=== PATIENT | male | born 1935 | race Caucasian/White ===

== ENCOUNTER → 2018-08-22 10:26 | Outpatient (CLI) | payer OTHER, SELFPAY | PROVIDERS: Family Provider Internal Medicine; PCP Internal Medicine; Visit Provider Family Medicine | DX: C16.9 Malignant neoplasm of stomach, unspecified (principal) | CPT/HCPCS: 99212 ==

== ENCOUNTER → 2018-08-23 15:49 | Outpatient (CLI) | payer OTHER, SELFPAY ==
--- NOTE | 2018-08-23 17:05 | DI.US.S_ITS ---
PROCEDURE: US CAROTID DOPPLER BI INDICATIONS: Peripheral vascular disease TECHNIQUE: Color and pulse Doppler interrogation was performed of both carotid systems, with image documentation and velocity measurements. COMPARISON: [facility], [place], CAROTID ARTERY DOPPLER BILAT, 02/28/2012, 11:10. [facility], [place], CAROTID ARTERY DOPPLER BILAT, 03/05/2010, 9:18. [facility], [place], CAROTID ARTERY DOPPLER BILAT, 05/15/2009, 8:51. [facility], [place], CAROTID ARTERY DOPPLER BILAT, 07/04/2015, 12:22. [facility], CT, SOFT TISSUE NECK W CONTRAST, 12/29/2017, 15:20. FINDINGS: Stenosis calculations are based on SRU (Society of Radiologists in Ultrasound) criteria. Right side: Brachial blood pressure: 138/76 mm Hg. Common carotid artery peak systolic velocity: 72 cm/sec (prior 57 cm/s). Internal carotid artery peak systolic velocity: Occluded Internal carotid artery end diastolic velocity: Occluded External carotid artery peak systolic velocity: 129 cm/sec (prior 89 cm/s). ICA/CCA peak systolic ratio: Occluded Westbrook scale imaging description: There is an occluded right internal carotid artery. Percent internal carotid artery stenosis: 100% Vertebral artery: Flow direction is antegrade. Left side: Brachial blood pressure: 139/74 mm Hg. Common carotid artery peak systolic velocity: 93 cm/sec (prior 111 cm/s). Internal carotid artery peak systolic velocity: 218 cm/sec (prior 80 cm/s). Internal carotid artery end diastolic velocity: 55 cm/sec (prior 80 cm/s). External carotid artery peak systolic velocity: 94 cm/sec (prior 97 cm/s). ICA/CCA peak systolic ratio: 2.3 (prior 0.72). Westbrook scale imaging description: Moderate atherosclerotic changes are seen. Percent internal carotid artery stenosis: 50-69% by velocity criteria. Vertebral artery: Flow direction is antegrade. 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 By velocity criteria, there is a moderate stenosis (between 50 and 69% stenosis) within the left proximal internal carotid artery. The true degree of stenosis is felt most likely to be at the upper end of this range. Dictated by: Albert Landis M.D. on 08/23/2018 at 17:03 Approved by: Albert Landis M.D. on 08/23/2018 at 17:06
== END ==
PROVIDERS: PCP Internal Medicine; Visit Provider Internal Medicine
DX: I65.23 Occlusion and stenosis of bilateral carotid arteries (principal); I73.9 Peripheral vascular disease, unspecified
CPT/HCPCS: 93880

== ENCOUNTER → 2018-09-11 12:05 | Outpatient (CLI) | payer OTHER, SELFPAY ==
[2018-09-11 12:23] LABS: Add Manual Diff / Slide Review NO; Basophils Percent Auto 0.7 % (0-2); Eosinophils Percent Auto 17.7 % (2-4); Hematocrit 39.9 % (41-53); Hemoglobin 13.7 g/dL (13.5-17.5); Lymphocytes Percent Auto 19.5 % (25-40); Mean Corpuscular HGB Conc 34.4 % (30-36); Mean Corpuscular Hemoglobin 34.3 PG (26-34); Mean Corpuscular Volume 99.8 fL (80-100); Neutrophils Absolute Auto 5700 /uL (3000-5900); Neutrophils Percent Auto 56.1 % (50-75); Platelet Count 224 X10^3/uL (150-400); Red Cell Distribution Width 12.9 % (11.6-14.8); White Blood Cell Count 10.2 X10^3/uL (4.5-11.0)
[2018-09-11 12:42] LABS: Erythrocyte Sedimentation Rate 15 MM/HR (0-15)
[2018-09-11 13:27] LABS: Alanine Aminotransferase 23 IU/L (21-72); Albumin 4.5 g/dL (3.5-5.0); Albumin Globulin Ratio 1.7 (1.0-2.8); Alkaline Phosphatase 65 U/L (38-126); Aspartate Aminotransferase 28 IU/L (17-59); BUN Creatinine Ratio 13.8 (6-22); Bilirubin Total 0.4 mg/dL (0.2-1.3); Blood Urea Nitrogen 18 mg/dL (9-20); C-Reactive Protein Quant 1.1 mg/dL (<1.0); Calcium 9.7 mg/dL (8.4-10.2); Carbon Dioxide 28 mmol/L (22-32); Chloride 103 mmol/L (98-107); Estimated Glomerular Filt Rate 52.9 mL/min (>60); Globulin 2.7 g/dL (1.7-4.1); Glucose 98 mg/dL (80-110); HEMOLYSIS < 15 (0-50); Potassium 4.8 mmol/L (3.4-5.1); Sodium 141 mmol/L (137-145); Total Protein 7.2 g/dL (6.3-8.2)
[2018-09-11 13:39] LABS: Free T4, Direct Thyroxine 0.82 ng/dL (0.78-2.19)
[2018-09-11 15:01] LABS: Thyroid Stimulating Hormone 4.05 uIU/mL (0.47-4.68)
== END ==
PROVIDERS: PCP Internal Medicine; Visit Provider Internal Medicine
DX: C83.10 Mantle cell lymphoma, unspecified site (principal); I25.10 Atherosclerotic heart disease of native coronary artery without angina pectoris
CPT/HCPCS: 36415; 80053; 84439; 84443; 85025; 85651; 86140

== ENCOUNTER 2018-11-24 13:28 | Emergency (ER) | payer OTHER, SELFPAY ==
--- NOTE | 2018-11-24 13:32 | ED.GENADULT ---
HPI - General Adult General Chief complaint: Recheck/Abnormal Lab/Rx Stated complaint: elevated potassium Time Seen by Provider: 11/24/18 13:30 Source: patient Mode of arrival: ambulatory Limitations: no limitations History of Present Illness HPI narrative: 83-year-old male with history of lymphoma currently undergoing palliative radiation here for evaluation after he was sent to the emergency department by his oncologist. He was sent because he had a potassium 6.5 and also an elevation in his creatinine. This was blood work that was drawn before today it was just reviewed when he was at his oncologist appointment. Patient states that in general he does not feel well. 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 He has had a history of C diff in the past and he states he feels somewhat like he did when he had C diff Related Data Home Medications Medication Instructions Recorded Confirmed lisinopril 10 mg PO QDAY #0 12/01/17 11/24/18 clopidogrel 75 mg tablet 75 mg PO DAILY 08/10/18 11/24/18 Previous Rx's Medication Instructions Recorded metoprolol succinate 50 mg PO QDAY #30 ter 12/01/17 simvastatin 80 mg PO HS #60 tab 12/01/17 Allergies Allergy/AdvReac Type Severity Reaction Status Date / Time No Known Drug Allergies Allergy Verified 11/24/18 10:57 Review of Systems Constitutional Reports fatigue, Denies fever(s) and Reports malaise Cardiovascular Denies chest pain and Reports dyspnea (This is not new.) Respiratory Reports dyspnea (This is not new.) Gastrointestinal Gastrointestinal: Denies abdominal pain, Denies change in bowel habits, Reports nausea and Denies vomiting Genitourinary Denies dysuria Musculoskeletal Denies myalgias and Denies arthralgias Integumentary/Breasts Denies lesions and Denies rash Neurologic Denies behavioral changes Psychiatric Denies behavioral changes Endocrine Reports fatigue Hematologic/Lymphatic Comments: Not on anticoagulation PFSH Social History Smoking Status: Former smoker Exam Initial Vital Signs Initial Vital Signs: Vital Signs Temperature 97.4 F L 11/24/18 13:35 Pulse Rate 113 H 11/24/18 13:35 Respiratory Rate 15 11/24/18 13:35 Blood Pressure 149/70 H 11/24/18 13:35 Pulse Oximetry 100 11/24/18 13:35 Const General: cooperative, comfortable, well developed, well groomed and No acute distress Orientation: alert, awake and oriented x3 HENMT Head: normal to inspection Resp Effort & Inspection: normal respiratory effort Auscultation: clear to auscultation bilaterally Cardio Rate: regular rate Rhythm: regular rhythm Pulses: radial pulses present GI Inspection: non-distended Palpation: soft, No firm and No tender Skin Lesions: no lesions Rashes: no rashes Neuro General: alert, awake and oriented x3 Extrem General: normal to inspection and capillary refill normal Psych Appearance: grossly normal and well kempt Course Orders Ordered: ED Orders 11/24/18 13:33 EKG-12 Lead Stat 11/24/18 13:52 Complete Blood Count AUTO DIFF Stat Comprehensive Metabolic Panel Stat Lipase Stat Vital Signs - 8 hr 11/24/18 13:35 Temperature 97.4 F L Pulse Rate 113 H Respiratory Rate 15 Blood Pressure 149/70 H Pulse Oximetry 100 Medical Decision Making Lab Data Result diagrams: 11/24/18 13:52 11/24/18 13:52 Lab Results 11/24/18 11/24/18 Range/Units 13:52 13:52 WBC 14.3 H (4.5-11.0) X10^3/uL RBC 3.27 L (4.5-5.9) X10^6/uL Hgb 10.9 L (13.5-17.5) g/dL Hct 32.7 L (41-53) % MCV 100.1 H (80-100) fL MCH 33.4 (26-34) PG MCHC 33.4 (30-36) % RDW 12.8 (11.6-14.8) % Plt Count 234 (150-400) X10^3/uL Neut % (Auto) Not Reportable Lymph % (Auto) Not Reportable Mower % (Auto) Not Reportable Eos % (Auto) Not Reportable Baso % (Auto) Not Reportable Lymph # (Auto) Not Reportable Mower # (Auto) Not Reportable Baso # (Auto) Not Reportable Total Counted 100 Seg Neutrophils % 46.0 (38-70) % Lymphocytes % (Manual) 40.0 (25-45) % Atypical Lymphs % 9.0 H ( - 0) % Monocytes % (Manual) 3.0 (2-11) % Eosinophils % (Manual) 2.0 (2-4) % Neutrophils # (Manual) 6578 H (4457-0168) /uL RBC Morphology Not Reportable Anisocytosis 2+ H Sodium 136 L (137-145) mmol/L Potassium 5.4 H (3.4-5.1) mmol/L Chloride 110 H (98-107) mmol/L Carbon Dioxide 16 L (22-32) mmol/L BUN 75 H (9-20) mg/dL Creatinine 2.20 H (0.66-1.25) mg/dL Estimated GFR 28.8 L (>60) mL/min BUN/Creatinine Ratio 34.1 H (6-22) Glucose 111 H (80-110) mg/dL Calcium 8.8 (8.4-10.2) mg/dL Total Bilirubin 0.3 (0.2-1.3) mg/dL AST 19 (17-59) IU/L ALT 25 (21-72) IU/L Alkaline Phosphatase 77 (38-126) U/L Total Protein 6.6 (6.3-8.2) g/dL Albumin 3.9 (3.5-5.0) g/dL Globulin 2.7 (1.7-4.1) g/dL Albumin/Globulin Ratio 1.4 (1.0-2.8) Lipase 455 H (23-300) U/L ECG Data Attestation: I personally reviewed and interpreted this ECG as follows: Prior ECG tracings: not available for review Interpretation: Sinus rhythm Ventricular rate of 99 Normal axis Normal QRS Normal QTC No peaked T-waves MDM Narrative Medical decision making narrative: Patient has no EKG changes. He is asymptomatic. His potassium today is better from earlier today. His creatinine is still elevated. I do not feel that he needs admitted to the hospital. Does not need treated for his potassium of 5.4. He does have a follow-up with his oncologist at the beginning of next month. He was instructed that he needed to contact his primary care doctor for a follow-up in the next couple days. He was given return precautions. He expressed understanding and agreement with plan. Discharge Plan Departure Patient Disposition: Home Clinical Impression: Hyperkalemia Instructions: DI for Hyperkalemia Activity Restrictions/Additional Instructions: Continue all of your medications as directed. Keep all of your scheduled medical appointments. Recommend that you contact your primary care today to discuss follow-up within the next week. Increase your fluid intake. Return to the emergency department for any new or worsening symptoms Prescriptions: No Action metoprolol succinate 50 MG tablet extended release 24 hr 50 mg PO QDAY Qty: 30 RF: 0 simvastatin 40 MG tablet 80 mg PO HS Qty: 60 RF: 0 lisinopril 10 MG tablet 10 mg PO QDAY Qty: 0 RF: 0 clopidogrel [Plavix] 75 mg tablet 75 mg PO DAILY RF: 0
[2018-11-24 13:35] VITALS: BP 149/70; PULSE 113; RESP 15; TEMP 36.3; O2SAT 100
[2018-11-24 13:57] LABS: Hematocrit 32.7 % (41-53); Hemoglobin 10.9 g/dL (13.5-17.5); Mean Corpuscular HGB Conc 33.4 % (30-36); Mean Corpuscular Hemoglobin 33.4 PG (26-34); Mean Corpuscular Volume 100.1 fL (80-100); Platelet Count 234 X10^3/uL (150-400); Red Blood Cell Count 3.27 X10^6/uL (4.5-5.9); Red Cell Distribution Width 12.8 % (11.6-14.8); White Blood Cell Count 14.3 X10^3/uL (4.5-11.0)
[2018-11-24 13:58] LABS: Add Manual Diff / Slide Review YES
[2018-11-24 14:08] LABS: Alanine Aminotransferase 25 IU/L (21-72); Albumin 3.9 g/dL (3.5-5.0); Albumin Globulin Ratio 1.4 (1.0-2.8); Alkaline Phosphatase 77 U/L (38-126); Aspartate Aminotransferase 19 IU/L (17-59); BUN Creatinine Ratio 34.1 (6-22); Bilirubin Total 0.3 mg/dL (0.2-1.3); Blood Urea Nitrogen 75 mg/dL (9-20); Calcium 8.8 mg/dL (8.4-10.2); Carbon Dioxide 16 mmol/L (22-32); Chloride 110 mmol/L (98-107); Estimated Glomerular Filt Rate 28.8 mL/min (>60); Globulin 2.7 g/dL (1.7-4.1); Glucose 111 mg/dL (80-110); HEMOLYSIS < 15 (0-50); Lipase 455 U/L (23-300); Sodium 136 mmol/L (137-145); Total Protein 6.6 g/dL (6.3-8.2)
[2018-11-24 14:12] LABS: Potassium 5.4 mmol/L (3.4-5.1)
[2018-11-24 14:14] LABS: Anisocytosis 2+; Neutrophils Absolute Manual 6578 /uL (3000-5900); Total Cells Counted 100
[2018-11-24 14:37] VITALS: BP 117/61; PULSE 90; RESP 20; O2SAT 100
== END 2018-11-24 14:48 | disposition home or self-care (01) ==
PROVIDERS: Emergency Provider Emergency Medicine; PCP Internal Medicine
DX: E87.5 Hyperkalemia (principal)
CPT/HCPCS: 36415; 80053; 83690; 85025; 93005; 93010; 96360; 99215; 99282; 99284

== ENCOUNTER → 2018-11-30 11:44 | Outpatient (CLI) | payer OTHER, SELFPAY ==
--- NOTE | 2018-11-30 11:47 | DI.RAD.S_ITS ---
PROCEDURE: XR ACUTE ABDOMEN SERIES INDICATIONS: diarrhea TECHNIQUE: One view chest and two views of the abdomen were acquired. COMPARISON: [facility], CT, CT ABDOMEN PELVIS WITH CONTRAST, 11/02/2018, 12:40. FINDINGS: Surgical changes and devices: Multiple surgical clips in the pelvis. Chest: Lungs are clear. Heart size is normal. No pleural effusions. No pneumoperitoneum. Abdomen: Bowel gas pattern is nonspecific with paucity of bowel gas. No suspicious calcifications. Visualized solid organ contours appear normal. Bones: No suspicious bony lesions. IMPRESSION: Nonspecific bowel gas pattern. If clinical symptoms persist or clinical suspicion for pathology is high, CT with contrast is suggested for further evaluation. Dictated by: Anne Chen M.D. on 11/30/2018 at 17:19 Approved by: Anne Chen M.D. on 11/30/2018 at 17:21
[2018-11-30 12:27] LABS: Add Manual Diff / Slide Review NO; Basophils Absolute Auto 100 /uL (0-100); Basophils Percent Auto 0.5 % (0-2); Eosinophils Absolute Auto 600 /uL (0-450); Eosinophils Percent Auto 2.6 % (2-4); Hematocrit 35.9 % (41-53); Hemoglobin 11.6 g/dL (13.5-17.5); Lymphocytes Absolute Auto 12700 /uL (1100-4500); Lymphocytes Percent Auto 51.3 % (25-40); Mean Corpuscular HGB Conc 32.4 % (30-36); Mean Corpuscular Hemoglobin 32.8 PG (26-34); Mean Corpuscular Volume 101.2 fL (80-100); Monocytes Absolute Auto 900 /uL (0-900); Monocytes Percent Auto 3.7 % (3-14); Neutrophils Absolute Auto 10300 /uL (1500-7000); Neutrophils Percent Auto 41.9 % (50-75); Platelet Count 264 X10^3/uL (150-400); Red Blood Cell Count 3.55 X10^6/uL (4.5-5.9); Red Cell Distribution Width 13.3 % (11.6-14.8); White Blood Cell Count 24.7 X10^3/uL (4.5-11.0)
[2018-11-30 13:42] LABS: Alanine Aminotransferase 39 IU/L (21-72); Albumin 4.3 g/dL (3.5-5.0); Albumin Globulin Ratio 1.9 (1.0-2.8); Alkaline Phosphatase 89 U/L (38-126); Aspartate Aminotransferase 22 IU/L (17-59); BUN Creatinine Ratio 25.6 (6-22); Bilirubin Total 0.3 mg/dL (0.2-1.3); Blood Urea Nitrogen 82 mg/dL (9-20); Calcium 10.1 mg/dL (8.4-10.2); Carbon Dioxide 15 mmol/L (22-32); Chloride 108 mmol/L (98-107); Estimated Glomerular Filt Rate 18.7 mL/min (>60); Globulin 2.3 g/dL (1.7-4.1); Glucose 127 mg/dL (80-110); HEMOLYSIS < 15 (0-50); Lipase 596 U/L (23-300); Sodium 137 mmol/L (137-145); Total Protein 6.6 g/dL (6.3-8.2)
[2018-11-30 14:00] LABS: Potassium 6.6 mmol/L (3.4-5.1)
== END ==
PROVIDERS: PCP Internal Medicine; Visit Provider Internal Medicine
DX: C83.10 Mantle cell lymphoma, unspecified site (principal); R19.7 Diarrhea, unspecified; E78.2 Mixed hyperlipidemia
CPT/HCPCS: 36415; 74022; 80053; 83690; 85025

== ENCOUNTER 2018-11-30 16:38 | Inpatient (IN) | payer OTHER, SELFPAY ==
[2018-11-30 16:40] VITALS: BP 119/61; PULSE 111; RESP 18; TEMP 36.1; O2SAT 100
[2018-11-30] MEDS: SODIUM POLYSTYRENE SULFON/SORB 15 GM/60 ML CUP PO (17:27)
[2018-11-30] MEDS: FUROSEMIDE 40 MG/4 ML VIAL IV (17:27)
[2018-11-30] MEDS: SODIUM CHLORIDE 0.9% 1,000 ML 1000 ML IV ×2 (17:27→18:35)
[2018-11-30 18:00] LABS: BUN Creatinine Ratio 28.3 (6-22); Blood Urea Nitrogen 85 mg/dL (9-20); Carbon Dioxide 15 mmol/L (22-32); Chloride 107 mmol/L (98-107); Estimated Glomerular Filt Rate 20.1 mL/min (>60); Glucose 100 mg/dL (80-110); HEMOLYSIS < 15 (0-50); Sodium 135 mmol/L (137-145)
[2018-11-30 18:01] LABS: Magnesium 2.2 mg/dL (1.6-2.3); Phosphorous 5.5 mg/dL (2.3-3.7)
[2018-11-30 18:03] LABS: Potassium 6.1 mmol/L (3.4-5.1)
--- NOTE | 2018-11-30 18:26 | ED_ITS ---
HPI - Recheck/Abnormal Lab/Rx General Chief Complaint: Recheck/Abnormal Lab/Rx Stated Complaint: POTASSIUM IS HIGH Time Seen by Provider: 11/30/18 16:48 Source: patient Mode of arrival: ambulatory Limitations: no limitations History of Present Illness HPI narrative: Patient is a jake 83-year-old male presenting with generalized weakness. He has had some outpatient blood work which revealed a potassium of 6.6 and a creatinine of 3.2. He has been receiving radiation treatments of for lymphoma. He has had significant decrease in oral intake not eating or drinking very much. He has had some mild diarrhea from his colostomy as well. No fever or chills. But overall not feeling great. MD complaint: abnormal lab Related Data Home Medications Medication Instructions Recorded Confirmed clopidogrel 75 mg tablet 75 mg PO DAILY 08/10/18 11/30/18 aspirin 81 mg PO DAILY 11/30/18 11/30/18 metoprolol succinate 50 mg PO DAILY 11/30/18 11/30/18 simvastatin 80 mg PO BEDTIME 11/30/18 11/30/18 Allergies Allergy/AdvReac Type Severity Reaction Status Date / Time No Known Drug Allergies Allergy Verified 11/30/18 16:47 Review of Systems Review of Systems ROS Unobtainable: All systems reviewed & are unremarkable except as noted in HPI and below Constitutional Reports anorexia, Denies chills and Reports weakness Cardiovascular Denies chest pain, Denies irregular heart rhythm, Denies lightheadedness, Denies palpitations, Denies dyspnea, Denies dyspnea on exertion and Denies orthopnea Respiratory Denies cough, Denies dyspnea, Denies dyspnea on exertion and Denies wheezing Gastrointestinal Gastrointestinal: Denies abdominal pain, Denies change in bowel habits, Reports diarrhea, Denies nausea and Denies vomiting Genitourinary Denies hematuria, Denies flank pain, Denies urinary incontinence and Denies urinary urgency Musculoskeletal Denies back pain, Denies muscle weakness, Denies numbness and Denies tingling Neurologic Denies numbness, Denies tingling and Reports weakness Endocrine Denies palpitations Allergic/Immunologic Denies wheezing [facility] Social History Smoking Status: Former smoker Exam Initial Vital Signs Initial Vital Signs: Vital Signs Temperature 97.0 F L 11/30/18 16:40 Pulse Rate 111 H 11/30/18 16:40 Respiratory Rate 18 01/31/19 16:40 Blood Pressure 119/61 11/30/18 16:40 Pulse Oximetry 100 11/30/18 16:40 GENERAL: Generally weak appearing male no acute distress HEENT: Head atraumatic,EOMI, pupils reactive, dry mucous membranes, neck is supple CARDIOVASCULAR: Regular rate and rhythm without murmurs, rubs or gallops. RESPIRATORY: Breath sounds equal bilaterally, no wheezes rales or rhonchi. ABDOMEN: Soft, nontender. Normoactive bowel sounds all 4 quadrants. No guarding or rebound. Ostomy noted stoma is pink very tender around the area of this is where the lymphoma mass is : No CVA tenderness EXTREMITIES: Normal range of motion, no clubbing or edema. Neurovascularly intact NEUROLOGICAL: Alert and oriented x4.Normal gait and speech. SKIN: Warm, dry, no laceration, no petechiae, no rashes or lesions. Course Orders Ordered: ED Orders 11/30/18 17:00 EKG-12 Lead Stat 11/30/18 17:35 Basic Metabolic Panel Stat Magnesium Stat Phosphorous Stat Discontinued Medications Furosemide (Lasix) 40 mg IV NOW ONE Stop: 11/30/18 17:01 Last Admin: 11/30/18 17:27 Dose: 40 mg Sodium Chloride (Normal Saline 0.9%) 1,000 mls @ 1,000 mls/hr IV BOLUS ONE Stop: 11/30/18 17:59 Last Admin: 11/30/18 17:27 Dose: 1,000 mls/hr Sodium Chloride (Normal Saline 0.9%) 1,000 mls @ 1,000 mls/hr IV BOLUS ONE Stop: 11/30/18 18:00 Sodium Polystyrene Sulfonate (Kayexalate) 15 gm PO NOW ONE Stop: 11/30/18 17:01 Last Admin: 11/30/18 17:27 Dose: 15 gm Vital Signs - 8 hr 11/30/18 16:40 Temperature 97.0 F L Pulse Rate 111 H Respiratory Rate 18 Blood Pressure 119/61 Pulse Oximetry 100 MDM - Recheck/Abnormal Lab/Rx Lab Data Attestation: I reviewed the patient's lab results. Result diagrams: 11/30/18 17:35 Lab Results 11/30/18 11/30/18 Range/Units 17:35 17:35 Sodium 135 L (137-145) mmol/L Potassium 6.1 H (3.4-5.1) mmol/L Chloride 107 (98-107) mmol/L Carbon Dioxide 15 L (22-32) mmol/L BUN 85 H (9-20) mg/dL Creatinine 3.00 H (0.66-1.25) mg/dL Estimated GFR 20.1 L (>60) mL/min BUN/Creatinine Ratio 28.3 H (6-22) Glucose 100 (80-110) mg/dL Calcium 10.0 (8.4-10.2) mg/dL Phosphorus 5.5 H (2.3-3.7) mg/dL Magnesium 2.2 (1.6-2.3) mg/dL ECG Data Attestation: I personally reviewed and interpreted this ECG as follows: Prior ECG tracings: available for review Interpretation: Normal sinus rhythm rate [address] changes or T-wave inversions she does have some mild peaked T-waves in precordial leads. MDM Narrative Medical decision making narrative: Patient overall is not tolerating oral fluids. This is likely why he is potassium and creatinine have increased from previously. He is also noted to have some leukocytosis but is really afebrile. He has not had any infectious symptoms. Patient should likely stay in the hospital though it was hopeful he could have IV fluids and return home. However at this time based on his decreased oral intake and elevated labs he would benefit from IV hydration and correction of the potassium. Dr. Abdul has been updated on patient's symptoms test results and happy to accept patient. Discharge Plan Departure Patient Disposition: Admitted As Inpatient Clinical Impression: Acute hyperkalemia, Acute kidney injury
[2018-11-30 19:22] VITALS: BMI 23.1
[2018-11-30] MEDS: DEXTROSE 50 % IN WATER 25 GM/50 ML SYRINGE IV (19:29)
[2018-11-30] MEDS: INSULIN REGULAR 100 UNIT/ML 3 ML VIAL 10 UNIT IV (19:29)
[2018-11-30 19:50] VITALS: BP 139/59; PULSE 112; RESP 19; TEMP 36.7; O2SAT 98
[2018-11-30] MEDS: SODIUM CHLORIDE 0.9% 1,000 ML 125 ML IV (21:48)
[2018-11-30] MEDS: diphenhydrAMINE 50 MG/ML VIAL 25 MG IV (22:15)
[2018-11-30] MEDS: ONDANSETRON 4 MG/2 ML INJ IV (23:49)
[2018-11-30 23:55] VITALS: O2SAT 98
[2018-12-01] VITALS (8 sets, daily range): BP systolic 80–122; BP diastolic 49–71; PULSE 77–110; RESP 16–20; TEMP 36.4–36.7; O2SAT 94–100; BMI 23.4
[2018-12-01 02:45] LABS: Appearance Urine UA CLEAR; Bacteria Urine None Seen; Bilirubin Urine UA NEGATIVE (NEGATIVE); Color Urine UA YELLOW; Glucose Urine UA NEGATIVE (Negative); Ketones Urine UA NEGATIVE (NEGATIVE); Leukocyte Esterase Urine UA NEGATIVE (NEGATIVE); Nitrite Urine UA NEGATIVE (Negative); Occult Blood Urine UA NEGATIVE (Negative); Protein Urine UA NEGATIVE (Negative); RBC Urine None Seen (0-5/HPF); Specific Gravity Urine UA 1.015 (1.000-1.035); Urobilinogen Urine UA 0.2 E.U./dL (0.2); WBC Urine None Seen (0-5/HPF)
[2018-12-01 04:29] LABS: Culture Indicated Urine Cult Not Indicated; Urine Comments Microscopic Normal
[2018-12-01] MEDS: SODIUM CHLORIDE 0.9% 1,000 ML 125 ML IV ×2 (05:43→13:01)
--- NOTE | 2018-12-01 06:15 | PC.NURSE ---
NOC NOTE Pt reporting burning pain in ABD 4-03/09, he has declined all offered medications for pain. He states that he was told that the radiation he is receiving for lymphoma would not cause any discomfort. He reports having little to no appetite for nearly 2 weeks. He was nauseated at 0000 and was medicated at that time. He has agreed to eat come crackers and try some jello this morning. Pt states that he has a history of C-diff and thinks he may have it again.
[2018-12-01 07:14] LABS: BUN Creatinine Ratio 29.6 (6-22); Blood Urea Nitrogen 68 mg/dL (9-20); Calcium 8.7 mg/dL (8.4-10.2); Carbon Dioxide 15 mmol/L (22-32); Chloride 114 mmol/L (98-107); Estimated Glomerular Filt Rate 27.4 mL/min (>60); Glucose 94 mg/dL (80-110); HEMOLYSIS < 15 (0-50); Potassium 5.1 mmol/L (3.4-5.1); Sodium 139 mmol/L (137-145)
--- NOTE | 2018-12-01 07:45 | P.HP_ITS ---
History of Present Illness Date Patient Seen: 12/01/18 Time Patient Seen: 07:40 Chief complaint: POTASSIUM IS HIGH Narrative: Pleasant 83-year-old male who is been struggling recently likely due to radiation therapy for recurrent mantle cell lymphoma Patient diagnosed years ago with a lymphoma and received treatment. Over the last several months he has noticed increasingly obstructive mass in the stoma of his ileostomy. (He is status post colectomy for ulcerative colitis years and years ago). This was biopsied and found to be recurrent lymphoma. After consultation with Oncology he initiated therapy to with localized radiation to treat this specific recurrence and is considering options for more systemic treatment He has self discontinued radiation treatments because of ongoing weakness fatigue and specially increased ileostomy output with decreased appetite and inability to really take much in the way of oral fluids. He was seen in the oncology clinic last week found to have an elevated creatinine and potassium. He went to the ER where numbers and come down on their own after some IV fluids in the infusion center. He presented to my clinic on the 30 of November with hypotension and persistent symptoms. Repeat labs showed worsening of his creatinine and potassium and he was redirected to the emergency department. His labs were course repeated and they were somewhat better but was elected to admit him for more ongoing fluid resuscitation etc Patient History Medical History Coronary artery disease (Chronic ~04/2016) Peripheral vascular disease (Chronic) 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) GERD (gastroesophageal reflux disease) (Chronic) Mixed hyperlipidemia (Chronic 06/23/11) Elevated prostate specific antigen (PSA) (Chronic 06/23/11) Ileostomy present (Inactive 01/21/14) Status post insertion of drug-eluting stent into right coronary artery for coronary artery disease (Inactive 05/06/16) Hematuria (Resolved) Ulcerative colitis (Resolved) Surgical History Status post colectomy (~1969) Status post transurethral resection of prostate Social History household members: friend(s) Smoking Status: Former smoker alcohol intake: current Family & Social History Social History: household members friend(s) Prior Living Arrangements House Safety & Behavioral: Feels Safe in Current Yes Environment Been Physically Hurt or No Threatened By a Person Suicidal Ideation Description None Suicide Plan Description No Plan Tobacco & Substance use: Smoking Status Former smoker alcohol intake current alcohol intake frequency 0-2 drinks per day Substance Use Type does not use Meds Home Medications Medication Instructions Recorded Confirmed Type clopidogrel 75 mg tablet 75 mg PO DAILY 08/10/18 11/30/18 History aspirin 81 mg PO DAILY 11/30/18 11/30/18 History metoprolol succinate 50 mg PO DAILY 11/30/18 11/30/18 History simvastatin 80 mg PO BEDTIME 11/30/18 11/30/18 History Allergies Allergy/AdvReac Type Severity Reaction Status Date / Time No Known Drug Allergies Allergy Verified 11/30/18 16:47 Review of Systems Constitutional Constitutional: Denies excessive sweating, Denies fever(s), Denies headache(s), Reports lack of energy, Reports malaise, Reports poor appetite, Reports weakness , Denies weight gain and Reports weight loss ENT Ears, Nose, Mouth, and Throat: No difficulty swallowing, No headache(s) and No neck pain Cardiovascular Cardiovascular: Denies chest pain, Denies fainting, Denies fast heart rate, Denies irregular heart rhythm, Denies rapid, pounding, or irregular heartbeat, Denies shortness of breath, Denies shortness of breath with activity and Denies slow heart rate Respiratory Respiratory: Denies dyspnea and Denies dyspnea on exertion Gastrointestinal Gastrointestinal: Denies abdominal pain, Denies bloating, Denies dysphagia, Reports nausea, Denies vomiting and Denies hematemesis Genitourinary Genitourinary: Denies hematuria, Denies difficulty urinating and Denies urinary frequency Musculoskeletal Musculoskeletal: Denies abnormal gait, Denies myalgias, Denies arthralgias, Denies limited range of motion and Denies neck pain Integumentary/Breasts Skin/Breast: Denies bleeding lesions, Denies change in pigmentation, Denies changing lesions, Denies new lesions, Denies rash, Denies skin swelling, Denies sores and Denies jaundice Neurologic Neurologic: Denies abnormal gait, Denies behavioral changes, Denies confusion, Denies syncope, Denies headache(s), Denies memory loss and Reports weakness Psychiatric Psychiatric: Denies behavioral changes, Denies change in appetite, Denies confusion, Denies difficulty concentrating, Denies auditory hallucinations, Denies memory loss, Denies mood swings and Denies suicidal ideation Endocrine Endocrine: Denies excessive sweating and Denies palpitations Hematologic/Lymphatic Hematologic/Lymphatic: Denies easy bleeding, Denies easy bruising and Denies lymphadenopathy Exam Vital Signs (past 8 hours): - 11/30/18 23:55 12/01/18 00:00 12/01/18 03:52 Temperature 97.5 F L Pulse Rate 101 H 110 H Respiratory Rate 20 20 Blood Pressure 90/49 L 80/60 L Pulse Oximetry 98 97 98 Oxygen Delivery Method Room Air Oxygen Flow Rate 0 Narrative Exam Narrative: HEENT-unremarkable Neck-no lymphadenopathy Lungs-clear Heart-regular rate and rhythm Abdomen-positive to somewhat hyperactive bowel tones, no rebound guarding or tenderness, soft Extremities-no cyanosis clubbing or edema Neuro-alert orient x3, cranial nerves appear to be intact, no focal findings, gait not tested Objective Labs Result Diagrams: 12/01/18 06:25 Labs: Laboratory Results - last 24 hr 11/30/18 11/30/18 12/01/18 17:35 17:35 02:31 Sodium 135 L Potassium 6.1 H Chloride 107 Carbon Dioxide 15 L BUN 85 H Creatinine 3.00 H Estimated GFR 20.1 L BUN/Creatinine Ratio 28.3 H Glucose 100 Calcium 10.0 Phosphorus 5.5 H Magnesium 2.2 Urine Color Yellow Urine Appearance Clear Urine pH 5.0 Ur Specific [place] 1.015 Urine Protein Negative Urine Glucose (UA) Negative Urine Ketones Negative Urine Occult Blood Negative Urine Nitrate Negative Urine Bilirubin Negative Urine Urobilinogen 0.2 Ur Leukocyte Esterase Negative Urine RBC None seen Urine WBC None seen Urine Bacteria None seen Ur Culture Indicated? Cult not indicated Micro UA Comment Microscopic normal 12/01/18 06:25 Sodium 139 Potassium 5.1 Chloride 114 H Carbon Dioxide 15 L BUN 68 H Creatinine 2.30 H Estimated GFR 27.4 L BUN/Creatinine Ratio 29.6 H Glucose 94 Calcium 8.7 Phosphorus Magnesium Urine Color Urine Appearance Urine pH Ur Specific [place] Urine Protein Urine Glucose (UA) Urine Ketones Urine Occult Blood Urine Nitrate Urine Bilirubin Urine Urobilinogen Ur Leukocyte Esterase Urine RBC Urine WBC Urine Bacteria Ur Culture Indicated? Micro UA Comment Assessment & Plan Plan: Assessment/Plan Narrative: 1. Acute kidney injury with hyperkalemia-likely secondary to decreased oral intake. Numbers of already improved with some IV hydration. Continue with vigorous IV hydration 2. GI/nutrition- patient with decreased oral intake, encourage increased oral intake. Hopefully again as he gets further away from his radiation treatments this will improve. Will check stool for infectious etiology. Patient does have a history of C diff in the past. Will also have the ostomy evaluated. Patient will have supplies brought from home 3. Lymphoma-patient will continue off of treatment for now 4. History coronary disease-continue metoprolol despite mild hypotension. Hopefully this will improve once his volume status is normalized 5. Code status-patient's expressed wishes previously to be no code do not resuscitate no heroic interventions. In fact he is considering stopping altogether any treatment for his lymphoma etc. Will make him a no code for the purposes this hospitalization which seems entirely in line with patient's wishes and desires. Quality VTE Deep Vein Thrombosis/Pulmonary Embolism Present on Admission: No
[2018-12-01] MEDS: HYDROCODONE/ACET 5/325 TABLET 1 TAB PO ×2 (08:36→19:28)
[2018-12-01] MEDS: CLOPIDOGREL 75 MG TABLET PO (08:37)
[2018-12-01] MEDS: ASPIRIN EC 81 MG TABLET PO (08:37)
[2018-12-01] MEDS: METOPROLOL ER 50 MG TABLET PO (08:47)
--- NOTE | 2018-12-01 08:48 | CM.DANOTE ---
Addendum entered by Frida Romero R.N. 12/01/18 15:11: Left message for daughter, Sherine Higginbotham, to call. Original Note: DCP: Case received, EMR reviewed and met with patient. Introduced self and role. DCP template completed with information currently available. Patient is an 83 year old male who admitted yesterday afternoon to the care of the hospitalist team. PCP: Dr. Diaz. Payer: [facility]. Patient came to hospital via family vehicle due to increased weakness. Patient carries diagnosis of Hyperkalemia. Patient has Lymphoma, and has been getting radiation treatments. He also has an ostomy. Met with patient briefly, was quiet, limited engagement. Lives in [place], has daughter that also lives in [place]. Lives alone, is a . Stated that he is independent at home. Looking at Dr. Diaz's note from today, patient is considering not having any further treatment. He is a no code at this time. P: DCP will follow closely, as plan unfolds. May reach out to daughter, Sherine, for further information on patient. Frida Romero RN/[employer]
--- NOTE | 2018-12-01 10:57 | PT.IIE ---
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) GERD (gastroesophageal reflux disease) (Chronic) Mixed hyperlipidemia (Chronic 06/23/11) Elevated prostate specific antigen (PSA) (Chronic 06/23/11) Ileostomy present (Inactive 01/21/14) Status post insertion of drug-eluting stent into right coronary artery for coronary artery disease (Inactive 05/06/16) Hematuria (Resolved) Ulcerative colitis (Resolved) Physical Therapy Inpatient Evaluation/Re-Eval M1 PT/OT-IP Prior Functional Status Start: 12/01/18 10:37 Freq: NEEDED Status: Active Protocol: Document 12/01/18 10:00 (Rec: 12/01/18 10:57 [email or web address]) Medical Review Prior Functional Status Medical History Reviewed Yes Diet/Fluid Consistency Regular Communication No communication deficits noted Mobility and Gait Pt was an independent ambulator at home and community. Pt used his walking stick for community mobility. Pt states he was very mobile who was able to walk a mile without rest. However, pt states his mobility has significantly declined over the past 3 weeks since he started radiation therapy and he had to sit down for rest for short distance amb. Activities of Daily Living and IADL's Pt was independent for all ADLs and IADLs. Used walking stick outside of the house Social History Household Members friend(s) Living Arrangements House Number of Floors (Floors) One Floor Number of Stairs To Enter/Railing? No JACINTA Home Environment Walk in Shower Home Equipment Straight Cane Raised Toilet Seat Without Armrests Grab Bars In Shower Employment Status Retired Additional Social History Comment Pt lives with his friend who is a female at 80s as well. She is also independent but she will be a CG if needed. Pt lives in [facility] who was independent for all ADLs and IADLs. Pt's daughter lives in [facility] as well. Pt started radiation therapy for his Lymphone since 3 weeks ago and he noticed theres significant increased weakness and stomach pain. Pt stopped his treatment since last week and he was found with increased creatinine and potassium. M2 PT-IP Current Condition Start: 12/01/18 10:37 Freq: NEEDED Status: Active Protocol: Document 12/01/18 10:00 HH (Rec: 12/01/18 10:57 [email or web address]) Physical Therapy Current Condition Current Condition Evaluation Date 12/01/18 Treatment Diagnosis Hyperkalemia, difficulty in walking and generalized muscle weakness Onset Date 11/30/18 Weight Bearing Status Weight Bearing Status Weight Bear as Tolerated M3 PT-IP Subjective Start: 12/01/18 10:37 Freq: NEEDED Status: Active Protocol: Document 12/01/18 10:00 HH (Rec: 12/01/18 10:57 [email or web address]) Subjective Physical Therapy Visit Type Type Initial Evaluation Visit Start Time 10:00 Visit Stop Time 10:30 Total Visit Minutes 30 Notes Per RN, pt has been using BSC for toileting. Pt received pain med an hour before PT assessment. Number of REGIONAL CONSTRUCTION MANAGER Visits 0 Physical Therapy Visit Comments Patient Comments I feel a bit better today. Patient Goals To return home with baseline strength and mobility To return home without stomach pain Therapy Pain Assessment Pain When Pain Assessed At Rest Pain Present Pain Present Pain Reported Location Head Intensity 3 Description Dull Pain Management Techniques Timing of Activity with Medications M4 PT-IP Mobility and Gait Start: 12/01/18 10:37 Freq: NEEDED Status: Active Protocol: Document 12/01/18 10:00 HH (Rec: 12/01/18 10:57 [email or web address]) PT-Bed Mobility Assessment Supine to Sit Supine to Sit Minimal Assistance Head of Bed Elevated Bedrails Scooting Scooting to Edge of Bed Standby Assistance PT-Transfer Assessment Sit to and From Stand Sit to and from Stand Minimal Assistance 1 Person Assistance Use of Upper Extremities Equipment Transfer Assistive Device Gait Belt Front Wheeled Walker Transfers Transfer Destination Bed Chair Transfer Technique Stand Step Pivot Transfer Ability Level of Assist Standby Assistance Comments Mobility Comments Pt performed supine to sit with min A on his L arm for pulling. He then stood up from EOB with min A and FWW. Pt rocked back and forth to facilitate momentum in order to stand up. He then amb out of the hallway and back to sink counter to brush teeth and comb hair. Pt was able to maintain balance with L UE support on counter. Pt did not show signs of LOB and acute distress. Gait Assessment Gait Gait Assistance Required: Contact Guard Assist Distance (Feet) 30 Able to Maintain Weight Bearing Status Yes During Gait Assistive Devices Assistive Device Gait Belt Front Wheeled Walker Gait Deviations General Gait Pattern Decreased Stride Length Decreased Feet Clearance Factors Limiting Gait Function Factors Limiting Gait Function Decreased Activity Tolerance Decreased Strength Pain Poor Balance Comments Gait Comments Pt amb from EOB to hallway and stopped at sink counter for cleaning and returned back to bedside chair. Pt used FWW for the first 25 feet with CGA x 1pa. Pt demonstrated decreased feet clearance and stride length and occasionally excessive R lateral shift during amb. Pt states My speed is no where close compared to 3 weeks ago. But i do feel a bit better today. Pt then amb from sink to beside chair without FWW and CGA x 5 feet. Pt did not amb further today due to c/o fatigue Stair Climbing Assessment Comments Stair Climbing Comments did not attempt PT-Balance Assessment Sitting Balance and Reactions Static Sitting Balance Ability Normal Dynamic Sitting Balance Ability Normal Standing Balance and Reactions Static Standing Balance Ability Good Dynamic Standing Balance Ability Good M5 PT-IP Objective Assessments Start: 12/01/18 10:37 Freq: NEEDED Status: Active Protocol: Document 12/01/18 10:00 (Rec: 12/01/18 10:57 [email or web address]) Orientation Orientation/Cognition Level of Alertness Alert Orientation Name Age Birthday Month Date Year Day of Week Place Situation Language Function Ability No Deficits Noted Safety Awareness Understands Safety Issues Memory Description No Deficits Noted Gross Range of Motion Upper Extremity ROM Assessment Within Functional Limits Lower Extremity ROM Assessment Within Functional Limits Strength Upper Extremity Strength Assessment Within Functional Limits Lower Extremity Strength Assessment Within Functional Limits Comments Strength Comments BLE grossly 4/5 Coordination Assessment Gross Coordination Gross Coordination WNL Sensation Assessment Sensation Gross Sensation WNL Muscle Tone Muscle Tone WNL Yes M6 PT-IP Treatment Start: 12/01/18 10:37 Freq: NEEDED Status: Active Protocol: Document 12/01/18 10:00 (Rec: 12/01/18 10:57 [email or web address]) Physical Therapy Treatment Education Education Provided Safety M7 PT-IP Assessment and Plan Start: 12/01/18 10:37 Freq: NEEDED Status: Active Protocol: Document 12/01/18 10:00 (Rec: 12/01/18 10:57 [email or web address]) PT Summary Assessment and Plan Potential Rehabilitation Potential Good Status of Condition at Evaluation Evolving Summary Impairments Pain Strength Balance Bed Mobility Transfers Gait Activity Tolerance Assessment Summary Pt is a pleasant 83yo male admitted to due to hyperkalemia possibly due to his radiation therapy. Pt states he feels better today and was able to amb 30 feet with and without AD. He did demonstrate decreased feet clearance, stride length and slight excessive lateral shift during amb. But overall, he did show safe transfer techniques and good safety awareness. Pt's current limitations are pain and weakness. In my professional opinion, d/c home when pt is medically stable. Goals Bed Mobility Goal Independent Transfer Goal Independent Gait Goal Independent Cane Gait Distance 200 Other Goals with or without AD Days to Meet Goals 5 Frequency of Treatment Frequency Of Treatment Once a Day Treatment Plan Physical Therapy Treatment Plan Bed Mobility Training Transfer Training Gait Training Therapeutic Exercise Balance Retraining Discharge Planning Other Recommendations and Next Treatment supine to sit Focus transfer and gait training with or without AD as maranda Recommendations To Nursing Amount of Assist Needed Standby Assistance 1 Person Assist Discharge Recommendations PT Discharge Recommendations Home Equipment Needed for Home Before FWW possibly. Discharge
--- NOTE | 2018-12-01 11:01 | PC.NURSE ---
Addendum entered by Breann Woodruff R.N. 12/01/18 12:37: GI/PAIN - resting comfortably in bed, continues with poor appetite, does have boost at bedside to sip and did take in soup at lunch, states earlier norco tab did help his abd discomfort, ileostomy emptied liq stool. Original Note: AM NOTE - pt is up to dangle position, states he does not feel well, describes my stomach is killing me, it feels like it is on fire, did not want eat, concern having loose stools ileostomy, reassurred we would assist with any ostomy care prn, discussed pain medications and did accept 5/325mg norco x1 tab and instead of breakfast, enc to sip on boost, ra 98%, hr tachy 102 this am, states he only takes 1/2 50mg metoprolol, admin that dose this am, later up with phys therapy, ambul short distance into hallway slowly, some wobbliness, ret to chair, states the earlier pain medication helped reduce abd discomfort.
--- NOTE | 2018-12-01 15:52 | CM.DPC ---
DCP Cont: Was able to speak to daughter, Sherine. She stated that he lives with a friend. She stated that she does not live far away from him. She stated that the only problem that he has at times is with his ostomy, but he has had it approximately 30 years. She stated that he has been driving, and she has been concerned about him driving when he goes through radiation. She stated that she may move in with him for a while when he is discharged. She stated that he has no POA as of now. P: DCP to continue to follow closely. Frida Romero RN/Rock Crusher
[2018-12-01] MEDS: SODIUM CHLORIDE 0.9% 1,000 ML 150 ML IV (21:01)
[2018-12-02] VITALS (11 sets, daily range): BP systolic 113–140; BP diastolic 58–65; PULSE 73–85; RESP 13–18; TEMP 36.3–36.8; O2SAT 96–100
[2018-12-02] MEDS: ONDANSETRON 4 MG/2 ML INJ IV (01:59)
[2018-12-02] MEDS: SODIUM CHLORIDE 0.9% 1,000 ML 150 ML IV (03:43)
[2018-12-02 06:17] LABS: Add Manual Diff / Slide Review NO; Basophils Absolute Auto 100 /uL (0-100); Basophils Percent Auto 0.4 % (0-2); Eosinophils Absolute Auto 700 /uL (0-450); Eosinophils Percent Auto 4.7 % (2-4); Hematocrit 25.2 % (41-53); Hemoglobin 8.4 g/dL (13.5-17.5); Lymphocytes Absolute Auto 7000 /uL (1100-4500); Lymphocytes Percent Auto 48.1 % (25-40); Mean Corpuscular HGB Conc 33.4 % (30-36); Mean Corpuscular Hemoglobin 33.5 PG (26-34); Mean Corpuscular Volume 100.1 fL (80-100); Monocytes Absolute Auto 700 /uL (0-900); Monocytes Percent Auto 5.1 % (3-14); Neutrophils Absolute Auto 6000 /uL (1500-7000); Neutrophils Percent Auto 41.7 % (50-75); Platelet Count 180 X10^3/uL (150-400); Red Blood Cell Count 2.52 X10^6/uL (4.5-5.9); Red Cell Distribution Width 13.2 % (11.6-14.8); White Blood Cell Count 14.5 X10^3/uL (4.5-11.0)
[2018-12-02 06:31] LABS: BUN Creatinine Ratio 31.4 (6-22); Blood Urea Nitrogen 44 mg/dL (9-20); Calcium 8.5 mg/dL (8.4-10.2); Carbon Dioxide 16 mmol/L (22-32); Chloride 119 mmol/L (98-107); Estimated Glomerular Filt Rate 48.5 mL/min (>60); Glucose 86 mg/dL (80-110); HEMOLYSIS < 15 (0-50); Sodium 140 mmol/L (137-145)
[2018-12-02 06:50] LABS: Potassium 5.2 mmol/L (3.4-5.1)
[2018-12-02] MEDS: METOPROLOL ER 50 MG TABLET PO (08:27)
[2018-12-02] MEDS: CLOPIDOGREL 75 MG TABLET PO (08:27)
[2018-12-02] MEDS: ASPIRIN EC 81 MG TABLET PO (08:27)
--- NOTE | 2018-12-02 08:46 | P.PN_ITS ---
Subjective Date Patient Seen: 12/02/18 Time Patient Seen: 08:42 Interval history: Patient seen and evaluated sitting at the bedside eating breakfast. He says he feels a little bit better today. He has no complaints. Needing mild assistance when getting up. Had a long discussion about his kidneys. In kidney failure that was present on admission to the hospital. As well as his hyperkalemia which she has been struggling with lately. Reviewed through his medications. Discussed his radiation treatment for his lymphoma. Exam Vital Signs (past 8 hours): - 12/02/18 00:45 12/02/18 04:46 Temperature 98.2 F Pulse Rate 79 Respiratory Rate 18 Blood Pressure 125/65 Pulse Oximetry 100 99 Oxygen Delivery Method Room Air Oxygen Flow Rate 0 Narrative Exam Narrative: Gen.: Alert no apparent distress HEENT: Pupils equal round and reactive or mucosa is moist Cardio: S1-S2 regular rate and rhythm Respiratory: Lungs are clear to auscultation no wheezes or crackles normal respiratory effort. Abdomen: The ileostomy functioning fine Extremities: No significant edema Objective Labs Result Diagrams: 12/02/18 05:56 12/02/18 05:56 Labs: Laboratory Results - last 24 hr 12/02/18 12/02/18 05:56 05:56 WBC 14.5 H RBC 2.52 L Hgb 8.4 L Hct 25.2 L MCV 100.1 H MCH 33.5 MCHC 33.4 RDW 13.2 Plt Count 180 Neut % (Auto) 41.7 L Lymph % (Auto) 48.1 H [place] % (Auto) 5.1 Eos % (Auto) 4.7 H Baso % (Auto) 0.4 Neut # (Auto) 6000 Lymph # (Auto) 7000 H [place] # (Auto) 700 Eos # (Auto) 700 H Baso # (Auto) 100 Sodium 140 Potassium 5.2 H Chloride 119 H Carbon Dioxide 16 L BUN 44 H Creatinine 1.40 H Estimated GFR 48.5 L BUN/Creatinine Ratio 31.4 H Glucose 86 Calcium 8.5 Assessment & Plan Plan: Assessment/Plan Narrative: 1. Acute kidney injury patient's creatinine is now back to baseline. Will go ahead and decrease down his IV fluids and Hep-Lock them today as he is tolerating oral well. 2. Hyperkalemia. Potassium is improved. Although it is going back up. Discussed concerns with ongoing hyperkalemia despite his renal failure improving and getting lots of IV fluids were in a stop that. Discussed risk benefits of Kayexalate with him today. We agreed to give him a dose orally a small dose as a trial to see how he does. 3. Lymphoma patient getting radiation treatment. May be cause of hyperkalemia. 4. History coronary disease-continue metoprolol despite mild hypotension. Decreased down his metoprolol today. Also contributing to hyperkalemia. 5. GI nutrition. Eating well this morning. 6. Disposition plan. DC IV fluid. One dose of Kayexalate today. Ambulate. Recheck and re-evaluate kidney function labs off IV fluid tomorrow. Quality VTE Deep Vein Thrombosis/Pulmonary Embolism Present on Admission: No
[2018-12-02] MEDS: ENOXAPARIN 30 MG/0.3 ML SYRINGE SUBCUT (09:08)
[2018-12-02] MEDS: SODIUM POLYSTYRENE SULFON/SORB 15 GM/60 ML CUP PO (09:08)
--- NOTE | 2018-12-02 09:50 | PT.IPTN ---
Physical Therapy Treatment Note M2 PT-IP Current Condition Start: 12/01/18 10:37 Freq: NEEDED Status: Active Protocol: Document 12/01/18 10:00 HH (Rec: 12/01/18 10:57 [email or web address]) Physical Therapy Current Condition Current Condition Evaluation Date 12/01/18 Treatment Diagnosis Hyperkalemia, difficulty in walking and generalized muscle weakness Onset Date 11/30/18 Weight Bearing Status Weight Bearing Status Weight Bear as Tolerated M3 PT-IP Subjective Start: 12/01/18 10:37 Freq: NEEDED Status: Active Protocol: Document 12/02/18 09:50 AB (Rec: 12/02/18 12:31 AB [id number]) Subjective Physical Therapy Visit Type Visit Start Time 09:50 Visit Stop Time 10:00 Total Visit Minutes 10 Number of RETAIL TIRE SALES MANAGER Visits 0 Physical Therapy Visit Comments Patient Comments pt stated that her daughter will be coming in and will wak him around the hallway. stated that he thinks he does not need any PT. M4 PT-IP Mobility and Gait Start: 12/01/18 10:37 Freq: NEEDED Status: Active Protocol: Document 12/02/18 09:50 AB (Rec: 12/02/18 12:31 AB [id number]) PT-Bed Mobility Assessment Supine to Sit Supine to Sit Independent Sit to Supine Sit to Supine Independent Scooting Scooting to Edge of Bed Independent PT-Transfer Assessment Sit to and From Stand Sit to and from Stand Independent Equipment Transfer Assistive Device None Gait Belt Gait Assessment Gait Gait Assistance Required: Standby Assistance Distance (Feet) 30 Able to Maintain Weight Bearing Status Yes During Gait Assistive Devices Assistive Device None Gait Belt Orthotic/Prosthetic Devices or Brace: No Gait Deviations General Gait Pattern Antalgic Decreased Stride Length Decreased Feet Clearance Factors Limiting Gait Function Factors Limiting Gait Function Decreased Activity Tolerance Decreased Strength Comments Gait Comments assessed ambulation without AD and pt completed ~ 30 ft SBA. pt without LOB. Functional Assessments Functional Tests Tinetti Balance and Gait Assessment / which relates to low fall risk M5 PT-IP Objective Assessments Start: 12/01/18 10:37 Freq: NEEDED Status: Active Protocol: Document 12/01/18 10:00 HH (Rec: 12/01/18 10:57 [email or web address]) Orientation Orientation/Cognition Level of Alertness Alert Orientation Name Age Birthday Month Date Year Day of Week Place Situation Language Function Ability No Deficits Noted Safety Awareness Understands Safety Issues Memory Description No Deficits Noted Gross Range of Motion Upper Extremity ROM Assessment Within Functional Limits Lower Extremity ROM Assessment Within Functional Limits Strength Upper Extremity Strength Assessment Within Functional Limits Lower Extremity Strength Assessment Within Functional Limits Comments Strength Comments BLE grossly 4/5 Coordination Assessment Gross Coordination Gross Coordination WNL Sensation Assessment Sensation Gross Sensation WNL Muscle Tone Muscle Tone WNL Yes M6 PT-IP Treatment Start: 12/01/18 10:37 Freq: NEEDED Status: Active Protocol: Document 12/02/18 09:50 AB (Rec: 12/02/18 12:31 AB [id number]) Physical Therapy Treatment Education Education Provided Safety M7 PT-IP Assessment and Plan Start: 12/01/18 10:37 Freq: NEEDED Status: Active Protocol: Document 12/02/18 09:50 AB (Rec: 12/02/18 12:31 AB [id number]) PT Summary Assessment and Plan Potential Rehabilitation Potential Good Summary Impairments Pain Strength Balance Bed Mobility Transfers Gait Activity Tolerance Progress Towards Goals Progressing Toward Goals Assessment Summary pt doing well with mobility and stated that he does not need PT. pt with score of 27/ 28 on tinetti assessment which relates to low fall risk. pt able to ambulate without AD SBA for safety. educated pt regarding using his hiking poles when he feels weak and agreed. instructed pt to ask nursing to ambulate more with him and agreed. No further PT intervention indicated at this time. d/c PT. Goals Bed Mobility Goal Independent Transfer Goal Independent Gait Goal Independent Cane Gait Distance 200 Other Goals with or without AD Days to Meet Goals 5 Frequency of Treatment Frequency Of Treatment Discharge Treatment Plan Physical Therapy Treatment Plan Bed Mobility Training Transfer Training Gait Training Therapeutic Exercise Balance Retraining Discharge Planning Other Recommendations and Next Treatment supine to sit Focus transfer and gait training with or without AD as maranda Recommendations To Nursing Amount of Assist Needed Standby Assistance Discharge Recommendations PT Discharge Recommendations Home with Assistance
--- NOTE | 2018-12-02 10:38 | PC.NURSE ---
Addendum entered by Breann Woodruff R.N. 12/02/18 12:26: GI - pt not very hungry lunch, eating fruit and cottage cheese, declines any tylenol or norco at this time, would prefer to wait until hs to help sleep, given boost at bedside, pt has emptied liq, thin light brown/yellow stool from ileostomy. Original Note: AM NOTE - pt awakens easily, up to dangle position for breakfast, states slept better last night and able to maranda some gen diet this am, denies nausea now and declines any pain medication at this time, including tylenol, ra 96%, hr 84, bs clear, dim, Dr. Abdul in this am and given dose kayexalate this am, discussed needs for ileostomy and pt has bag and supplies from home.
[2018-12-02] MEDS: HYDROCODONE/ACET 5/325 TABLET 1 TAB PO (20:11)
[2018-12-03 05:30] VITALS: BP 131/79; PULSE 93; RESP 16; TEMP 36.9; O2SAT 98
[2018-12-03 06:14] LABS: Add Manual Diff / Slide Review NO; Basophils Absolute Auto 100 /uL (0-100); Basophils Percent Auto 0.4 % (0-2); Eosinophils Absolute Auto 800 /uL (0-450); Eosinophils Percent Auto 5.1 % (2-4); Hematocrit 28.4 % (41-53); Hemoglobin 9.4 g/dL (13.5-17.5); Lymphocytes Absolute Auto 9200 /uL (1100-4500); Lymphocytes Percent Auto 57.4 % (25-40); Mean Corpuscular HGB Conc 33.1 % (30-36); Mean Corpuscular Hemoglobin 33.2 PG (26-34); Mean Corpuscular Volume 100.3 fL (80-100); Monocytes Absolute Auto 700 /uL (0-900); Monocytes Percent Auto 4.6 % (3-14); Neutrophils Absolute Auto 5200 /uL (1500-7000); Neutrophils Percent Auto 32.5 % (50-75); Platelet Count 200 X10^3/uL (150-400); Red Blood Cell Count 2.83 X10^6/uL (4.5-5.9); Red Cell Distribution Width 13.5 % (11.6-14.8); White Blood Cell Count 16.1 X10^3/uL (4.5-11.0)
[2018-12-03 06:31] LABS: BUN Creatinine Ratio 21.5 (6-22); Blood Urea Nitrogen 28 mg/dL (9-20); Calcium 9.2 mg/dL (8.4-10.2); Carbon Dioxide 18 mmol/L (22-32); Chloride 115 mmol/L (98-107); Estimated Glomerular Filt Rate 52.9 mL/min (>60); Glucose 92 mg/dL (80-110); HEMOLYSIS < 15 (0-50); Potassium 4.6 mmol/L (3.4-5.1); Sodium 142 mmol/L (137-145)
[2018-12-03 08:13] VITALS: BP 135/64; PULSE 92; RESP 17; TEMP 37.1; O2SAT 98
[2018-12-03] MEDS: ASPIRIN EC 81 MG TABLET PO (08:30)
[2018-12-03] MEDS: CLOPIDOGREL 75 MG TABLET PO (08:30)
[2018-12-03] MEDS: ENOXAPARIN 30 MG/0.3 ML SYRINGE SUBCUT (08:30)
[2018-12-03] MEDS: METOPROLOL ER 25 MG TABLET PO (08:30)
--- NOTE | 2018-12-03 09:15 | PM.PN.1 ---
Subjective Date Patient Seen: 12/03/18 Exam Vital Signs (past 8 hours): - 12/03/18 05:30 12/03/18 08:13 Temperature 98.4 F 98.7 F Pulse Rate 93 H 92 H Respiratory Rate 16 17 Blood Pressure 131/79 135/64 Pulse Oximetry 98 98 Oxygen Delivery Method Room Air Oxygen Flow Rate 0 Objective Labs Result Diagrams: 12/03/18 05:50 12/03/18 05:50 Labs: Laboratory Results - last 24 hr 12/03/18 12/03/18 05:50 05:50 WBC 16.1 H RBC 2.83 L Hgb 9.4 L Hct 28.4 L MCV 100.3 H MCH 33.2 MCHC 33.1 RDW 13.5 Plt Count 200 Neut % (Auto) 32.5 L Lymph % (Auto) 57.4 H [place] % (Auto) 4.6 Eos % (Auto) 5.1 H Baso % (Auto) 0.4 Neut # (Auto) 5200 Lymph # (Auto) 9200 H [place] # (Auto) 700 Eos # (Auto) 800 H Baso # (Auto) 100 Sodium 142 Potassium 4.6 Chloride 115 H Carbon Dioxide 18 L BUN 28 H Creatinine 1.30 H Estimated GFR 52.9 L BUN/Creatinine Ratio 21.5 Glucose 92 Calcium 9.2 Quality VTE Deep Vein Thrombosis/Pulmonary Embolism Present on Admission: No
--- NOTE | 2018-12-03 09:29 | P.DS_ITS ---
History of Present Illness Chief complaint: POTASSIUM IS HIGH Discharge Providers Date of admission: 11/30/18 18:35 Primary care physician: Nicko Diaz MD Consults: 11/30/18 20:17 Consult to Dietitian, Adult Routine Comment: Reason For Exam: failure to thrive r/t radiation 11/30/18 20:23 Consult to Physical Therapy Evaluate & Treat Comment: Physician Instructions: Evaluate and Treat 12/01/18 08:17 Consult to Ostomy Specialist Routine Comment: Consulting Provider: Discharge provider: Wilbur Abdul MD Discharge Date: 12/03/18 Summary Discharge Diagnosis: Acute kidney injury due to dehydration Hyperkalemia due to acute kidney injury dehydration and lymphoma Lymphoma currently undergoing radiation GERD Hyperlipidemia Coronary artery disease Hospital Course: Patient was admitted to the hospital for acute renal failure and hyperkalemia. Her in the emergency department patient received IV fluids had treatment for his hyperkalemia he was admitted to the hospital for further evaluation and management. Over the ensuing 24 hr with IV fluid high duration. Improvement of his kidneys and use of SPS. Patient has a potassium returned back to normal as well as his kidney function. The time of discharge was eating tolerating his diet. He doing well. He was discharged home with recheck of his potassium in 3 days and a prescription for SP S2 take at home if needed for elevated potassium. She is encouraged to stay away from potassium containing products. His stay working with hydration. And monitor closely his electrolytes a past an outpatient with blood testing. Exam Vital Signs (past 8 hours): - 12/03/18 05:30 12/03/18 08:13 Temperature 98.4 F 98.7 F Pulse Rate 93 H 92 H Respiratory Rate 16 17 Blood Pressure 131/79 135/64 Pulse Oximetry 98 98 Oxygen Delivery Method Room Air Oxygen Flow Rate 0 Narrative Exam Narrative: Gen.: Alert and oriented x3 no apparent distress. HEENT: NCAT PERRLA tympanic membranes are clear nares are patent oral mucosa is moist no tonsillar hypertrophy neck is supple without lymphadenopathy no thyroid enlargement. Cardio: S1-S2 regular rate and rhythm no murmurs appreciated. Respiratory: Lungs are clear to auscultation no wheezes or crackles normal respiratory effort. Abdomen: Soft nontender no rebound or guarding no liver spleen enlargement no appreciable hernias Extremities: Full range of motion no appreciable weakness no cyanosis or edema. Neurologic: Grossly intact. Objective Labs Result Diagrams: 12/03/18 05:50 12/03/18 05:50 Labs: Laboratory Results - last 24 hr 12/03/18 12/03/18 05:50 05:50 WBC 16.1 H RBC 2.83 L Hgb 9.4 L Hct 28.4 L MCV 100.3 H MCH 33.2 MCHC 33.1 RDW 13.5 Plt Count 200 Neut % (Auto) 32.5 L Lymph % (Auto) 57.4 H [place] % (Auto) 4.6 Eos % (Auto) 5.1 H Baso % (Auto) 0.4 Neut # (Auto) 5200 Lymph # (Auto) 9200 H [place] # (Auto) 700 Eos # (Auto) 800 H Baso # (Auto) 100 Sodium 142 Potassium 4.6 Chloride 115 H Carbon Dioxide 18 L BUN 28 H Creatinine 1.30 H Estimated GFR 52.9 L BUN/Creatinine Ratio 21.5 Glucose 92 Calcium 9.2 Discharge Plan Discharge Plan Discharge Problem: Acute hyperkalemia, Acute kidney injury Patient Disposition: Home Discharge comment: Follow up with Emily 7-10 days. Recheck potassium and kidney function on Tuesday. Prescription for SPS was sent over to [facility] in [place] Discharge Med Rec/Prescriptions Prescriptions: New sodium polystyrene sulfon-sorb [SPS (with sorbitol)] 15-20 gram/60 mL suspension 60 ml PO DAILY PRN (Reason: hyperkalemia) Qty: 473 RF: 0 Continue clopidogrel [Plavix] 75 mg tablet 75 mg PO DAILY RF: 0 metoprolol succinate 50 MG tablet extended release 24 hr 50 mg PO DAILY RF: 0 simvastatin 40 MG tablet 80 mg PO BEDTIME RF: 0 aspirin 81 mg Tablet,Delayed Release (Dr/Ec) 81 mg PO DAILY RF: 0 Discharge Data Primary Care Provider: Nicko Diaz Attending Provider: Nicko Diaz Admit Date/Time: 11/30/18 18:35 Quality VTE Deep Vein Thrombosis/Pulmonary Embolism Present on Admission: No
--- NOTE | 2018-12-03 09:54 | PC.NURSE ---
Addendum entered by Sam Reeves R.N. 12/03/18 13:16: Pt awaiting daughter. Pt instructions given to Pt and Daughter, IV d/c'd intact, tele removed and Pt wheeled to Private car by Pham HORNER. Original Note: Pt alert and oriented easily make needs known. Expects to d/c today and is wondering when Dr. Abdul will be in. Pt maranda activity and takes care of ileostomy himself. Dr Abdul in orders for d/c written Pt caling to see if he can get a ride home.
[2018-12-03 10:56] VITALS: O2SAT 98
--- NOTE | 2018-12-03 12:27 | CM.DPC ---
DCP Cont: Met with patient briefly, at bedside. Patient is to be discharged home today. Had patient sign IMM form. He stated, he was glad that he would be going home. Patient will be following up with his primary doctor. Will also continue with care at [facility]. P: Patient is to be discharged home today. Frida Romero RN/Web Site Designer
== END 2018-12-03 11:15 | disposition home or self-care (01) | DRG 682 ==
LOC: ED 18:20 → AC 18:36
PROVIDERS: Admitting Provider Family Medicine; Emergency Provider Emergency Medicine; PCP Internal Medicine; Visit Provider Internal Medicine
DX: N17.9 Acute kidney failure, unspecified (principal); E43 Unspecified severe protein-calorie malnutrition; C83.13 Mantle cell lymphoma, intra-abdominal lymph nodes; E87.5 Hyperkalemia; I25.10 Atherosclerotic heart disease of native coronary artery without angina pectoris; I73.9 Peripheral vascular disease, unspecified; E78.2 Mixed hyperlipidemia; Z43.2 Encounter for attention to ileostomy; I95.9 Hypotension, unspecified; E86.0 Dehydration; K21.9 Gastro-esophageal reflux disease without esophagitis; Z68.23 Body mass index [BMI] 23.0-23.9, adult
CPT/HCPCS: 36415; 36591; 74022; 80048; 80053; 81001; 83690; 83735; 84100; 85025; 93005; 96361; 96374; 96375; 97162; 97530; 99222; 99232; 99238; 99283; 99285; J1200; J1650; J1940; J2405

== ENCOUNTER → 2018-12-06 14:01 | Outpatient (CLI) | payer OTHER, SELFPAY ==
[2018-11-30 19:22] VITALS: BMI 23.1
[2018-12-06 14:56] LABS: Hematocrit 29.6 % (41-53); Hemoglobin 9.8 g/dL (13.5-17.5); Platelet Count 222 X10^3/uL (150-400); Red Blood Cell Count 2.95 X10^6/uL (4.5-5.9); Red Cell Distribution Width 13.2 % (11.6-14.8); White Blood Cell Count 21.3 X10^3/uL (4.5-11.0)
[2018-12-06 14:57] LABS: Add Manual Diff / Slide Review YES
[2018-12-06 15:01] LABS: BUN Creatinine Ratio 20.6 (6-22); Blood Urea Nitrogen 37 mg/dL (9-20); Calcium 9.6 mg/dL (8.4-10.2); Carbon Dioxide 19 mmol/L (22-32); Chloride 112 mmol/L (98-107); Estimated Glomerular Filt Rate 36.3 mL/min (>60); Glucose 108 mg/dL (80-110); HEMOLYSIS < 15 (0-50); Sodium 140 mmol/L (137-145)
[2018-12-06 15:06] LABS: Potassium 5.6 mmol/L (3.4-5.1)
[2018-12-06 15:18] LABS: Neutrophils Absolute Manual 6603 /uL (3000-5900); Nucleated Red Blood Cells 1 #/Diff; Total Cells Counted 100
[2018-12-06 15:19] LABS: Macrocytosis 1+
== END ==
PROVIDERS: PCP Internal Medicine; Visit Provider Internal Medicine
DX: C83.10 Mantle cell lymphoma, unspecified site (principal); N17.9 Acute kidney failure, unspecified
CPT/HCPCS: 36415; 80048; 85025

== ENCOUNTER → 2018-12-13 14:01 | Outpatient (CLI) | payer OTHER, SELFPAY ==
[2018-11-30 19:22] VITALS: BMI 23.1
[2018-12-13 14:41] LABS: BUN Creatinine Ratio 20.4 (6-22); Blood Urea Nitrogen 49 mg/dL (9-20); Calcium 9.9 mg/dL (8.4-10.2); Carbon Dioxide 17 mmol/L (22-32); Chloride 108 mmol/L (98-107); Glucose 108 mg/dL (80-110); HEMOLYSIS < 15 (0-50); Potassium 5.7 mmol/L (3.4-5.1); Sodium 139 mmol/L (137-145)
== END ==
PROVIDERS: PCP Internal Medicine; Visit Provider Internal Medicine
DX: E87.5 Hyperkalemia (principal); N17.9 Acute kidney failure, unspecified
CPT/HCPCS: 36415; 80048

== ENCOUNTER → 2018-12-20 15:27 | Outpatient (CLI) | payer OTHER, SELFPAY ==
[2018-11-30 19:22] VITALS: BMI 23.1
[2018-12-20 18:04] LABS: BUN Creatinine Ratio 28.8 (6-22); Blood Urea Nitrogen 49 mg/dL (9-20); Calcium 9.8 mg/dL (8.4-10.2); Carbon Dioxide 19 mmol/L (22-32); Chloride 108 mmol/L (98-107); Estimated Glomerular Filt Rate 38.8 mL/min (>60); Glucose 98 mg/dL (80-110); HEMOLYSIS < 15 (0-50); Sodium 138 mmol/L (137-145)
[2018-12-20 18:05] LABS: Potassium 6.1 mmol/L (3.4-5.1)
== END ==
PROVIDERS: PCP Internal Medicine; Visit Provider Internal Medicine
DX: N17.9 Acute kidney failure, unspecified (principal)
CPT/HCPCS: 36415; 80048

== ENCOUNTER 2018-12-24 12:26 | Inpatient (IN) | payer OTHER, SELFPAY ==
[2018-12-24 12:43] VITALS: BP 130/64; PULSE 105; RESP 18; TEMP 36.5; O2SAT 99; BMI 23.1
--- NOTE | 2018-12-24 13:10 | ED.NAVMDI ---
HPI - Nausea/Vomiting/Diarrhea General Chief complaint: Nausea/Vomiting/Diarrhea Stated complaint: VOMITING Time Seen by Provider: 12/24/18 12:55 Source: patient, family and old records reviewed Limitations: no limitations History of Present Illness HPI Narrative: patient is an 83-year-old male who finished radiation and chemotherapy for lymphoma. He also has recurrent history of dehydration and hyperkalemia. He has been vomiting for the last 2 days at least 3 times this morning and twice yesterday. His overall extremely weak and fatigued. family states that he is definitely more confused today than he has been. No fever. The he complains of burning in his abdomen. His but no abdominal pain. He has an ostomy from ulcerative colitis years ago he has had the same amount of ostomy output. He denies any abdominal pain. MD complaint: nausea and vomiting Location of pain: diffuse Related Data Home Medications Medication Instructions Recorded Confirmed clopidogrel 75 mg tablet 75 mg PO DAILY 08/10/18 12/24/18 aspirin 81 mg PO DAILY 11/30/18 12/24/18 metoprolol succinate 50 mg PO DAILY 11/30/18 12/24/18 simvastatin 80 mg PO BEDTIME 11/30/18 12/24/18 Previous Rx's Medication Instructions Recorded diphenoxylate-atropine 2.5 1 tab PO Q6H PRN #60 tab 12/07/18 mg-0.025 mg tablet Allergies Allergy/AdvReac Type Severity Reaction Status Date / Time No Known Drug Allergies Allergy Verified 12/21/18 11:38 Review of Systems Review of Systems ROS Unobtainable: All systems reviewed & are unremarkable except as noted in HPI and below Constitutional Denies chills, Denies fever(s), Reports lethargy, Reports malaise, Reports poor appetite and Denies weakness Eyes Denies change in vision, Denies eye discharge, Denies irritation and Denies loss of vision ENT Ears, Nose, Mouth, and Throat: Denies change in voice, Denies neck pain and Denies sore throat Cardiovascular Denies chest pain, Denies irregular heart rhythm, Denies lightheadedness, Denies palpitations, Denies dyspnea, Denies dyspnea on exertion and Denies orthopnea Respiratory Denies cough, Denies dyspnea, Denies dyspnea on exertion and Denies wheezing Gastrointestinal Gastrointestinal: Denies abdominal pain, Denies change in bowel habits, Denies diarrhea, Reports nausea and Denies vomiting Musculoskeletal Denies neck pain Integumentary/Breasts Denies pruritus, Denies erythema, Denies rash and Denies wounds Neurologic Denies loss of vision and Denies weakness Endocrine Denies palpitations Allergic/Immunologic Denies wheezing [facility] Medical History Coronary artery disease (Chronic ~04/2016) Peripheral vascular disease (Chronic) 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) GERD (gastroesophageal reflux disease) (Chronic) Mixed hyperlipidemia (Chronic 06/23/11) Elevated prostate specific antigen (PSA) (Chronic 06/23/11) Ileostomy present (Inactive 01/21/14) Status post insertion of drug-eluting stent into right coronary artery for coronary artery disease (Inactive 05/06/16) Hematuria (Resolved) Ulcerative colitis (Resolved) Surgical History Status post colectomy (~1969) Status post transurethral resection of prostate Social History household members: friend(s) Smoking Status: Former smoker alcohol intake: current Social History household members: friend(s) Smoking Status: Former smoker alcohol intake: current Exam Initial Vital Signs Initial Vital Signs: Vital Signs Temperature 97.7 F 12/24/18 12:43 Pulse Rate 105 H 12/24/18 12:43 Respiratory Rate 18 12/24/18 12:43 Blood Pressure 130/64 12/24/18 12:43 Pulse Oximetry 99 12/24/18 12:43 GENERAL: weak frail elderly male no acute distress alert oriented HEENT: Head atraumatic,EOMI, pupils reactive, dry mucous membranes CARDIOVASCULAR: Regular rate and rhythm without murmurs, rubs or gallops. RESPIRATORY: Breath sounds equal bilaterally, no wheezes rales or rhonchi. ABDOMEN: Soft, nontender. ostomy noted right side with good output : No CVA tenderness EXTREMITIES: Normal range of motion, no clubbing or edema. Neurovascularly intact NEUROLOGICAL: Alert and oriented x4.Normal gait and speech. moving all extremities no deficits SKIN: Warm, dry, no laceration, no petechiae, no rashes or lesions. Course Orders Ordered: ED Orders 12/24/18 13:20 Complete Blood Count AUTO DIFF Stat Comprehensive Metabolic Panel Stat Lactate (Lactic Acid) Stat Lipase Stat 12/24/18 15:07 EKG-12 Lead Stat 12/24/18 16:04 Consult to Discharge Planning Routine Consult to Physician Routine Education, smoking cessation ONGOING 12/25/18 05:00 Basic Metabolic Panel Routine Acetaminophen (Tylenol) 650 mg PO Q6HR PRN PRN Reason: As Needed for Fever/Mild Pain Aspirin (Aspirin Ec) 81 mg PO DAILY [facility] Clopidogrel Bisulfate (Plavix) 75 mg PO DAILY [facility] Sodium Chloride (Normal Saline 0.9%) 1,000 mls @ 250 mls/hr IV CONT KEYANA Last Admin: 12/24/18 17:43 Dose: 250 mls/hr Lorazepam (Ativan) 1 mg IV Q4HR PRN PRN Reason: Anxiety Metoprolol Succinate (Toprol Xl) 50 mg PO DAILY [facility] Ondansetron HCl (Zofran) 4 mg IV Q8HR PRN PRN Reason: Nausea And Vomiting Oxycodone HCl (Percolone) 5 mg PO Q6HR PRN PRN Reason: Pain, Moderate (4-6) Pantoprazole Sodium (Protonix) 40 mg IV DAILY [facility] Discontinued Medications Dextrose (D50w) 25 gm IV NOW ONE Stop: 12/24/18 14:14 Last Admin: 12/24/18 14:37 Dose: 25 gm Furosemide (Lasix) 20 mg IV NOW ONE Stop: 12/24/18 14:14 Last Admin: 12/24/18 14:36 Dose: 20 mg Sodium Chloride (Normal Saline 0.9%) 1,000 mls @ 1,000 mls/hr IV CONT KEYANA Last Infusion: 12/24/18 14:46 Dose: 0 mls/hr Admin: 12/24/18 13:45 Dose: 1,000 mls/hr Sodium Chloride (Normal Saline 0.9%) 1,000 mls @ 1,000 mls/hr IV BOLUS ONE Stop: 12/24/18 15:12 Last Infusion: 12/24/18 16:09 Dose: 0 mls/hr Admin: 12/24/18 14:37 Dose: 1,000 mls/hr Insulin Human Regular (Humulin R) 10 unit IV NOW ONE Stop: 12/24/18 14:14 Last Admin: 12/24/18 14:36 Dose: 10 unit Pantoprazole Sodium (Protonix) 40 mg IV NOW ONE Stop: 12/24/18 13:09 Last Admin: 12/24/18 13:45 Dose: 40 mg Sodium Polystyrene Sulfonate (Kayexalate) 30 gm PO NOW ONE Stop: 12/24/18 14:14 Last Admin: 12/24/18 14:37 Dose: Not Given Vital Signs - 8 hr 12/24/18 12:43 12/24/18 14:00 12/24/18 16:07 Temperature 97.7 F Pulse Rate 105 H 95 H 102 H Respiratory Rate 18 25 H 19 Blood Pressure 130/64 119/75 Blood Pressure [Left Arm] 128/51 L Pulse Oximetry 99 100 97 12/24/18 16:55 Temperature 98.1 F Pulse Rate 104 H Respiratory Rate 18 Blood Pressure 127/56 L Blood Pressure [Left Arm] Pulse Oximetry 100 MDM - Nausea/Vomiting/Diarrhea Medical Records Attestation: I reviewed the patient's medical records. Lab Data Attestation: I reviewed the patient's lab results. Result diagrams: 12/24/18 13:20 12/24/18 13:20 Lab Results 12/24/18 12/24/18 12/24/18 Range/Units 13:20 13:20 13:20 WBC 28.7 H (4.5-11.0) X10^3/uL RBC 3.21 L (4.5-5.9) X10^6/uL Hgb 10.3 L (13.5-17.5) g/dL Hct 32.5 L (41-53) % MCV 101.2 H (80-100) fL MCH 32.1 (26-34) PG MCHC 31.7 (30-36) % RDW 13.6 (11.6-14.8) % Plt Count 256 (150-400) X10^3/uL Neut % (Auto) Not Reportable Lymph % (Auto) Not Reportable [place] % (Auto) Not Reportable Eos % (Auto) Not Reportable Baso % (Auto) Not Reportable Lymph # (Auto) Not Reportable [place] # (Auto) Not Reportable Baso # (Auto) Not Reportable Total Counted 100 Seg Neutrophils % 36.0 L (38-70) % Lymphocytes % (Manual) 42.0 (25-45) % Atypical Lymphs % 19.0 H ( - 0) % Eosinophils % (Manual) 3.0 (2-4) % Neutrophils # (Manual) 28538 H (5584-2519) /uL RBC Morphology Normal morphology Sodium 137 (137-145) mmol/L Potassium 6.6 H* (3.4-5.1) mmol/L Chloride 109 H (98-107) mmol/L Carbon Dioxide 16 L (22-32) mmol/L BUN 63 H (9-20) mg/dL Creatinine 2.30 H (0.66-1.25) mg/dL Estimated GFR 27.4 L (>60) mL/min BUN/Creatinine Ratio 27.4 H (6-22) Glucose 110 (80-110) mg/dL Lactate 1.0 (0.7-2.1) mmol/L Calcium 10.2 (8.4-10.2) mg/dL Total Bilirubin 0.3 (0.2-1.3) mg/dL AST 16 L (17-59) IU/L ALT 26 (21-72) IU/L Alkaline Phosphatase 105 (38-126) U/L Total Protein 7.4 (6.3-8.2) g/dL Albumin 4.3 (3.5-5.0) g/dL Globulin 3.1 (1.7-4.1) g/dL Albumin/Globulin Ratio 1.4 (1.0-2.8) Lipase 223 (23-300) U/L ECG Data Attestation: I personally reviewed and interpreted this ECG as follows: Prior ECG tracings: available for review Interpretation: sinus rhythm rate 103 no peaked T-waves MI interval [address] changes or T-wave inversions MDM Narrative Medical decision making narrative: patient overall seems to be discouraged about his recurrent episodes of hyperkalemia. He chose to no longer be treated for the lymphoma. He has certainly gotten weaker over the past few weeks. Discussion with patient and daughter about goals of care. Mentioned in discussed hospice. Daughter does not sound quite ready for that. Patient is unsure. He talked about imaging with both patient and daughter. Daughter worried about a blockage. However at this time he has good ostomy output his abdomen is soft nondistended he is not actually vomiting in the ED. At this time I do not think it is indicated. they are agreeable for no further imaging. Patient tired of imaging he has had PET scans and CT scan she does not want any more. I discussed case with Dr. Diaz who accepts patient for inpatient. I have updated him on my discussions with family as well. Patient also refused Kayexalate. He has had it many times he does not want this time. He says his intestine is already inflamed due to the and he feels like that makes it worse. Discharge Plan Departure Patient Disposition: Admitted As Inpatient Clinical Impression: Acute dehydration, Acute hyperkalemia Discharge Date/Time: 12/24/18 15:30 Interventions: ED Discharge Assessment Last Done: 12/24/18 16:07 Admit Date/Time: 12/24/18 14:49 Admit Provider: Nicko Diaz
--- NOTE | 2018-12-24 13:15 | ED_ITS ---
HPI - Nausea/Vomiting/Diarrhea General Chief complaint: Nausea/Vomiting/Diarrhea Stated complaint: VOMITING Time Seen by Provider: 12/24/18 12:55 Source: patient, family and old records reviewed Limitations: no limitations History of Present Illness HPI Narrative: patient is an 83-year-old male who finished radiation and chemotherapy for lymphoma. He also has recurrent history of dehydration and hyperkalemia. He has been vomiting for the last 2 days at least 3 times this morning and twice yesterday. His overall extremely weak and fatigued. family states that he is definitely more confused today than he has been. No fever. The he complains of burning in his abdomen. His but no abdominal pain. He has an ostomy from ulcerative colitis years ago he has had the same amount of ostomy output. He denies any abdominal pain. MD complaint: nausea and vomiting Location of pain: diffuse Related Data Home Medications Medication Instructions Recorded Confirmed clopidogrel 75 mg tablet 75 mg PO DAILY 08/10/18 12/24/18 aspirin 81 mg PO DAILY 11/30/18 12/24/18 metoprolol succinate 50 mg PO DAILY 11/30/18 12/24/18 simvastatin 80 mg PO BEDTIME 11/30/18 12/24/18 Previous Rx's Medication Instructions Recorded diphenoxylate-atropine 2.5 1 tab PO Q6H PRN #60 tab 12/07/18 mg-0.025 mg tablet Allergies Allergy/AdvReac Type Severity Reaction Status Date / Time No Known Drug Allergies Allergy Verified 12/21/18 11:38 Review of Systems Review of Systems ROS Unobtainable: All systems reviewed & are unremarkable except as noted in HPI and below Constitutional Denies chills, Denies fever(s), Reports lethargy, Reports malaise, Reports poor appetite and Denies weakness Eyes Denies change in vision, Denies eye discharge, Denies irritation and Denies loss of vision ENT Ears, Nose, Mouth, and Throat: Denies change in voice, Denies neck pain and Denies sore throat Cardiovascular Denies chest pain, Denies irregular heart rhythm, Denies lightheadedness, Denies palpitations, Denies dyspnea, Denies dyspnea on exertion and Denies orthopnea Respiratory Denies cough, Denies dyspnea, Denies dyspnea on exertion and Denies wheezing Gastrointestinal Gastrointestinal: Denies abdominal pain, Denies change in bowel habits, Denies diarrhea, Reports nausea and Denies vomiting Musculoskeletal Denies neck pain Integumentary/Breasts Denies pruritus, Denies erythema, Denies rash and Denies wounds Neurologic Denies loss of vision and Denies weakness Endocrine Denies palpitations Allergic/Immunologic Denies wheezing [facility] Medical History Coronary artery disease (Chronic ~04/2016) Peripheral vascular disease (Chronic) 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) GERD (gastroesophageal reflux disease) (Chronic) Mixed hyperlipidemia (Chronic 06/23/11) Elevated prostate specific antigen (PSA) (Chronic 06/23/11) Ileostomy present (Inactive 01/21/14) Status post insertion of drug-eluting stent into right coronary artery for coronary artery disease (Inactive 05/06/16) Hematuria (Resolved) Ulcerative colitis (Resolved) Surgical History Status post colectomy (~1969) Status post transurethral resection of prostate Social History household members: friend(s) Smoking Status: Former smoker alcohol intake: current Social History household members: friend(s) Smoking Status: Former smoker alcohol intake: current Exam Initial Vital Signs Initial Vital Signs: Vital Signs Temperature 97.7 F 12/24/18 12:43 Pulse Rate 105 H 12/24/18 12:43 Respiratory Rate 18 12/24/18 12:43 Blood Pressure 130/64 12/24/18 12:43 Pulse Oximetry 99 12/24/18 12:43 GENERAL: weak frail elderly male no acute distress alert oriented HEENT: Head atraumatic,EOMI, pupils reactive, dry mucous membranes CARDIOVASCULAR: Regular rate and rhythm without murmurs, rubs or gallops. RESPIRATORY: Breath sounds equal bilaterally, no wheezes rales or rhonchi. ABDOMEN: Soft, nontender. ostomy noted right side with good output : No CVA tenderness EXTREMITIES: Normal range of motion, no clubbing or edema. Neurovascularly intact NEUROLOGICAL: Alert and oriented x4.Normal gait and speech. moving all extremities no deficits SKIN: Warm, dry, no laceration, no petechiae, no rashes or lesions. Course Orders Ordered: ED Orders 12/24/18 13:20 Complete Blood Count AUTO DIFF Stat Comprehensive Metabolic Panel Stat Lactate (Lactic Acid) Stat Lipase Stat 12/24/18 15:07 EKG-12 Lead Stat 12/24/18 16:04 Consult to Discharge Planning Routine Consult to Physician Routine Education, smoking cessation ONGOING 12/25/18 05:00 Basic Metabolic Panel Routine Acetaminophen (Tylenol) 650 mg PO Q6HR PRN PRN Reason: As Needed for Fever/Mild Pain Aspirin (Aspirin Ec) 81 mg PO DAILY [facility] Clopidogrel Bisulfate (Plavix) 75 mg PO DAILY [facility] Sodium Chloride (Normal Saline 0.9%) 1,000 mls @ 250 mls/hr IV CONT KEYANA Last Admin: 12/24/18 17:43 Dose: 250 mls/hr Lorazepam (Ativan) 1 mg IV Q4HR PRN PRN Reason: Anxiety Metoprolol Succinate (Toprol Xl) 50 mg PO DAILY [facility] Ondansetron HCl (Zofran) 4 mg IV Q8HR PRN PRN Reason: Nausea And Vomiting Oxycodone HCl (Percolone) 5 mg PO Q6HR PRN PRN Reason: Pain, Moderate (4-6) Pantoprazole Sodium (Protonix) 40 mg IV DAILY [facility] Discontinued Medications Dextrose (D50w) 25 gm IV NOW ONE Stop: 12/24/18 14:14 Last Admin: 12/24/18 14:37 Dose: 25 gm Furosemide (Lasix) 20 mg IV NOW ONE Stop: 12/24/18 14:14 Last Admin: 12/24/18 14:36 Dose: 20 mg Sodium Chloride (Normal Saline 0.9%) 1,000 mls @ 1,000 mls/hr IV CONT KEYANA Last Infusion: 12/24/18 14:46 Dose: 0 mls/hr Admin: 12/24/18 13:45 Dose: 1,000 mls/hr Sodium Chloride (Normal Saline 0.9%) 1,000 mls @ 1,000 mls/hr IV BOLUS ONE Stop: 12/24/18 15:12 Last Infusion: 12/24/18 16:09 Dose: 0 mls/hr Admin: 12/24/18 14:37 Dose: 1,000 mls/hr Insulin Human Regular (Humulin R) 10 unit IV NOW ONE Stop: 12/24/18 14:14 Last Admin: 12/24/18 14:36 Dose: 10 unit Pantoprazole Sodium (Protonix) 40 mg IV NOW ONE Stop: 12/24/18 13:09 Last Admin: 12/24/18 13:45 Dose: 40 mg Sodium Polystyrene Sulfonate (Kayexalate) 30 gm PO NOW ONE Stop: 12/24/18 14:14 Last Admin: 12/24/18 14:37 Dose: Not Given Vital Signs - 8 hr 12/24/18 12:43 12/24/18 14:00 12/24/18 16:07 Temperature 97.7 F Pulse Rate 105 H 95 H 102 H Respiratory Rate 18 25 H 19 Blood Pressure 130/64 119/75 Blood Pressure [Left Arm] 128/51 L Pulse Oximetry 99 100 97 12/24/18 16:55 Temperature 98.1 F Pulse Rate 104 H Respiratory Rate 18 Blood Pressure 127/56 L Blood Pressure [Left Arm] Pulse Oximetry 100 MDM - Nausea/Vomiting/Diarrhea Medical Records Attestation: I reviewed the patient's medical records. Lab Data Attestation: I reviewed the patient's lab results. Result diagrams: 12/24/18 13:20 12/24/18 13:20 Lab Results 12/24/18 12/24/18 12/24/18 Range/Units 13:20 13:20 13:20 WBC 28.7 H (4.5-11.0) X10^3/uL RBC 3.21 L (4.5-5.9) X10^6/uL Hgb 10.3 L (13.5-17.5) g/dL Hct 32.5 L (41-53) % MCV 101.2 H (80-100) fL MCH 32.1 (26-34) PG MCHC 31.7 (30-36) % RDW 13.6 (11.6-14.8) % Plt Count 256 (150-400) X10^3/uL Neut % (Auto) Not Reportable Lymph % (Auto) Not Reportable [place] % (Auto) Not Reportable Eos % (Auto) Not Reportable Baso % (Auto) Not Reportable Lymph # (Auto) Not Reportable [place] # (Auto) Not Reportable Baso # (Auto) Not Reportable Total Counted 100 Seg Neutrophils % 36.0 L (38-70) % Lymphocytes % (Manual) 42.0 (25-45) % Atypical Lymphs % 19.0 H ( - 0) % Eosinophils % (Manual) 3.0 (2-4) % Neutrophils # (Manual) 78885 H (2271-2491) /uL RBC Morphology Normal morphology Sodium 137 (137-145) mmol/L Potassium 6.6 H* (3.4-5.1) mmol/L Chloride 109 H (98-107) mmol/L Carbon Dioxide 16 L (22-32) mmol/L BUN 63 H (9-20) mg/dL Creatinine 2.30 H (0.66-1.25) mg/dL Estimated GFR 27.4 L (>60) mL/min BUN/Creatinine Ratio 27.4 H (6-22) Glucose 110 (80-110) mg/dL Lactate 1.0 (0.7-2.1) mmol/L Calcium 10.2 (8.4-10.2) mg/dL Total Bilirubin 0.3 (0.2-1.3) mg/dL AST 16 L (17-59) IU/L ALT 26 (21-72) IU/L Alkaline Phosphatase 105 (38-126) U/L Total Protein 7.4 (6.3-8.2) g/dL Albumin 4.3 (3.5-5.0) g/dL Globulin 3.1 (1.7-4.1) g/dL Albumin/Globulin Ratio 1.4 (1.0-2.8) Lipase 223 (23-300) U/L ECG Data Attestation: I personally reviewed and interpreted this ECG as follows: Prior ECG tracings: available for review Interpretation: sinus rhythm rate 103 no peaked T-waves CO interval [address] changes or T-wave inversions MDM Narrative Medical decision making narrative: patient overall seems to be discouraged about his recurrent episodes of hyperkalemia. He chose to no longer be treated for the lymphoma. He has certainly gotten weaker over the past few weeks. Discussion with patient and daughter about goals of care. Mentioned in discussed hospice. Daughter does not sound quite ready for that. Patient is unsure. He talked about imaging with both patient and daughter. Daughter worried about a blockage. However at this time he has good ostomy output his abdomen is soft nondistended he is not actually vomiting in the ED. At this time I do not think it is indicated. they are agreeable for no further imaging. Patient tired of imaging he has had PET scans and CT scan she does not want any more. I discussed case with Dr. Diaz who accepts patient for inpatient. I have updated him on my discussions with family as well. Patient also refused Kayexalate. He has had it many times he does not want this time. He says his intestine is already inflamed due to the and he feels like that makes it worse. Discharge Plan Departure Patient Disposition: Admitted As Inpatient Clinical Impression: Acute dehydration, Acute hyperkalemia Discharge Date/Time: 12/24/18 15:30 Interventions: ED Discharge Assessment Last Done: 12/24/18 16:07 Admit Date/Time: 12/24/18 14:49 Admit Provider: Nicko Diaz
[2018-12-24 13:38] LABS: Hematocrit 32.5 % (41-53); Hemoglobin 10.3 g/dL (13.5-17.5); Mean Corpuscular HGB Conc 31.7 % (30-36); Mean Corpuscular Hemoglobin 32.1 PG (26-34); Mean Corpuscular Volume 101.2 fL (80-100); Platelet Count 256 X10^3/uL (150-400); Red Blood Cell Count 3.21 X10^6/uL (4.5-5.9); Red Cell Distribution Width 13.6 % (11.6-14.8); White Blood Cell Count 28.7 X10^3/uL (4.5-11.0)
[2018-12-24 13:39] LABS: Add Manual Diff / Slide Review YES
[2018-12-24 13:45] LABS: Alanine Aminotransferase 26 IU/L (21-72); Albumin 4.3 g/dL (3.5-5.0); Albumin Globulin Ratio 1.4 (1.0-2.8); Alkaline Phosphatase 105 U/L (38-126); Aspartate Aminotransferase 16 IU/L (17-59); BUN Creatinine Ratio 27.4 (6-22); Bilirubin Total 0.3 mg/dL (0.2-1.3); Blood Urea Nitrogen 63 mg/dL (9-20); Calcium 10.2 mg/dL (8.4-10.2); Carbon Dioxide 16 mmol/L (22-32); Chloride 109 mmol/L (98-107); Estimated Glomerular Filt Rate 27.4 mL/min (>60); Globulin 3.1 g/dL (1.7-4.1); Glucose 110 mg/dL (80-110); HEMOLYSIS < 15 (0-50); Lipase 223 U/L (23-300); Sodium 137 mmol/L (137-145); Total Protein 7.4 g/dL (6.3-8.2)
[2018-12-24] MEDS: SODIUM CHLORIDE 0.9% 1,000 ML 1000 ML IV ×2 (13:45→14:37)
[2018-12-24] MEDS: PANTOPRAZOLE 40 MG VIAL IV (13:45)
[2018-12-24 14:00] VITALS: BP 128/51; PULSE 95; RESP 25; O2SAT 100
[2018-12-24 14:02] LABS: Potassium 6.6 mmol/L (3.4-5.1)
[2018-12-24 14:31] LABS: Neutrophils Absolute Manual 10332 /uL (3000-5900); RBC Morphology Normal Morphology; Total Cells Counted 100
[2018-12-24] MEDS: INSULIN REGULAR 100 UNIT/ML 3 ML VIAL 10 UNIT IV (14:36)
[2018-12-24] MEDS: FUROSEMIDE 20 MG/2 ML VIAL IV (14:36)
[2018-12-24] MEDS: DEXTROSE 50 % IN WATER 25 GM/50 ML SYRINGE IV (14:37)
--- NOTE | 2018-12-24 15:20 | RT ---
Respiratory Therapy noted, found order for this ekg @ 1500 order was sent @ 14:16 but no idea or calls that it was needed, i was upstairs giving neb tx's unaware of this order, but was done right away when found.
[2018-12-24 16:07] VITALS: BP 119/75; PULSE 102; RESP 19; O2SAT 97
[2018-12-24 16:08] VITALS: BMI 23.1
[2018-12-24 16:55] VITALS: BP 127/56; PULSE 104; RESP 18; TEMP 36.7; O2SAT 100
--- NOTE | 2018-12-24 17:05 | PC.ADMIT ---
[id number] Admission Note: The patient,Jake Hall,83 y/o, was given written information regarding hospital policies, unit procedures and contact persons. Patient's smoking status: Former smoker. Vital Signs - 8 hr 12/24/18 12:43 12/24/18 14:00 12/24/18 16:07 Temperature 97.7 F Pulse Rate 105 H 95 H 102 H Respiratory Rate 18 25 H 19 Blood Pressure 130/64 119/75 Blood Pressure [Left Arm] 128/51 L Pulse Oximetry 99 100 97 12/24/18 16:55 Temperature 98.1 F Pulse Rate 104 H Respiratory Rate 18 Blood Pressure 127/56 L Blood Pressure [Left Arm] Pulse Oximetry 100 Patient brought to floor via stretcher from ED, weakness and vomiting. The patient was admitted here 2 weeks ago for the same problem. He has just finished 14 treatments of radiation for his diagnosis of lymphoma and completed chemotherapy two years ago. There seems to be some disconnect between the patient and his daughter about continuation of treatment for his disease. Patient states he also has a kidney malfunction. Patient was very stable when transferring from stretcher to bathroom and back to bed but he was asked to let us assist him when he needs to go to the bathroom. He was given clear iquids as ordered.
[2018-12-24] MEDS: SODIUM CHLORIDE 0.9% 1,000 ML 250 ML IV (17:43)
[2018-12-24 20:04] VITALS: BP 93/51; PULSE 107; RESP 17; TEMP 36.8
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
[2018-12-24] MEDS: OXYCODONE IR 5 MG TABLET PO (21:54)
[2018-12-25] VITALS (12 sets, daily range): BP systolic 104–129; BP diastolic 48–65; PULSE 72–89; RESP 16–19; TEMP 36.4–37; O2SAT 93–99
[2018-12-25] MEDS: SODIUM CHLORIDE 0.9% 1,000 ML 250 ML IV ×2 (02:06→06:43)
[2018-12-25 05:45] LABS: BUN Creatinine Ratio 26.7 (6-22); Blood Urea Nitrogen 48 mg/dL (9-20); Calcium 8.6 mg/dL (8.4-10.2); Carbon Dioxide 17 mmol/L (22-32); Chloride 117 mmol/L (98-107); Estimated Glomerular Filt Rate 36.3 mL/min (>60); Glucose 87 mg/dL (80-110); HEMOLYSIS < 15 (0-50); Sodium 141 mmol/L (137-145)
[2018-12-25 05:48] LABS: Potassium 5.8 mmol/L (3.4-5.1)
--- NOTE | 2018-12-25 07:00 | DI.RAD.S_ITS ---
PROCEDURE: XR ABDOMEN MIN 2V INDICATIONS: abd pain TECHNIQUE: 2 views of the abdomen were acquired. COMPARISON: [facility], , ABDOMEN 2 VIEW, 12/01/2017, 16:46. FINDINGS: Surgical changes and devices: Surgical clips are projected over the right mid abdomen, pelvis, and the left iliac. Bowel: No pneumoperitoneum. The bowel gas pattern is normal. Soft tissues: No masses; visualized solid organ contours appear normal in size. No suspicious abdominal calcifications. Bones: No suspicious bony abnormalities. IMPRESSION: No acute intra-abdominal findings. Dictated by: Adelita Dennis M.D. on 12/25/2018 at 9:39 Approved by: Adelita Dennis M.D. on 12/25/2018 at 9:40
--- NOTE | 2018-12-25 07:15 | PM.PN.1 ---
Subjective Date Patient Seen: 12/25/18 Time Patient Seen: 07:15 Interval history: Patient about the same No more emesis Had very little away liquids last night. Will see how he does with breakfast Exam Vital Signs (past 8 hours): - 12/25/18 00:20 12/25/18 01:39 12/25/18 05:00 Temperature 97.7 F 97.9 F Pulse Rate 85 88 Respiratory Rate 16 16 Blood Pressure 115/58 L 129/62 Pulse Oximetry 95 95 99 Oxygen Delivery Method Room Air Oxygen Flow Rate 0 Narrative Exam Narrative: Unchanged from previous Objective Imaging Abdominal x-ray: My impression: Two views of the abdomen did not show evidence of infection with scattered and somewhat less than expected air within the small bowel, basically unremarkable Labs Result Diagrams: 12/24/18 13:20 12/25/18 04:53 Labs: Laboratory Results - last 24 hr 12/24/18 12/24/18 12/24/18 13:20 13:20 13:20 WBC 28.7 H RBC 3.21 L Hgb 10.3 L Hct 32.5 L MCV 101.2 H MCH 32.1 MCHC 31.7 RDW 13.6 Plt Count 256 Neut % (Auto) Not Reportable Lymph % (Auto) Not Reportable [place] % (Auto) Not Reportable Eos % (Auto) Not Reportable Baso % (Auto) Not Reportable Lymph # (Auto) Not Reportable [place] # (Auto) Not Reportable Baso # (Auto) Not Reportable Total Counted 100 Seg Neutrophils % 36.0 L Lymphocytes % (Manual) 42.0 Atypical Lymphs % 19.0 H Eosinophils % (Manual) 3.0 Neutrophils # (Manual) 54449 H RBC Morphology Normal morphology Sodium 137 Potassium 6.6 H* Chloride 109 H Carbon Dioxide 16 L BUN 63 H Creatinine 2.30 H Estimated GFR 27.4 L BUN/Creatinine Ratio 27.4 H Glucose 110 Lactate 1.0 Calcium 10.2 Total Bilirubin 0.3 AST 16 L ALT 26 Alkaline Phosphatase 105 Total Protein 7.4 Albumin 4.3 Globulin 3.1 Albumin/Globulin Ratio 1.4 Lipase 223 12/25/18 04:53 WBC RBC Hgb Hct MCV MCH MCHC RDW Plt Count Neut % (Auto) Lymph % (Auto) [place] % (Auto) Eos % (Auto) Baso % (Auto) Lymph # (Auto) [place] # (Auto) Baso # (Auto) Total Counted Seg Neutrophils % Lymphocytes % (Manual) Atypical Lymphs % Eosinophils % (Manual) Neutrophils # (Manual) RBC Morphology Sodium 141 Potassium 5.8 H Chloride 117 H Carbon Dioxide 17 L BUN 48 H Creatinine 1.80 H Estimated GFR 36.3 L BUN/Creatinine Ratio 26.7 H Glucose 87 Lactate Calcium 8.6 Total Bilirubin AST ALT Alkaline Phosphatase Total Protein Albumin Globulin Albumin/Globulin Ratio Lipase Assessment & Plan Assessment & Plan narrative: 1. Prerenal azotemia/acute kidney injury-improving. Looked lytes improved. Continue with IV fluids at reduced rate with 2. GI-still waiting stool studies. Continue to be supportive, consider initiating Lomotil after stool studies have returned negative 3. Lymphoma-will have patient's oncologist, Dr. Hicks, see patient when next here in [place], either today or tomorrow, will call Oncology and determine when that will be Note: Greater than 30 minutes was spent evaluating the patient on the floor, including examining the patient, discussing clinical course with clinical and nursing staff, reviewing clinical course in the computer, preparing documentation and writing orders for continued management of care, discussing status with family as appropriate, reviewing plans for the next 24 hours with both patient/family and nursing staff as appropriate. Quality VTE Deep Vein Thrombosis/Pulmonary Embolism Present on Admission: No
--- NOTE | 2018-12-25 08:46 | CM.DANOTE ---
DCP: Case received, EMR reviewed and met with patient. Introduced self and role. DCP template completed with information currently available. Patient is an 83 year old male who admitted yesterday afternoon to the care of the hospitalist team. PCP: Dr. Diaz. Payer: confirmed: [facility]. Patient came to hospital due to symptoms of vomiting. Patient has history of mantle cell lymphoma, and has an ileostomy. Patient has declined to have further treatments at oncology, but has not indicated wanting any hospice services as of yet. He lives in [facility] with his friend. Patient holds diagnosis of Pre-renal Azotemia, as well as Acute Kidney Injury with Hyperkalemia. Patient stated that he is independent at home. Patient also has a daughter, Sherine, that also resides in [facility]. P: DCP to continue to follow closely as plan unfolds. Will see how patient progresses here in hospital, and will be available for any resources that patient may need before discharge. Frida Romero RN
[2018-12-25] MEDS: ASPIRIN EC 81 MG TABLET PO (09:56)
[2018-12-25] MEDS: CLOPIDOGREL 75 MG TABLET PO (09:56)
[2018-12-25] MEDS: METOPROLOL ER 50 MG TABLET PO (09:59)
[2018-12-25] MEDS: PANTOPRAZOLE 40 MG VIAL IV (09:59)
[2018-12-25] MEDS: SODIUM CHLORIDE 0.9% 1,000 ML 150 ML IV ×2 (12:39→19:22)
[2018-12-25] MEDS: ONDANSETRON 4 MG/2 ML INJ IV (12:44)
[2018-12-25] MEDS: LORazepam 2 MG/ML SYRINGE 1 MG IV (12:49)
--- NOTE | 2018-12-25 13:29 | PC.NURSE ---
AM Shift Pt is A/o x4, general c/o malaise. Overall disgruntled. Doesn't want to be in hospital. Feels he is getting a bandaid, then goes home and starts to feel poorly again. Allowed time to discuss frustrations, Pt doesn't wish to have PRN meds, but has numerous c/o of discomfort, loose stools, nausea. IVF reduced per order. Stool obtained for testing. Loose/watery. 1300-Pt agreeable to ativan, poor PO intake with both meals. Zofran also given.
[2018-12-25 14:50] LABS: Adenovirus F 40/41 Not Detected (Not Detect); Astrovirus Not Detected (Not Detect); Campylobacter Not Detected (Not Detect); Clostridium difficile toxin AB Detected (Not Detect); Cryptosporidium Not Detected (Not Detect); Cyclospora cayetanensis Not Detected (Not Detect); Entamoeba histolytica Not Detected (Not Detect); Enteroaggregative E.coli Not Detected (Not Detect); Enteropathogenic E.coli Not Detected (Not Detect); Enterotoxigenic E.coli It/st Not Detected (Not Detect); Giardia lamblia Not Detected (Not Detect); Norovirus GI/GII Not Detected (Not Detect); Plesiomonsa shigelloides Not Detected (Not Detect); Rotavirus A Not Detected (Not Detect); Salmonella Not Detected (Not Detect); Sapovirus Not Detected (Not Detect); Shiga-like toxin-prod E.coli Not Detected (Not Detect); Shigella/Enteroinvasive E.coli Not Detected (Not Detect); Vibrio Not Detected (Not Detect); Vibrio cholerae Not Detected (Not Detect); Yersinia enterocolitica Not Detected (Not Detect)
--- NOTE | 2018-12-25 14:51 | PC.NURSE ---
Lab notified this RN of CDiff +. Isolation cart out, will call to Dr Diaz.
--- NOTE | 2018-12-25 15:29 | CM.DPC ---
DCP Cont: Called daughter, Sherine Higginbotham to reach out to her. She stated that she is on her way here, for she knows that the oncologist is supposed to come and see patient today. Asked her how he was doing at home, she said: horrible, and mentioned that he continues to be in and out of the hospital with dehydration. Asked her if patient is staying with friends, and she mentioned that he is staying with aunt. Let her know, that this nurse case management's extension and name is on white board in his room, if she needs to discuss discharge planning. She stated she is frustrated, because of all the different doctors he is seeing, and he continues to be sick. Is noted that patient now has C-Diff. P: DCP to continue to follow closely. Will see what oncology has to say. Anticipate that patient will be here for a couple of days. Daughter has already expressed that they are not yet ready for Hospice. Will assess case as plan unfolds. Frida Romero RN/[employer]
[2018-12-25] MEDS: VANCOMYCIN 125 MG CAPSULE PO ×2 (16:47→21:04)
--- NOTE | 2018-12-25 21:27 | PC.NURSE ---
evening shift note. Pt has been lying in bed most of the shift. up a couple of times to use the bathroom. Pt with ileostomy and empties it himself. At the beginning of the shift patient was A&O, but a little agitated d/t him not being is regular independent self. Towards the end of the shift pt seemed a little confused asking the same questions that he did earlier. Pt is now on c-diff precautions. Pt also stating he just wants to pack up his stuff and go home. I explained to him that its best to stay here through the night and then talk with his doctor in the morning.
--- NOTE | 2018-12-25 23:20 | P.PNONC_ITS ---
PN -Subjective Interval history: 83 year old male with low grade mantle cell lymphoma diagnosed with biopsy of mass at posterior hard palate in 04/2010, status post bendamustine and Rituxan followed by 4 cycles of maintenance Rituxan discontinued in 09/2012 due to instability of gait which has since resolved. Recurrence of mantle cell lymphoma confirmed by an ileostomy sidewall biopsy of an irritative growth on 03/02/2016, status post bendamustine/Rituxan completed December 2016. In early 2017, he noted continued slow growing of the ileostomy mass, biopsy of which in 01/20/2018 confirmed recurrence of mantle cell lymphoma. PET/CT on 10/04/2018 showed increased metabolic activity in the biopsy confirmed mass at the anterior abdominal wall/ileostomy stoma site. I have talked with him multiple times about medical palliative therapy (venetoclax, ibrutinib), however, patient has been very reluctant. Eventually, he agreed and underwent palliative radiation therapy from 11/07/2018 to with delays and interruption. He said that the mass at the ileostomy site has shrunked dramatically Per patient, he developed diarrhea since starting radiation therapy and loss of appetite. He was hospitalized early this month due to acute pre-renal failure and hyperkalemia. He was admitted yesterday (12/24/2018) because of vomiting. He was found to have C-diff infection and currently is receiving oral vancomycin therapy. Home Medications and Allergies Home Medications Medication Instructions Recorded Confirmed Type clopidogrel 75 mg tablet 75 mg PO DAILY 08/10/18 12/24/18 History aspirin 81 mg PO DAILY 11/30/18 12/24/18 History metoprolol succinate 50 mg PO DAILY 11/30/18 12/24/18 History simvastatin 80 mg PO BEDTIME 11/30/18 12/24/18 History diphenoxylate-atropine 2.5 1 tab PO Q6H PRN #60 tab 12/07/18 12/24/18 Rx mg-0.025 mg tablet Allergies Allergy/AdvReac Type Severity Reaction Status Date / Time No Known Drug Allergies Allergy Verified 12/21/18 11:38 Exam Vital signs: Vital Signs Temp Pulse Resp BP Pulse Ox 12/25/18 21:54 98.6 F 12/25/18 21:00 74 19 104/48 L 93 12/25/18 17:30 95 12/25/18 16:23 98.4 F 72 17 105/52 L 98 12/25/18 12:28 98.0 F 73 16 118/60 98 12/25/18 08:50 97 12/25/18 08:00 97.5 F L 89 16 127/65 98 12/25/18 05:00 97.9 F 88 16 129/62 99 12/25/18 01:39 95 12/25/18 00:20 97.7 F 85 16 115/58 L 95 Intake and Output 12/25/18 12/25/18 12/25/18 07:59 15:59 23:59 Intake Total 1120 / 4240 1000 / 2000 1000 / 2000 Output Total 1075 / 2025 750 / 750 Balance 45 / 2215 1000 / 1250 250 / 1250 Intake: IV 1000 / 4000 1000 / 2000 1000 / 2000 Sodium Chloride 0.9% 1,000 ml @ 1000 / 1999 1000 / 2000 1000 / 2000 150 mls/hr IV CONT KEYANA Rx#: [id number] Oral 120 / 240 Output: Urine 850 / 1700 750 / 750 Wound Drainage 225 / 225 Right Medial Abdomen 225 / 225 Other: Percent Meal Consumed 0% Stool Size Moderate # Bowel Movements 1 Weight 69.9 kg Narrative: Gen: weak, NAD, cooperative, Heent: EOMI, PERLLA, anicteric Neck: no lymph nodes enlargement Lungs: CTA Heart: RRR, S1 and S2 normal, no MRG Abd: soft, mild tender, ilestomy noted, and previous mass not palpable Ext: no pitting edema Neuro: AOx3, nonfocal Results - Labs Laboratory Last Values WBC 28.7 X10^3/uL (4.5-11.0) H 12/24/18 13:20 RBC 3.21 X10^6/uL (4.5-5.9) L 12/24/18 13:20 Hgb 10.3 g/dL (13.5-17.5) L 12/24/18 13:20 Hct 32.5 % (41-53) L 12/24/18 13:20 MCV 101.2 fL (80-100) H 12/24/18 13:20 MCH 32.1 PG (26-34) 12/24/18 13:20 MCHC 31.7 % (30-36) 12/24/18 13:20 RDW 13.6 % (11.6-14.8) 12/24/18 13:20 Plt Count 256 X10^3/uL (150-400) 12/24/18 13:20 Neut % (Auto) Not Reportable 12/24/18 13:20 Lymph % (Auto) Not Reportable 12/24/18 13:20 Steele % (Auto) Not Reportable 12/24/18 13:20 Eos % (Auto) Not Reportable 12/24/18 13:20 Baso % (Auto) Not Reportable 12/24/18 13:20 Lymph # (Auto) Not Reportable 12/24/18 13:20 Steele # (Auto) Not Reportable 12/24/18 13:20 Baso # (Auto) Not Reportable 12/24/18 13:20 Total Counted 100 12/24/18 13:20 Seg Neutrophils % 36.0 % (38-70) L 12/24/18 13:20 Lymphocytes % (Manual) 42.0 % (25-45) 12/24/18 13:20 Atypical Lymphs % 19.0 % (-0) H 12/24/18 13:20 Eosinophils % (Manual) 3.0 % (2-4) 12/24/18 13:20 Neutrophils # (Manual) 99863 /uL (9606-6937) H 12/24/18 13:20 RBC Morphology Normal morphology 12/24/18 13:20 Sodium 141 mmol/L (137-145) 12/25/18 04:53 Potassium 5.8 mmol/L (3.4-5.1) H 12/25/18 04:53 Chloride 117 mmol/L (98-107) H 12/25/18 04:53 Carbon Dioxide 17 mmol/L (22-32) L 12/25/18 04:53 BUN 48 mg/dL (9-20) H 12/25/18 04:53 Creatinine 1.80 mg/dL (0.66-1.25) H 12/25/18 04:53 Estimated GFR 36.3 mL/min (>60) L 12/25/18 04:53 BUN/Creatinine Ratio 26.7 (6-22) H 12/25/18 04:53 Glucose 87 mg/dL (80-110) 12/25/18 04:53 Lactate 1.0 mmol/L (0.7-2.1) 12/24/18 13:20 Calcium 8.6 mg/dL (8.4-10.2) 12/25/18 04:53 Total Bilirubin 0.3 mg/dL (0.2-1.3) 12/24/18 13:20 AST 16 IU/L (17-59) L 12/24/18 13:20 ALT 26 IU/L (21-72) 12/24/18 13:20 Alkaline Phosphatase 105 U/L (38-126) 12/24/18 13:20 Total Protein 7.4 g/dL (6.3-8.2) 12/24/18 13:20 Albumin 4.3 g/dL (3.5-5.0) 12/24/18 13:20 Globulin 3.1 g/dL (1.7-4.1) 12/24/18 13:20 Albumin/Globulin Ratio 1.4 (1.0-2.8) 12/24/18 13:20 Lipase 223 U/L (23-300) 12/24/18 13:20 Stl C. cayetanensis PCR Not detected (Not Detect) 12/25/18 12:00 Stool Rotavirus (PCR) Not detected (Not Detect) 12/25/18 12:00 Stool Adenovirus (PCR) Not detected (Not Detect) 12/25/18 12:00 Stool Astrovirus (PCR) Not detected (Not Detect) 12/25/18 12:00 Stool Cryptosporidium PCR Not detected (Not Detect) 12/25/18 12:00 Stl E.coli Shiga Tox PCR Not detected (Not Detect) 12/25/18 12:00 St Sh/Enteroin Ecoli PCR Not detected (Not Detect) 12/25/18 12:00 Stool E coli O157 PCR Not Reportable 12/25/18 12:00 Stl Enterotoxigenic E PCR Not detected (Not Detect) 12/25/18 12:00 Stool EPEC (PCR) Not detected (Not Detect) 12/25/18 12:00 Stl E. histolytica PCR Not detected (Not Detect) 12/25/18 12:00 Stool Giardia Lamblia PCR Not detected (Not Detect) 12/25/18 12:00 Stool Sapovirus (PCR) Not detected (Not Detect) 12/25/18 12:00 Stl P. shigelloides PCR Not detected (Not Detect) 12/25/18 12:00 St Y.enterocolitica PCR Not detected (Not Detect) 12/25/18 12:00 Stool Vibrio (PCR) Not detected (Not Detect) 12/25/18 12:00 Stl Vibrio cholerae PCR Not detected (Not Detect) 12/25/18 12:00 Stl Enteroaggr Ecoli PCR Not detected (Not Detect) 12/25/18 12:00 Stl Norovirus GI/GII PCR Not detected (Not Detect) 12/25/18 12:00 Campylobacter (PCR) Not detected (Not Detect) 12/25/18 12:00 C. difficile Tox (PCR) Detected (Not Detect) H 12/25/18 12:00 Salmonella (PCR) Not detected (Not Detect) 12/25/18 12:00 - Imaging Additional studies: Procedures Injection or infusion of other therapeutic or prophylactic substance (02/08/14) Assessment and Plan (1) Mantle cell lymphoma Onset Date: 06/25/11 Problem details: Low grade mantle cell lymphoma dianosed after biopsy of mass at posterior hard palate in 04/2010, status post bendamustine and Rituxan followed by 4 cycles of maintenance Rituxan discontinued in 09/2012 due to instability of gait which has since resolved. Recurrence of mantle cell lymphoma confirmed by an ileostomy sidewall biopsy of an irritative growth on 03/02/2016, status post bendamustine/Rituxan completed December 2016. Now with continued slow growing of the ileostomy mass, biopsy of which in 01/20/2018 confirmed recurrence of mantle cell lymphoma. I have talked with him multiple times about medical palliative therapy (venetoclax, ibrutinib), however, patient has been very reluctant. Eventually, he agreed and underwent palliative radiation therapy from 11/07/2018 to with delays and interruption. He said that the mass at the ileostomy site has shrunked dramatically Assessment and Plan: Today I talked with him again about the therapy for his recurrent mantle cell lymphoma. At present, his principle problem has been C- diff infection, dehydration, hyperkalemia and kidney failure. With rehydation and oral vancomycin, hopefully, he will make progression and his symptoms will improve. As for his mantle cell lymphoma, he seems leaning towards giving up any future therapy and let the disease run its natural course. He said he has been fighting this disease for the past 10 years. He has been surprised by the side effects of the recent radiation therapy. I talked with him that the newly appr mirna therapy (venetoclax and/or ibrutinib) is not traditionally chemotherapy and they are small molecule tyrosine kinase inhibitor. They are better tolerated. I talked with him that after his current C-diff infection is treated, we can continue talk about how to treatment his mantle cell. Patient voiced understanding.
[2018-12-26] MEDS: SODIUM CHLORIDE 0.9% 1,000 ML 150 ML IV (02:10)
[2018-12-26 04:28] VITALS: BP 116/62; PULSE 91; RESP 16; TEMP 36.7; O2SAT 99
[2018-12-26 05:33] LABS: BUN Creatinine Ratio 23.1 (6-22); Blood Urea Nitrogen 30 mg/dL (9-20); Calcium 8.3 mg/dL (8.4-10.2); Carbon Dioxide 17 mmol/L (22-32); Chloride 119 mmol/L (98-107); Estimated Glomerular Filt Rate 52.9 mL/min (>60); Glucose 89 mg/dL (80-110); HEMOLYSIS < 15 (0-50); Potassium 4.8 mmol/L (3.4-5.1); Sodium 143 mmol/L (137-145)
--- NOTE | 2018-12-26 07:58 | P.PN_ITS ---
Subjective Date Patient Seen: 12/26/18 Time Patient Seen: 07:53 Interval history: Patient feels better. He sure it is because of the IV fluids. Was diagnosed with C diff infection which is likely the culprit with his GI disturbance. This is a recurrent infection for him. Also met with oncology yesterday (appreciate input from Dr. Hicks). Feels like he gets the message that all he has to do is signed up for treatment and he will be cured. He is pretty convinced that is not going to happen and pretty convinced he has already beat the odds and outlived his expectancy has expressed to him several years ago when he 1st had diagnosis with his lymphoma Is seriously considering hospice care at some point. Recognizes though that may be why he is feeling so physically poorly might be due to the issues with the GI tract that we can indeed resolve by treating the C diff infection. Exam Vital Signs (past 8 hours): - 12/26/18 04:28 Temperature 98.0 F Pulse Rate 91 H Respiratory Rate 16 Blood Pressure 116/62 Pulse Oximetry 99 Oxygen Delivery Method Room Air Oxygen Flow Rate 0 Objective Labs Result Diagrams: 12/24/18 13:20 12/26/18 04:43 Labs: Laboratory Results - last 24 hr 12/25/18 12/26/18 12:00 04:43 Sodium 143 Potassium 4.8 Chloride 119 H Carbon Dioxide 17 L BUN 30 H Creatinine 1.30 H Estimated GFR 52.9 L BUN/Creatinine Ratio 23.1 H Glucose 89 Calcium 8.3 L Stl C. cayetanensis PCR Not detected Stool Rotavirus (PCR) Not detected Stool Adenovirus (PCR) Not detected Stool Astrovirus (PCR) Not detected Stool Cryptosporidium PCR Not detected Stl E.coli Shiga Tox PCR Not detected St Sh/Enteroin Ecoli PCR Not detected Stool E coli O157 PCR Not Reportable Stl Enterotoxigenic E PCR Not detected Stool EPEC (PCR) Not detected Stl E. histolytica PCR Not detected Stool Giardia Lamblia PCR Not detected Stool Sapovirus (PCR) Not detected Stl P. shigelloides PCR Not detected St Y.enterocolitica PCR Not detected Stool Vibrio (PCR) Not detected Stl Vibrio cholerae PCR Not detected Stl Enteroaggr Ecoli PCR Not detected Stl Norovirus GI/GII PCR Not detected Campylobacter (PCR) Not detected C. difficile Tox (PCR) Detected H Salmonella (PCR) Not detected Assessment & Plan Assessment & Plan narrative: 1. Acute kidney injury-now resolved. Numbers are at baseline. Will cut back on IV fluids and check 1 last time before presume discharged tomorrow 2. GI-patient with C diff. Started on oral vancomycin. Hopefully we can eradicate the C diff and he will feel much much better than make decisions about long-term goals 3. Lymphoma-I agree thoughts of caring his lymphoma are extremely small. However I do think he could obtain an extended benefit at minimal cost with treatments. I think he definitely needs to feel better and get over his GI illness and have some stability before making long-term decisions. Overall patient is certainly improved from a kidney standpoint and hopefully GI symptoms are much better. Re-feed him today to be sure he can take oral intake without difficulty before probable discharge tomorrow Note: Greater than 30 minutes was spent evaluating the patient on the floor, including examining the patient, discussing clinical course with clinical and nursing staff, reviewing clinical course in the computer, preparing d ocumentation and writing orders for continued management of care, discussing status with family as appropriate, reviewing plans for the next 24 hours with both patient/family and nursing staff as appropriate. Quality VTE Deep Vein Thrombosis/Pulmonary Embolism Present on Admission: No
[2018-12-26 08:24] VITALS: BP 123/62; PULSE 86; RESP 16; TEMP 36.7; O2SAT 97
[2018-12-26] MEDS: CLOPIDOGREL 75 MG TABLET PO (08:56)
[2018-12-26] MEDS: VANCOMYCIN 125 MG CAPSULE PO ×4 (08:56→22:07)
[2018-12-26] MEDS: METOPROLOL ER 50 MG TABLET PO (08:56)
[2018-12-26] MEDS: ASPIRIN EC 81 MG TABLET PO (08:56)
[2018-12-26] MEDS: PANTOPRAZOLE 40 MG VIAL IV (08:58)
[2018-12-26] MEDS: SODIUM CHLORIDE 0.9% 1,000 ML 100 ML IV ×2 (08:59→15:13)
[2018-12-26] MEDS: SODIUM CHLORIDE 0.9% FLUSH 10 ML IV (09:01)
[2018-12-26 09:20] VITALS: O2SAT 97
[2018-12-26 12:00] VITALS: BP 112/47; PULSE 74; RESP 16; TEMP 36.2; O2SAT 99
--- NOTE | 2018-12-26 14:13 | CM.DPC ---
DCP Cont: Patient had seen oncologist yesterday, Dr. Hicks. He discussed with patient other types of treatment for his Lymphoma, other than chemo, secondary to the side effects that he has been having. At this time, he is being treated with Vancomycin for his C-Diff. He may be following up with his oncologist for further treatments. P: DCP to continue to follow. Patient could potentially be discharged home tomorrow, if he is medically stable. Frida Romero RN/Professor/Nurse Anesthetist
[2018-12-26 16:15] VITALS: BP 99/51; PULSE 69; RESP 18; TEMP 36.6; O2SAT 96; O2SAT 97
[2018-12-26 19:40] VITALS: BP 112/56; PULSE 80; RESP 19; TEMP 36.6; O2SAT 98
--- NOTE | 2018-12-26 21:43 | PC.NURSE ---
Evening shift note-Pt has been resting in bed most of the shift. Up couple of times to bathroom with SBA, soft loose stool noted in ileostomy, which pt empties himself. Pt denies any pain. Has been A&O, calm and cooperative.
[2018-12-27] VITALS: BP 120/59; PULSE 85; RESP 16; TEMP 36.8; O2SAT 96
[2018-12-27] MEDS: SODIUM CHLORIDE 0.9% 1,000 ML 100 ML IV (02:25)
[2018-12-27 04:00] VITALS: BP 132/62; PULSE 82; RESP 18; TEMP 36.7; O2SAT 98
[2018-12-27 05:47] LABS: BUN Creatinine Ratio 15.8 (6-22); Blood Urea Nitrogen 19 mg/dL (9-20); Calcium 8.2 mg/dL (8.4-10.2); Carbon Dioxide 17 mmol/L (22-32); Chloride 119 mmol/L (98-107); Glucose 88 mg/dL (80-110); HEMOLYSIS < 15 (0-50); Hemoglobin 7.5 g/dL (13.5-17.5); Mean Corpuscular HGB Conc 31.8 % (30-36); Mean Corpuscular Hemoglobin 32.3 PG (26-34); Mean Corpuscular Volume 101.6 fL (80-100); Platelet Count 181 X10^3/uL (150-400); Potassium 4.5 mmol/L (3.4-5.1); Red Blood Cell Count 2.31 X10^6/uL (4.5-5.9); Red Cell Distribution Width 13.6 % (11.6-14.8); Sodium 142 mmol/L (137-145); White Blood Cell Count 22.5 X10^3/uL (4.5-11.0)
[2018-12-27 06:12] LABS: Add Manual Diff / Slide Review YES; Hematocrit 23.5 % (41-53)
[2018-12-27 06:42] LABS: Neutrophils Absolute Manual 5175 /uL (3000-5900); Total Cells Counted 100
[2018-12-27 06:43] LABS: Macrocytosis 1+
[2018-12-27 08:00] VITALS: BP 132/81; PULSE 88; RESP 16; TEMP 36.6; O2SAT 98
--- NOTE | 2018-12-27 08:05 | P.DS_ITS ---
History of Present Illness Chief complaint: VOMITING Narrative: Patient presented to the [facility] Emergency Department on the 24 of December with complaints of vomiting. He had vomiting for about 2 days prior to admission and several times the morning on day of admission. He really is unable to keep much of anything down. He says it feels like something suddenly changed and his GI complaints are much worse than they were when I saw him last just several days ago He feels extremely tired weak and fatigued Family members with him report that he seems more out of it than usual Patient with known mantle cell lymphoma status post a course of radiation therapy directed at a mass in his ileostomy. Patient developed severe diarrhea or least increased ileostomy output with this radiation and it was discontinued. He has had no systemic therapy for his recurrent lymphoma at this point deferring more to the localized radiation therapy He has persisted with severe difficulty maintaining hydration with increased ileostomy output. He has been hospitalized with elevated creatinine and BUN and required significant IV fluids as an outpatient as well. At this point patient is ready to seriously consider no further treatment of any sort, he is pretty much done with hospitals, IV starts, hospitalizations, etc. Patient has expressed wishes to not proceed with any further therapy or treatment for his lymphoma, but on the other hand is not yet ready or has not expressed interest in hospice or palliative care of any sort. Discharge Providers Date of admission: 12/24/18 14:49 Primary care physician: Nicko Diaz MD Consults: 12/24/18 16:04 Consult to Discharge Planning Routine Comment: Hospice? Consult to Physician Routine Comment: Consulting Provider: Abdiel Hicks Reason for consultation: treatment options Has provider been notified: Yes Discharge provider: Nicko Diaz MD Discharge Date: 12/27/18 Summary Discharge Diagnosis: 1. Acute kidney injury due to prerenal azotemia, resolved 2. Hyperkalemia due to acute kidney injury, resolved 3. Clostridium difficile enteritis, causing diarrhea resulting in problems 1. And 2 above, under treatment 4. Mantle cell lymphoma 5. 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 Coronary artery disease, not active this admission 7. Peripheral vascular disease with right carotid occlusion, not active this admission Hospital Course: Patient was admitted because of weakness and dehydration. His renal function had deteriorated and he had electrolyte abnormalities. He was vigorously rehydrated with IV fluids and his renal function improved significantly in fact normalized. Electrolytes normalized as well. Patient also admitted with significant GI symptoms of nausea and vomiting. He persisted with high output from his ileostomy. He was cultured and found to have C diff enteritis which is felt to be the etiology for his high output state which was resulting in his inability to keep up and relative volume depletion and dehydration. He was treated with oral vancomycin and prior to discharge noticed the beginnings of normalization of his stool. His GI symptoms were much improved he was able to eat and drink normally without significant discomfort Patient was also seen in consultation by Oncology regarding his active lymphoma. Options for systemic treatment were presented. Patient this point is uncertain as to whether not he wants to engage in any further treatment for his lymphoma. That is in part due to his overall feelings of ill health which are likely secondary to his presenting symptoms and reason for admission. Once these things have resolved he may feel differently about treatment of his lymphoma and we will focus on referral back to Oncology if appropriate at a later date Patient also had quite the leukocytosis upon admission thought to be secondary to his infectious etiology. After rehydration his numbers improved slightly also he was found to be somewhat anemic. This is felt to be at least in part delusional and will be followed up as an outpatient carefully Patient's other medical problems including his vascular disease coronary disease his GERD etc not active during this hospitalization Status at Discharge Cognitive/behavioral status at discharge: Normal Functional status at discharge: independent ambulation Overall status at discharge: patient is progressing back to baseline Time Spent with Patient Greater than 30 minutes Exam Vital Signs (past 8 hours): - 12/27/18 04:00 Temperature 98.0 F Pulse Rate 82 Respiratory Rate 18 Blood Pressure 132/62 Pulse Oximetry 98 Oxygen Delivery Method Room Air Oxygen Flow Rate 0 Narrative Exam Narrative: Vitals-as above Eyes-conjunctiva lids and pupils unremarkable Ears, nose, mouth and throat-patient's hearing is unchanged, no new abnormalities of lips teeth and gums or nasal mucosa, hearing unchanged Neck-no bruits no lymphadenopathy Lungs-normal to percussion and palpation anteriorly and posteriorly with good breath sounds throughout. No wheezes no crackles. Heart- Normal S1-S2, regular rate and rhythm, no murmur, rub, or gallop. PMI normal in size and location Abdomen-positive bowel tones, soft, nontender, nondistended, no organomegaly, no masses palpable Extremities-no cyanosis clubbing or edema Neuro-patient moving all 4 extremities, no change in muscle strength which appears normal throughout upper and lower extremities, left and right, deep tendon reflexes normal and unchanged, no new sensory loss Psychiatric-patient's recall of recent hospitalizations unchanged, remains oriented to person place and time, no evidence of depression with normal affect Objective Labs Result Diagrams: 12/27/18 04:52 12/27/18 04:52 Labs: Laboratory Results - last 24 hr 12/27/18 12/27/18 04:52 04:52 WBC 22.5 H RBC 2.31 L Hgb 7.5 L Hct 23.5 L MCV 101.6 H MCH 32.3 MCHC 31.8 RDW 13.6 Plt Count 181 Neut % (Auto) Not Reportable Lymph % (Auto) Not Reportable [place]ward % (Auto) Not Reportable Eos % (Auto) Not Reportable Baso % (Auto) Not Reportable Lymph # (Auto) Not Reportable [place]ward # (Auto) Not Reportable Baso # (Auto) Not Reportable Total Counted 100 Seg Neutrophils % 22.0 L Band Neutrophils % 1.0 L Lymphocytes % (Manual) 70.0 H Monocytes % (Manual) 2.0 Eosinophils % (Manual) 5.0 H Neutrophils # (Manual) 5175 RBC Morphology See below Macrocytosis 1+ H Sodium 142 Potassium 4.5 Chloride 119 H Carbon Dioxide 17 L BUN 19 Creatinine 1.20 Estimated GFR 58.0 L BUN/Creatinine Ratio 15.8 Glucose 88 Calcium 8.2 L Discharge Plan Discharge Plan Patient Disposition: Home Discharge Med Rec/Prescriptions Prescriptions: New vancomycin 125 mg Capsule 125 mg PO QID Qty: 56 RF: 3 Continued clopidogrel [Plavix] 75 mg tablet 75 mg PO DAILY RF: 0 metoprolol succinate 50 MG tablet extended release 24 hr 50 mg PO DAILY RF: 0 simvastatin 40 MG tablet 80 mg PO BEDTIME RF: 0 aspirin 81 mg Tablet,Delayed Release (Dr/Ec) 81 mg PO DAILY RF: 0 Discontinued diphenoxylate-atropine [Lomotil] 2.5-0.025 mg tablet 1 tab PO Q6H PRN (Reason: diarrhea) Qty: 60 RF: 0 Follow up/Referrals: Nicko Diaz MD [Primary Care Provider] - 2 Weeks (patient has appointment with Dr. Diaz on 01/04/19 @ 11:15 already on books [phone]) Provider Discharge Instructions Diet: Diet as Tolerated Visit Report/Discharge Packet Instructions: DI for Dehydration -- Adult, DI for Nausea -- Adult Discharge Data Primary Care Provider: Nicko Diaz Attending Provider: Nicko Diaz Admit Date/Time: 12/24/18 14:49 Quality VTE Deep Vein Thrombosis/Pulmonary Embolism Present on Admission: No
[2018-12-27] MEDS: METOPROLOL ER 50 MG TABLET PO (08:40)
[2018-12-27] MEDS: PANTOPRAZOLE 40 MG VIAL IV (08:40)
[2018-12-27] MEDS: CLOPIDOGREL 75 MG TABLET PO (08:40)
[2018-12-27] MEDS: ASPIRIN EC 81 MG TABLET PO (08:40)
[2018-12-27] MEDS: VANCOMYCIN 125 MG CAPSULE PO ×2 (08:40→11:42)
--- NOTE | 2018-12-27 10:58 | CM.DPC ---
DCP: continued: Case received and d/c order noted. Checked in with AMI Thomas who reports pt is all set up to leave and a friend is going to pick him up by 1100. Outpt followup is planned.
--- NOTE | 2018-12-27 11:49 | PC.NURSE ---
Discharge instructions and home care handouts reviewed with patient. Patient has outpatient follow up appointment scheduled. Patient tolerating meals, denies pain, n/v, and ambulating without difficulty. Reports slight improvement in consistency of stool, with ileostomy bag in place and intact. Patient escorted out via wheelchair with all belongings by CHIEF PHYSICAL THERAPIST to be discharged home with SO. IV was dc'd intact. patient reports no further questions or concerns at this time.
== END 2018-12-27 11:53 | disposition home or self-care (01) | DRG 372 ==
LOC: ED 14:44 → AC 14:49
PROVIDERS: Admitting Provider Internal Medicine; Emergency Provider Emergency Medicine; PCP Internal Medicine; Visit Provider Internal Medicine
DX: A04.71 Enterocolitis due to Clostridium difficile, recurrent (principal); N17.9 Acute kidney failure, unspecified; C83.13 Mantle cell lymphoma, intra-abdominal lymph nodes; E87.5 Hyperkalemia; Z93.2 Ileostomy status; I25.10 Atherosclerotic heart disease of native coronary artery without angina pectoris; I73.9 Peripheral vascular disease, unspecified; E78.2 Mixed hyperlipidemia; Z87.891 Personal history of nicotine dependence; K21.9 Gastro-esophageal reflux disease without esophagitis; R53.1 Weakness
CPT/HCPCS: 36415; 36591; 74019; 80048; 80053; 83605; 83690; 85025; 87507; 93005; 93010; 96361; 96374; 96375; 99214; 99223; 99232; 99233; 99238; 99282; 99284; C9113; J1940; J2060; J2405

== ENCOUNTER → 2019-01-03 14:11 | Outpatient (CLI) | payer OTHER, SELFPAY ==
[2018-12-24 16:08] VITALS: BMI 23.1
[2019-01-03 14:54] LABS: Hematocrit 27.9 % (41-53); Mean Corpuscular HGB Conc 32.2 % (30-36); Mean Corpuscular Hemoglobin 32.2 PG (26-34); Mean Corpuscular Volume 99.9 fL (80-100); Platelet Count 192 X10^3/uL (150-400); Red Blood Cell Count 2.79 X10^6/uL (4.5-5.9); Red Cell Distribution Width 13.7 % (11.6-14.8)
[2019-01-03 14:59] LABS: Add Manual Diff / Slide Review YES
[2019-01-03 15:17] LABS: Neutrophils Absolute Manual 7467 /uL (3000-5900); Platelet Morphology Comment A1; Total Cells Counted 100
[2019-01-03 15:37] LABS: BUN Creatinine Ratio 13.8 (6-22); Blood Urea Nitrogen 18 mg/dL (9-20); Calcium 9.5 mg/dL (8.4-10.2); Carbon Dioxide 22 mmol/L (22-32); Chloride 107 mmol/L (98-107); Estimated Glomerular Filt Rate 52.9 mL/min (>60); Glucose 108 mg/dL (80-110); HEMOLYSIS < 15 (0-50); Potassium 4.6 mmol/L (3.4-5.1); Sodium 139 mmol/L (137-145)
[2019-01-03 15:56] LABS: White Blood Cell Count 39.3 X10^3/uL (4.5-11.0)
== END ==
PROVIDERS: PCP Internal Medicine; Visit Provider Internal Medicine
DX: A04.72 Enterocolitis due to Clostridium difficile, not specified as recurrent (principal); C83.10 Mantle cell lymphoma, unspecified site; E87.5 Hyperkalemia; N17.9 Acute kidney failure, unspecified
CPT/HCPCS: 36415; 80048; 85025

== ENCOUNTER → 2019-01-17 14:41 | Outpatient (CLI) | payer OTHER, SELFPAY ==
[2018-12-24 16:08] VITALS: BMI 23.1
[2019-01-17 15:39] LABS: Hematocrit 28.3 % (41-53); Hemoglobin 9.2 g/dL (13.5-17.5); Mean Corpuscular HGB Conc 32.5 % (30-36); Mean Corpuscular Hemoglobin 32.5 PG (26-34); Mean Corpuscular Volume 100.2 fL (80-100); Platelet Count 184 X10^3/uL (150-400); Red Blood Cell Count 2.83 X10^6/uL (4.5-5.9); Red Cell Distribution Width 14.2 % (11.6-14.8)
[2019-01-17 15:41] LABS: Add Manual Diff / Slide Review YES
[2019-01-17 15:45] LABS: White Blood Cell Count 42.5 X10^3/uL (4.5-11.0)
[2019-01-17 15:48] LABS: BUN Creatinine Ratio 23.8 (6-22); Blood Urea Nitrogen 38 mg/dL (9-20); Calcium 9.6 mg/dL (8.4-10.2); Carbon Dioxide 19 mmol/L (22-32); Chloride 107 mmol/L (98-107); Estimated Glomerular Filt Rate 41.6 mL/min (>60); Glucose 88 mg/dL (80-110); HEMOLYSIS < 15 (0-50); Potassium 5.2 mmol/L (3.4-5.1); Sodium 137 mmol/L (137-145)
[2019-01-17 16:24] LABS: Neutrophils Absolute Manual 7650 /uL (3000-5900); RBC Morphology Normal Morphology; Total Cells Counted 100
== END ==
PROVIDERS: PCP Internal Medicine; Visit Provider Internal Medicine
DX: C83.10 Mantle cell lymphoma, unspecified site (principal); N17.9 Acute kidney failure, unspecified
CPT/HCPCS: 36415; 80048; 85025

== ENCOUNTER → 2019-02-07 13:45 | Outpatient (CLI) | payer OTHER, SELFPAY ==
[2019-02-07 14:54] LABS: Hematocrit 27.9 % (41-53); Hemoglobin 9.1 g/dL (13.5-17.5); Mean Corpuscular HGB Conc 32.8 % (30-36); Mean Corpuscular Volume 100.6 fL (80-100); Platelet Count 178 X10^3/uL (150-400); Red Blood Cell Count 2.77 X10^6/uL (4.5-5.9); Red Cell Distribution Width 14.6 % (11.6-14.8)
[2019-02-07 15:09] LABS: Add Manual Diff / Slide Review YES
[2019-02-07 15:32] LABS: Neutrophils Absolute Manual 5124 /uL (3000-5900); Total Cells Counted 100
[2019-02-07 15:34] LABS: RBC Morphology Normal Morphology
[2019-02-07 15:54] LABS: White Blood Cell Count 42.7 X10^3/uL (4.5-11.0)
[2019-02-07 16:55] LABS: BUN Creatinine Ratio 28.9 (6-22); Blood Urea Nitrogen 52 mg/dL (9-20); Calcium 10.1 mg/dL (8.4-10.2); Carbon Dioxide 20 mmol/L (22-32); Chloride 110 mmol/L (98-107); Estimated Glomerular Filt Rate 36.3 mL/min (>60); Glucose 126 mg/dL (80-110); HEMOLYSIS < 15 (0-50); Sodium 140 mmol/L (137-145)
== END ==
PROVIDERS: PCP Internal Medicine; Visit Provider Internal Medicine
DX: A04.72 Enterocolitis due to Clostridium difficile, not specified as recurrent (principal); C83.10 Mantle cell lymphoma, unspecified site; E87.5 Hyperkalemia; N17.9 Acute kidney failure, unspecified
CPT/HCPCS: 36415; 80048; 85025

== ENCOUNTER → 2019-02-09 14:46 | Outpatient (CLI) | payer OTHER, SELFPAY ==
[2019-02-09 16:37] LABS: Clostridium Difficile Tox PCR Negative for C. diff
== END ==
PROVIDERS: PCP Internal Medicine; Visit Provider Internal Medicine
DX: C83.10 Mantle cell lymphoma, unspecified site (principal); A04.72 Enterocolitis due to Clostridium difficile, not specified as recurrent; E87.5 Hyperkalemia; N17.9 Acute kidney failure, unspecified
CPT/HCPCS: 87493

== ENCOUNTER → 2019-03-01 12:00 | Outpatient (CLI) | payer OTHER, SELFPAY ==
[2019-03-01 12:26] LABS: Hematocrit 28.8 % (41-53); Hemoglobin 9.1 g/dL (13.5-17.5); Mean Corpuscular HGB Conc 31.6 % (30-36); Mean Corpuscular Hemoglobin 31.8 PG (26-34); Mean Corpuscular Volume 100.6 fL (80-100); Platelet Count 186 X10^3/uL (150-400); Red Blood Cell Count 2.87 X10^6/uL (4.5-5.9); Red Cell Distribution Width 13.9 % (11.6-14.8)
[2019-03-01 12:29] LABS: Add Manual Diff / Slide Review YES; White Blood Cell Count 51.2 X10^3/uL (4.5-11.0)
[2019-03-01 12:43] LABS: BUN Creatinine Ratio 22.8 (6-22); Blood Urea Nitrogen 66 mg/dL (9-20); Calcium 9.7 mg/dL (8.4-10.2); Carbon Dioxide 18 mmol/L (22-32); Chloride 108 mmol/L (98-107); Estimated Glomerular Filt Rate 20.9 mL/min (>60); Glucose 144 mg/dL (80-110); HEMOLYSIS < 15 (0-50); Potassium 4.6 mmol/L (3.4-5.1); Sodium 138 mmol/L (137-145)
[2019-03-01 13:14] LABS: Anisocytosis 2+; Neutrophils Absolute Manual 7168 /uL (3000-5900); Poikilocytosis 1+; Total Cells Counted 100
== END ==
PROVIDERS: PCP Internal Medicine; Visit Provider Internal Medicine
DX: I25.10 Atherosclerotic heart disease of native coronary artery without angina pectoris (principal); N17.9 Acute kidney failure, unspecified; C83.10 Mantle cell lymphoma, unspecified site
CPT/HCPCS: 36415; 80048; 85025

== ENCOUNTER 2019-03-02 12:17 | Emergency (ER) | payer OTHER, SELFPAY ==
[2019-03-02 12:41] VITALS: BP 130/59; PULSE 85; RESP 17; TEMP 37; O2SAT 100
--- NOTE | 2019-03-02 13:11 | ED.RECABL ---
HPI - Recheck/Abnormal Lab/Rx <FARHAN Hutchins - Last Filed: 03/02/19 20:29> General Chief Complaint: Recheck/Abnormal Lab/Rx Stated Complaint: states his fluid levels are low Time Seen by Provider: 03/02/19 12:56 Source: patient and family Mode of arrival: ambulatory Limitations: no limitations History of Present Illness HPI narrative: The patient is an 83-year-old male former smoker presents with a friend for chief complaint of needing infusions. 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 Diaz yesterday. Labs were ordered, and he states he received a phone call stating that he needed to either start drinking lots of fluids or come to the emergency department for fluids due to his elevated kidney labs from yesterday. The patient has been seen by 2 different oncologist getting different opinions regarding his treatment. Chart review illustrate that hospice has been brought up several times. The patient states that he has no symptoms today, no abnormal pain shortness of breath fever nausea vomiting or diarrhea. He denies any chest pain. he states that the last time he came in for dehydration, is found to have a potassium of 6.6 and was admitted for several days. He does not want to be admitted today. He states he would drink fluids at home, but he finds it difficult due to swollen lymph nodes. Related Data Home Medications Medication Instructions Recorded Confirmed clopidogrel 75 mg tablet 75 mg PO DAILY 08/10/18 03/08/19 aspirin 81 mg PO DAILY 11/30/18 03/08/19 Previous Rx's Medication Instructions Recorded tamsulosin 0.4 mg capsule 0.4 mg PO DAILY #30 cap 02/08/19 ibrutinib 560 mg PO DAILY #30 tab 03/08/19 Allergies Allergy/AdvReac Type Severity Reaction Status Date / Time No Known Drug Allergies Allergy Verified 03/01/19 11:18 Review of Systems <FARHAN Hutchins - Last Filed: 03/02/19 20:29> Review of Systems GENERAL: See HPI HEENT: See HPI RESPIRATORY: Denies dyspnea, cough, wheezing, hemoptysis, sputum. CARDIOVASCULAR: Denies chest pain, palpitations, orthopnea, edema, GASTROINTESTINAL: Denies nausea, vomiting, abdominal pain, diarrhea, constipation, melena. : Denies dysuria, frequency, incontinence, hematuria, urinary retention. MUSCULOSKELETAL: denies weakness, joint pain, or bony pain SKIN: Denies rash, skin lesions, or other NEUROLOGIC: Denies weakness, headache, numbness, change in speech, confusion, seizures, incoordination. PSYCHIATRIC: No concerning psychosocial issues. 12 point review of systems is negative except for those stated above PFSH <FARHAN Hutchins - Last Filed: 03/02/19 20:29> Medical History 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) Coronary artery disease (Chronic ~04/2016) Peripheral vascular disease (Chronic) GERD (gastroesophageal reflux disease) (Chronic) Mixed hyperlipidemia (Chronic 06/23/11) Elevated prostate specific antigen (PSA) (Chronic 06/23/11) Ileostomy present (Inactive 01/21/14) Status post insertion of drug-eluting stent into right coronary artery for coronary artery disease (Inactive 05/06/16) Hematuria (Resolved) Ulcerative colitis (Resolved) Surgical History Status post colectomy (~1969) Status post transurethral resection of prostate Social History household members: friend(s) Smoking Status: Former smoker alcohol intake: current Social History Smoking Status: Former smoker Exam <FARHAN Hutchins - Last Filed: 03/02/19 20:29> Narrative Exam Narrative: GENERAL: Chronically ill-appearing patient lying on stretcher HEAD: Atraumatic. Normocephalic. No temporal or scalp tenderness. EYES: Pupils equal round and reactive. Extraocular motions intact. No scleral icterus. No injection or drainage. ENT: Nose without bleeding, purulent drainage or septal hematoma. Throat without erythema, tonsillar hypertrophy or exudate. Uvula midline. Airway patent. NECK: Trachea midline. significant bilateral lymphadenopathy. Supple, nontender, no meningeal signs. CARDIOVASCULAR: Regular rate and rhythm RESPIRATORY: Coarse breath sounds to auscultation. Breath sounds equal bilaterally. No wheezes, rales, or rhonchi. No cough. No accessory muscle use. No increased respiratory effort GASTROINTESTINAL: Abdomen soft, diffusely tender, nondistended. No hepato-splenomegaly, or palpable masses. No guarding. EXTREMITIES: No clubbing, cyanosis, or edema. No joint tenderness, effusion, or edema noted. BACK: Nontender without deformity or crepitance. No flank tenderness. NEURO: AOx3. SKIN: No rash or erythema. Initial Vital Signs Initial Vital Signs: Vital Signs Temperature 98.6 F 03/02/19 12:41 Pulse Rate 85 03/02/19 12:41 Respiratory Rate 17 03/02/19 12:41 Blood Pressure 130/59 L 03/02/19 12:41 Pulse Oximetry 100 03/02/19 12:41 <Jenny Parrish DO - Last Filed: 03/10/19 07:09> Initial Vital Signs Initial Vital Signs: Vital Signs Temperature 98.6 F 03/02/19 12:41 Pulse Rate 85 03/02/19 12:41 Respiratory Rate 17 03/02/19 12:41 Blood Pressure 130/59 L 03/02/19 12:41 Pulse Oximetry 100 03/02/19 12:41 Course <EVON Hutchins-BC - Last Filed: 03/02/19 20:29> Orders Ordered: Discontinued Medications Sodium Chloride (Normal Saline 0.9%) 1,000 mls @ 1,000 mls/hr IV BOLUS ONE Stop: 03/02/19 14:10 Last Infusion: 03/02/19 16:31 Dose: 0 mls/hr Admin: 03/02/19 14:45 Dose: 1,000 mls/hr Sodium Chloride (Normal Saline 0.9%) 1,000 mls @ 1,000 mls/hr IV BOLUS ONE Stop: 03/02/19 16:41 Last Infusion: 03/02/19 16:48 Dose: 0 mls/hr Admin: 03/02/19 15:43 Dose: 1,000 mls/hr Vital Signs - 8 hr 03/02/19 12:41 03/02/19 13:12 03/02/19 14:56 Temperature 98.6 F Pulse Rate 85 85 89 Respiratory Rate 17 17 18 Blood Pressure 130/59 L Blood Pressure [Right Arm] 120/48 L 125/55 L Pulse Oximetry 100 100 98 03/02/19 16:24 03/02/19 17:00 03/02/19 17:30 Temperature Pulse Rate 81 97 H 93 H Respiratory Rate 19 18 17 Blood Pressure Blood Pressure [Right Arm] 109/52 L 130/57 L 128/70 Pulse Oximetry 97 99 98 <Jenny Parrish DO - Last Filed: 03/10/19 07:09> Orders Ordered: Discontinued Medications Sodium Chloride (Normal Saline 0.9%) 1,000 mls @ 1,000 mls/hr IV BOLUS ONE Stop: 03/02/19 14:10 Last Infusion: 03/02/19 16:31 Dose: 0 mls/hr Admin: 03/02/19 14:45 Dose: 1,000 mls/hr Sodium Chloride (Normal Saline 0.9%) 1,000 mls @ 1,000 mls/hr IV BOLUS ONE Stop: 03/02/19 16:41 Last Infusion: 03/02/19 16:48 Dose: 0 mls/hr Admin: 03/02/19 15:43 Dose: 1,000 mls/hr Vital Signs - 8 hr 03/02/19 12:41 03/02/19 13:12 03/02/19 14:56 Temperature 98.6 F Pulse Rate 85 85 89 Respiratory Rate 17 17 18 Blood Pressure 130/59 L Blood Pressure [Right Arm] 120/48 L 125/55 L Pulse Oximetry 100 100 98 03/02/19 16:24 03/02/19 17:00 03/02/19 17:30 Temperature Pulse Rate 81 97 H 93 H Respiratory Rate 19 18 17 Blood Pressure Blood Pressure [Right Arm] 109/52 L 130/57 L 128/70 Pulse Oximetry 97 99 98 MDM - Recheck/Abnormal Lab/Rx <VEON Hutchins-BC - Last Filed: 03/02/19 20:29> Lab Data Result diagrams: 03/02/19 14:25 03/02/19 14:25 Lab Results 03/02/19 03/02/19 03/02/19 Range/Units 14:25 14:25 14:25 WBC 44.9 H* (4.5-11.0) X10^3/uL RBC 2.69 L (4.5-5.9) X10^6/uL Hgb 8.5 L (13.5-17.5) g/dL Hct 27.2 L (41-53) % MCV 101.1 H (80-100) fL MCH 31.4 (26-34) PG MCHC 31.1 (30-36) % RDW 14.0 (11.6-14.8) % Plt Count 164 (150-400) X10^3/uL Neut % (Auto) Emissions Engineer Lymph % (Auto) Emissions Engineer [place] % (Auto) Emissions Engineer Eos % (Auto) Emissions Engineer Baso % (Auto) Emissions Engineer Neut # (Auto) Emissions Engineer Lymph # (Auto) Emissions Engineer [place] # (Auto) Emissions Engineer Eos # (Auto) Emissions Engineer Baso # (Auto) Emissions Engineer Total Counted 100 Seg Neutrophils % 14.0 L (38-70) % Band Neutrophils % 2.0 L (3-7) % Lymphocytes % (Manual) 82.0 H (25-45) % Monocytes % (Manual) 2.0 (2-11) % Neutrophils # (Manual) 7184 H (8735-7045) /uL RBC Morphology See below Poikilocytosis 1+ H Sodium 139 (137-145) mmol/L Potassium 4.8 (3.4-5.1) mmol/L Chloride 110 H (98-107) mmol/L Carbon Dioxide 18 L (22-32) mmol/L BUN 62 H (9-20) mg/dL Creatinine 2.70 H (0.66-1.25) mg/dL Estimated GFR 22.7 L (>60) mL/min BUN/Creatinine Ratio 23.0 H (6-22) Glucose 85 (80-110) mg/dL Lactate 0.7 (0.7-2.1) mmol/L Calcium 9.4 (8.4-10.2) mg/dL Total Bilirubin 0.2 (0.2-1.3) mg/dL AST 17 (17-59) IU/L ALT 16 L (21-72) IU/L Alkaline Phosphatase 70 (38-126) U/L Total Protein 6.0 L (6.3-8.2) g/dL Albumin 3.7 (3.5-5.0) g/dL Globulin 2.3 (1.7-4.1) g/dL Albumin/Globulin Ratio 1.6 (1.0-2.8) Amylase 70 (30-110) U/L Lipase 290 (23-300) U/L MDM Narrative Medical decision making narrative: The patient is an 83-year-old male with a complicated medical history including lymphoma. Today I recheck his lab work, given 2 L of IV fluid and he stated he felt better. I did speak with Dr. Francis regarding the patient, who put in for nurse for outpatient blood work to be done tomorrow in order to trend his kidney function. The patient does not want to be admitted today. Given that he was waxing and waning between hospice and pursuing treatment, I had the care assistant in the emergency department speak with him. Elizabeth also works as a care assistant for Oncology, and will work to expedite the patient's follow-up with Dr. Sanchez and be there for his future appointment. I discussed at length trying to stay hydrated, taking small frequent sips of fluids and stay hydrated. the patient was able to ambulate around the emergency department around the ER prior to discharge. discussed return precautions. Encourage patient to follow up with outpatient lab work tomorrow as well as with his oncologist and his primary care physician. Patient has no questions or concerns upon discharge. <Jenny Parrish, DO - Last Filed: 03/10/19 07:09> Lab Data Lab Results 03/02/19 03/02/19 03/02/19 Range/Units 14:25 14:25 14:25 WBC 44.9 H* (4.5-11.0) X10^3/uL RBC 2.69 L (4.5-5.9) X10^6/uL Hgb 8.5 L (13.5-17.5) g/dL Hct 27.2 L (41-53) % MCV 101.1 H (80-100) fL MCH 31.4 (26-34) PG MCHC 31.1 (30-36) % RDW 14.0 (11.6-14.8) % Plt Count 164 (150-400) X10^3/uL Neut % (Auto) Emissions Engineer Lymph % (Auto) Emissions Engineer [place] % (Auto) Emissions Engineer Eos % (Auto) Emissions Engineer Baso % (Auto) Emissions Engineer Neut # (Auto) Emissions Engineer Lymph # (Auto) Emissions Engineer [place] # (Auto) Emissions Engineer Eos # (Auto) Emissions Engineer Baso # (Auto) Emissions Engineer Total Counted 100 Seg Neutrophils % 14.0 L (38-70) % Band Neutrophils % 2.0 L (3-7) % Lymphocytes % (Manual) 82.0 H (25-45) % Monocytes % (Manual) 2.0 (2-11) % Neutrophils # (Manual) 7184 H (9603-5568) /uL RBC Morphology See below Poikilocytosis 1+ H Sodium 139 (137-145) mmol/L Potassium 4.8 (3.4-5.1) mmol/L Chloride 110 H (98-107) mmol/L Carbon Dioxide 18 L (22-32) mmol/L BUN 62 H (9-20) mg/dL Creatinine 2.70 H (0.66-1.25) mg/dL Estimated GFR 22.7 L (>60) mL/min BUN/Creatinine Ratio 23.0 H (6-22) Glucose 85 (80-110) mg/dL Lactate 0.7 (0.7-2.1) mmol/L Calcium 9.4 (8.4-10.2) mg/dL Total Bilirubin 0.2 (0.2-1.3) mg/dL AST 17 (17-59) IU/L ALT 16 L (21-72) IU/L Alkaline Phosphatase 70 (38-126) U/L Total Protein 6.0 L (6.3-8.2) g/dL Albumin 3.7 (3.5-5.0) g/dL Globulin 2.3 (1.7-4.1) g/dL Albumin/Globulin Ratio 1.6 (1.0-2.8) Amylase 70 (30-110) U/L Lipase 290 (23-300) U/L Discharge Plan Departure Patient Disposition: Home Clinical Impression: Acute dehydration, Elevated BUN, Creatinine elevation Discharge Date/Time: 03/02/19 18:42 Interventions: ED Discharge Assessment Last Done: 03/02/19 18:42 Instructions: DI for Dehydration -- Adult Activity Restrictions/Additional Instructions: I spoke with Dr. Francis regarding your labs. He has ordered outpatient labs to be done after 8:00 a.m. tomorrow. Please get these done. Please take small amounts of fluids as you are able. Please follow up with Dr. Diaz as soon as possible. Please come back to the emergency department for any acute concerns. Prescriptions: No Action clopidogrel [Plavix] 75 mg tablet 75 mg PO DAILY RF: 0 tamsulosin 0.4 mg capsule 0.4 mg PO DAILY Qty: 30 RF: 3 ibrutinib 560 mg Tablet 560 mg PO DAILY Qty: 30 RF: 11 aspirin 81 mg Tablet,Delayed Release (Dr/Ec) 81 mg PO DAILY RF: 0 Referrals: Nicko Diaz MD [Primary Care Provider] - <Jenny Parrish DO - Last Filed: 03/10/19 07:09> Cosign ED Attending Cosignature Attestation: I was immediately available in the department for consultation. This documentation has been reviewed and I agree with assessment and plan. Supervised by Jenny Parrish DO
[2019-03-02 13:12] VITALS: BP 120/48; PULSE 85; RESP 17; O2SAT 100
[2019-03-02 14:36] LABS: Hematocrit 27.2 % (41-53); Hemoglobin 8.5 g/dL (13.5-17.5); Mean Corpuscular HGB Conc 31.1 % (30-36); Mean Corpuscular Hemoglobin 31.4 PG (26-34); Mean Corpuscular Volume 101.1 fL (80-100); Platelet Count 164 X10^3/uL (150-400); Red Blood Cell Count 2.69 X10^6/uL (4.5-5.9)
[2019-03-02 14:40] LABS: White Blood Cell Count 44.9 X10^3/uL (4.5-11.0)
[2019-03-02 14:41] LABS: Add Manual Diff / Slide Review YES
[2019-03-02] MEDS: SODIUM CHLORIDE 0.9% 1,000 ML 1000 ML IV ×2 (14:45→15:43)
[2019-03-02 14:50] LABS: Alanine Aminotransferase 16 IU/L (21-72); Albumin 3.7 g/dL (3.5-5.0); Albumin Globulin Ratio 1.6 (1.0-2.8); Alkaline Phosphatase 70 U/L (38-126); Amylase 70 U/L (30-110); Aspartate Aminotransferase 17 IU/L (17-59); Bilirubin Total 0.2 mg/dL (0.2-1.3); Blood Urea Nitrogen 62 mg/dL (9-20); Calcium 9.4 mg/dL (8.4-10.2); Carbon Dioxide 18 mmol/L (22-32); Chloride 110 mmol/L (98-107); Estimated Glomerular Filt Rate 22.7 mL/min (>60); Globulin 2.3 g/dL (1.7-4.1); Glucose 85 mg/dL (80-110); HEMOLYSIS < 15 (0-50); Lipase 290 U/L (23-300); Potassium 4.8 mmol/L (3.4-5.1); Sodium 139 mmol/L (137-145)
[2019-03-02 14:51] LABS: Lactate (Lactic Acid) 0.7 mmol/L (0.7-2.1)
[2019-03-02 14:53] LABS: Neutrophils Absolute Manual 7184 /uL (3000-5900); Total Cells Counted 100
[2019-03-02 14:54] LABS: Poikilocytosis 1+
[2019-03-02 14:56] VITALS: BP 125/55; PULSE 89; RESP 18; O2SAT 98
[2019-03-02 16:24] VITALS: BP 109/52; PULSE 81; RESP 19; O2SAT 97
[2019-03-02 17:00] VITALS: BP 130/57; PULSE 97; RESP 18; O2SAT 99
[2019-03-02 17:30] VITALS: BP 128/70; PULSE 93; RESP 17; O2SAT 98
--- NOTE | 2019-03-02 18:39 | CM.SWNOTE ---
ED visit per provider request. Pt presented to the ED with dehydration. Pt expressed frustration that he had gone to [facility] for a second opinion re: his oncologic treatment options, disease progression and continued care planning. He was told at that visit that the oncologist at [facility] agreed with the recommendations from Dr. Hicks from [facility]. Hospice was again discussed, however pt did not feel as though he had adequate information re: where he was at in his disease progression, if he had really reached the end of aggressive treatment options, and felt abandoned. In fact, upon chart review, pt did not make a f/u appt. with Dr. Hicks as he was directed to do following his [facility] consult. In meeting with him, FINISHING PAN OPERATOR was able to have a thorough discussion re: palliative goals of care, and what pt felt that he was needing in order to feel comfortable about discontinuing aggressive treatment and opting comfort focused, quality of life care. He stated that he wanted an honest and clear discussion with Dr. Hicks, and that in fact he does feel ready for hospice, but wants to make sure that there were no other options to make him feel more comfortable. Part of the reason he became so dehydrated was a direct result of the severe swelling of the lymph nodes on both sides of his throat, which are causing him to choke on water and thin fluids. He feels frustrated and wants to be more comfortable. FINISHING PAN OPERATOR discussed a plan to assist in getting pt scheduled with an expedited f/u appt. with Dr. Hicks next week. The family would like this visit to focus on his desire for quality of life and symptom management, and if possible, to discuss any interventions that may be available to help reduce the swelling in his throat so he can avoid further ED visits from dehydration, be more comfortable, and be able to continue improved PO intake with food/fluids. Family expressed feeling relieved re: this conversation, and look forward to meeting again with Dr. Hicks to discuss next steps.
--- NOTE | 2019-03-02 20:29 | ED_ITS ---
HPI - Recheck/Abnormal Lab/Rx <FARHAN Hutchins - Last Filed: 03/02/19 20:29> General Chief Complaint: Recheck/Abnormal Lab/Rx Stated Complaint: states his fluid levels are low Time Seen by Provider: 03/02/19 12:56 Source: patient and family Mode of arrival: ambulatory Limitations: no limitations History of Present Illness HPI narrative: The patient is an 83-year-old male former smoker presents with a friend for chief complaint of needing infusions. 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 Diaz yesterday. Labs were ordered, and he states he received a phone call stating that he needed to either start drinking lots of fluids or come to the emergency department for fluids due to his elevated kidney labs from yesterday. The patient has been seen by 2 different oncologist getting different opinions regarding his treatment. Chart review illustrate that hospice has been brought up several times. The patient states that he has no symptoms today, no abnormal pain shortness of breath fever nausea vomiting or diarrhea. He denies any chest pain. he states that the last time he came in for dehydration, is found to have a potassium of 6.6 and was admitted for irasema . He does not want to be admitted today. He states he would drink fluids at home, but he finds it difficult due to swollen lymph nodes. Related Data Home Medications Medication Instructions Recorded Confirmed clopidogrel 75 mg tablet 75 mg PO DAILY 08/10/18 03/08/19 aspirin 81 mg PO DAILY 11/30/18 03/08/19 Previous Rx's Medication Instructions Recorded tamsulosin 0.4 mg capsule 0.4 mg PO DAILY #30 cap 02/08/19 ibrutinib 560 mg PO DAILY #30 tab 03/08/19 Allergies Allergy/AdvReac Type Severity Reaction Status Date / Time No Known Drug Allergies Allergy Verified 03/01/19 11:18 Review of Systems <FARHAN Hutchins - Last Filed: 03/02/19 20:29> Review of Systems GENERAL: See HPI HEENT: See HPI RESPIRATORY: Denies dyspnea, cough, wheezing, hemoptysis, sputum. CARDIOVASCULAR: Denies chest pain, palpitations, orthopnea, edema, GASTROINTESTINAL: Denies nausea, vomiting, abdominal pain, diarrhea, constipation, melena. : Denies dysuria, frequency, incontinence, hematuria, urinary retention. MUSCULOSKELETAL: denies weakness, joint pain, or bony pain SKIN: Denies rash, skin lesions, or other NEUROLOGIC: Denies weakness, headache, numbness, change in speech, confusion, seizures, incoordination. PSYCHIATRIC: No concerning psychosocial issues. 12 point review of systems is negative except for those stated above PFSH <FARHAN Hutchins - Last Filed: 03/02/19 20:29> Medical History 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) Coronary artery disease (Chronic ~04/2016) Peripheral vascular disease (Chronic) GERD (gastroesophageal reflux disease) (Chronic) Mixed hyperlipidemia (Chronic 06/23/11) Elevated prostate specific antigen (PSA) (Chronic 06/23/11) Ileostomy present (Inactive 01/21/14) Status post insertion of drug-eluting stent into right coronary artery for coronary artery disease (Inactive 05/06/16) Hematuria (Resolved) Ulcerative colitis (Resolved) Surgical History Status post colectomy (~1969) Status post transurethral resection of prostate Social History household members: friend(s) Smoking Status: Former smoker alcohol intake: current Social History Smoking Status: Former smoker Exam <FARHAN Hutchins - Last Filed: 03/02/19 20:29> Narrative Exam Narrative: GENERAL: Chronically ill-appearing patient lying on stretcher HEAD: Atraumatic. Normocephalic. No temporal or scalp tenderness. EYES: Pupils equal round and reactive. Extraocular motions intact. No scleral icterus. No injection or drainage. ENT: Nose without bleeding, purulent drainage or septal hematoma. Throat without erythema, tonsillar hypertrophy or exudate. Uvula midline. Airway patent. NECK: Trachea midline. significant bilateral lymphadenopathy. Supple, nontender, no meningeal signs. CARDIOVASCULAR: Regular rate and rhythm RESPIRATORY: Coarse breath sounds to auscultation. Breath sounds equal bilaterally. No wheezes, rales, or rhonchi. No cough. No accessory muscle use. No increased respiratory effort GASTROINTESTINAL: Abdomen soft, diffusely tender, nondistended. No hepato- splenomegaly, or palpable masses. No guarding. EXTREMITIES: No clubbing, cyanosis, or edema. No joint tenderness, effusion, or edema noted. BACK: Nontender without deformity or crepitance. No flank tenderness. NEURO: AOx3. SKIN: No rash or erythema. Initial Vital Signs Initial Vital Signs: Vital Signs Temperature 98.6 F 03/02/19 12:41 Pulse Rate 85 03/02/19 12:41 Respiratory Rate 17 03/02/19 12:41 Blood Pressure 130/59 L 03/02/19 12:41 Pulse Oximetry 100 03/02/19 12:41 <Jenny Parrish DO - Last Filed: 03/10/19 07:09> Initial Vital Signs Initial Vital Signs: Vital Signs Temperature 98.6 F 03/02/19 12:41 Pulse Rate 85 03/02/19 12:41 Respiratory Rate 17 03/02/19 12:41 Blood Pressure 130/59 L 03/02/19 12:41 Pulse Oximetry 100 03/02/19 12:41 Course <EVON Hutchins-BC - Last Filed: 03/02/19 20:29> Orders Ordered: Discontinued Medications Sodium Chloride (Normal Saline 0.9%) 1,000 mls @ 1,000 mls/hr IV BOLUS ONE Stop: 03/02/19 14:10 Last Infusion: 03/02/19 16:31 Dose: 0 mls/hr Admin: 03/02/19 14:45 Dose: 1,000 mls/hr Sodium Chloride (Normal Saline 0.9%) 1,000 mls @ 1,000 mls/hr IV BOLUS ONE Stop: 03/02/19 16:41 Last Infusion: 03/02/19 16:48 Dose: 0 mls/hr Admin: 03/02/19 15:43 Dose: 1,000 mls/hr Vital Signs - 8 hr 03/02/19 12:41 03/02/19 13:12 03/02/19 14:56 Temperature 98.6 F Pulse Rate 85 85 89 Respiratory Rate 17 17 18 Blood Pressure 130/59 L Blood Pressure [Right Arm] 120/48 L 125/55 L Pulse Oximetry 100 100 98 03/02/19 16:24 03/02/19 17:00 03/02/19 17:30 Temperature Pulse Rate 81 97 H 93 H Respiratory Rate 19 18 17 Blood Pressure Blood Pressure [Right Arm] 109/52 L 130/57 L 128/70 Pulse Oximetry 97 99 98 <Jenny Parrish DO - Last Filed: 03/10/19 07:09> Orders Ordered: Discontinued Medications Sodium Chloride (Normal Saline 0.9%) 1,000 mls @ 1,000 mls/hr IV BOLUS ONE Stop: 03/02/19 14:10 Last Infusion: 03/02/19 16:31 Dose: 0 mls/hr Admin: 03/02/19 14:45 Dose: 1,000 mls/hr Sodium Chloride (Normal Saline 0.9%) 1,000 mls @ 1,000 mls/hr IV BOLUS ONE Stop: 03/02/19 16:41 Last Infusion: 03/02/19 16:48 Dose: 0 mls/hr Admin: 03/02/19 15:43 Dose: 1,000 mls/hr Vital Signs - 8 hr 03/02/19 12:41 03/02/19 13:12 03/02/19 14:56 Temperature 98.6 F Pulse Rate 85 85 89 Respiratory Rate 17 17 18 Blood Pressure 130/59 L Blood Pressure [Right Arm] 120/48 L 125/55 L Pulse Oximetry 100 100 98 03/02/19 16:24 03/02/19 17:00 03/02/19 17:30 Temperature Pulse Rate 81 97 H 93 H Respiratory Rate 19 18 17 Blood Pressure Blood Pressure [Right Arm] 109/52 L 130/57 L 128/70 Pulse Oximetry 97 99 98 MDM - Recheck/Abnormal Lab/Rx <EVON Hutchins-BC - Last Filed: 03/02/19 20:29> Lab Data Result diagrams: 03/02/19 14:25 03/02/19 14:25 Lab Results 03/02/19 03/02/19 03/02/19 Range/Units 14:25 14:25 14:25 WBC 44.9 H* (4.5-11.0) X10^3/uL RBC 2.69 L (4.5-5.9) X10^6/uL Hgb 8.5 L (13.5-17.5) g/dL Hct 27.2 L (41-53) % MCV 101.1 H (80-100) fL MCH 31.4 (26-34) PG MCHC 31.1 (30-36) % RDW 14.0 (11.6-14.8) % Plt Count 164 (150-400) X10^3/uL Neut % (Auto) Air Pollution Analyst Lymph % (Auto) Air Pollution Analyst [place] % (Auto) Air Pollution Analyst Eos % (Auto) Air Pollution Analyst Baso % (Auto) Air Pollution Analyst Neut # (Auto) Air Pollution Analyst Lymph # (Auto) Air Pollution Analyst [place] # (Auto) Air Pollution Analyst Eos # (Auto) Air Pollution Analyst Baso # (Auto) Air Pollution Analyst Total Counted 100 Seg Neutrophils % 14.0 L (38-70) % Band Neutrophils % 2.0 L (3-7) % Lymphocytes % (Manual) 82.0 H (25-45) % Monocytes % (Manual) 2.0 (2-11) % Neutrophils # (Manual) 7184 H (4046-3682) /uL RBC Morphology See below Poikilocytosis 1+ H Sodium 139 (137-145) mmol/L Potassium 4.8 (3.4-5.1) mmol/L Chloride 110 H (98-107) mmol/L Carbon Dioxide 18 L (22-32) mmol/L BUN 62 H (9-20) mg/dL Creatinine 2.70 H (0.66-1.25) mg/dL Estimated GFR 22.7 L (>60) mL/min BUN/Creatinine Ratio 23.0 H (6-22) Glucose 85 (80-110) mg/dL Lactate 0.7 (0.7-2.1) mmol/L Calcium 9.4 (8.4-10.2) mg/dL Total Bilirubin 0.2 (0.2-1.3) mg/dL AST 17 (17-59) IU/L ALT 16 L (21-72) IU/L Alkaline Phosphatase 70 (38-126) U/L Total Protein 6.0 L (6.3-8.2) g/dL Albumin 3.7 (3.5-5.0) g/dL Globulin 2.3 (1.7-4.1) g/dL Albumin/Globulin Ratio 1.6 (1.0-2.8) Amylase 70 (30-110) U/L Lipase 290 (23-300) U/L MDM Narrative Medical decision making narrative: The patient is an 83-year-old male with a complicated medical history including lymphoma. Today I recheck his lab work, given 2 L of IV fluid and he stated he felt better. I did speak with Dr. Francis regarding the patient, who put in for nurse for outpatient blood work to be done tomorrow in order to trend his kidney function. The patient does not want to be admitted today. Given that he was waxing and waning between hospice and pursuing treatment, I had the care transition coordinator in the emergency department speak with him. Elizabeth also works as a care transition coordinator for Oncology, and will work to expedite the patient's follow-up with Dr. Sanchez and be there for his future appointment. I discussed at length trying to stay hydrated, taking small frequent sips of fluids and stay hydrated. the patient was able to ambulate around the emergency department around the ER prior to discharge. discussed return precautions. Encourage patient to follow up with outpatient lab work tomorrow as well as with his oncologist and his primary care physician. Patient has no questions or concerns upon discharge. <Jenny Parrish, DO - Last Filed: 03/10/19 07:09> Lab Data Lab Results 03/02/19 03/02/19 03/02/19 Range/Units 14:25 14:25 14:25 WBC 44.9 H* (4.5-11.0) X10^3/uL RBC 2.69 L (4.5-5.9) X10^6/uL Hgb 8.5 L (13.5-17.5) g/dL Hct 27.2 L (41-53) % MCV 101.1 H (80-100) fL MCH 31.4 (26-34) PG MCHC 31.1 (30-36) % RDW 14.0 (11.6-14.8) % Plt Count 164 (150-400) X10^3/uL Neut % (Auto) Air Pollution Analyst Lymph % (Auto) Air Pollution Analyst [place] % (Auto) Air Pollution Analyst Eos % (Auto) Air Pollution Analyst Baso % (Auto) Air Pollution Analyst Neut # (Auto) Air Pollution Analyst Lymph # (Auto) Air Pollution Analyst [place] # (Auto) Air Pollution Analyst Eos # (Auto) Air Pollution Analyst Baso # (Auto) Air Pollution Analyst Total Counted 100 Seg Neutrophils % 14.0 L (38-70) % Band Neutrophils % 2.0 L (3-7) % Lymphocytes % (Manual) 82.0 H (25-45) % Monocytes % (Manual) 2.0 (2-11) % Neutrophils # (Manual) 7184 H (6450-8628) /uL RBC Morphology See below Poikilocytosis 1+ H Sodium 139 (137-145) mmol/L Potassium 4.8 (3.4-5.1) mmol/L Chloride 110 H (98-107) mmol/L Carbon Dioxide 18 L (22-32) mmol/L BUN 62 H (9-20) mg/dL Creatinine 2.70 H (0.66-1.25) mg/dL Estimated GFR 22.7 L (>60) mL/min BUN/Creatinine Ratio 23.0 H (6-22) Glucose 85 (80-110) mg/dL Lactate 0.7 (0.7-2.1) mmol/L Calcium 9.4 (8.4-10.2) mg/dL Total Bilirubin 0.2 (0.2-1.3) mg/dL AST 17 (17-59) IU/L ALT 16 L (21-72) IU/L Alkaline Phosphatase 70 (38-126) U/L Total Protein 6.0 L (6.3-8.2) g/dL Albumin 3.7 (3.5-5.0) g/dL Globulin 2.3 (1.7-4.1) g/dL Albumin/Globulin Ratio 1.6 (1.0-2.8) Amylase 70 (30-110) U/L Lipase 290 (23-300) U/L Discharge Plan Departure Patient Disposition: Home Clinical Impression: Acute dehydration, Elevated BUN, Creatinine elevation Discharge Date/Time: 03/02/19 18:42 Interventions: ED Discharge Assessment Last Done: 03/02/19 18:42 Instructions: DI for Dehydration -- Adult Activity Restrictions/Additional Instructions: I spoke with Dr. Francis regarding your labs. He has ordered outpatient labs to be done after 8:00 a.m. tomorrow. Please get these done. Please take small amounts of fluids as you are able. Please follow up with Dr. Diaz as soon as possible. Please come back to the emergency department for any acute concerns. Prescriptions: No Action clopidogrel [Plavix] 75 mg tablet 75 mg PO DAILY RF: 0 tamsulosin 0.4 mg capsule 0.4 mg PO DAILY Qty: 30 RF: 3 ibrutinib 560 mg Tablet 560 mg PO DAILY Qty: 30 RF: 11 aspirin 81 mg Tablet,Delayed Release (Dr/Ec) 81 mg PO DAILY RF: 0 Referrals: Nicko Diaz MD [Primary Care Provider] - <Jenny Parrish DO - Last Filed: 03/10/19 07:09> Cosign ED Attending Cosignature Attestation: I was immediately available in the department for consultation. This documentation has been reviewed and I agree with assessment and plan. Supervised by Jenny Parrish DO
== END 2019-03-02 18:42 | disposition home or self-care (01) ==
PROVIDERS: Emergency Provider Nurse Practitioner Family; PCP Internal Medicine
DX: E86.0 Dehydration (principal); R79.9 Abnormal finding of blood chemistry, unspecified
CPT/HCPCS: 36415; 80053; 82150; 83605; 83690; 85025; 96360; 96361; 99283; 99284

== ENCOUNTER → 2019-03-03 08:44 | Outpatient (CLI) | payer OTHER, SELFPAY ==
[2019-03-03 09:29] LABS: Add Manual Diff / Slide Review NO; Basophils Absolute Auto 200 /uL (0-100); Basophils Percent Auto 0.4 % (0-2); Eosinophils Absolute Auto 1000 /uL (0-450); Eosinophils Percent Auto 1.9 % (2-4); Hematocrit 29.3 % (41-53); Hemoglobin 9.1 g/dL (13.5-17.5); Lymphocytes Absolute Auto 39100 /uL (1100-4500); Lymphocytes Percent Auto 79.9 % (25-40); Mean Corpuscular HGB Conc 31.1 % (30-36); Mean Corpuscular Volume 102.8 fL (80-100); Monocytes Absolute Auto 1200 /uL (0-900); Monocytes Percent Auto 2.4 % (3-14); Neutrophils Absolute Auto 7500 /uL (1500-7000); Neutrophils Percent Auto 15.4 % (50-75); Platelet Count 181 X10^3/uL (150-400); Red Blood Cell Count 2.85 X10^6/uL (4.5-5.9); Red Cell Distribution Width 13.9 % (11.6-14.8)
[2019-03-03 09:31] LABS: BUN Creatinine Ratio 22.7 (6-22); Blood Urea Nitrogen 59 mg/dL (9-20); Calcium 9.5 mg/dL (8.4-10.2); Carbon Dioxide 16 mmol/L (22-32); Chloride 113 mmol/L (98-107); Estimated Glomerular Filt Rate 23.7 mL/min (>60); Glucose 91 mg/dL (80-110); HEMOLYSIS < 15 (0-50); Potassium 5.3 mmol/L (3.4-5.1); Sodium 141 mmol/L (137-145)
[2019-03-03 10:20] LABS: White Blood Cell Count 48.9 X10^3/uL (4.5-11.0)
== END ==
PROVIDERS: Family Provider Internal Medicine; PCP Internal Medicine; Visit Provider Family Medicine
DX: C83.10 Mantle cell lymphoma, unspecified site (principal)
CPT/HCPCS: 36415; 80048; 85025

== ENCOUNTER → 2019-03-07 12:11 | Outpatient (CLI) | payer OTHER, SELFPAY ==
[2019-03-07 12:44] LABS: Hemoglobin 8.4 g/dL (13.5-17.5); Mean Corpuscular HGB Conc 31.2 % (30-36); Mean Corpuscular Hemoglobin 31.5 PG (26-34); Mean Corpuscular Volume 100.8 fL (80-100); Platelet Count 183 X10^3/uL (150-400); Red Blood Cell Count 2.68 X10^6/uL (4.5-5.9); Red Cell Distribution Width 13.7 % (11.6-14.8)
[2019-03-07 12:54] LABS: Total Cells Counted 100
[2019-03-07 12:55] LABS: Anisocytosis 2+; Macrocytosis 2+; Poikilocytosis 1+
[2019-03-07 13:05] LABS: Blood Urea Nitrogen 52 mg/dL (9-20); Calcium 9.2 mg/dL (8.4-10.2); Carbon Dioxide 18 mmol/L (22-32); Chloride 110 mmol/L (98-107); Estimated Glomerular Filt Rate 23.7 mL/min (>60); Glucose 111 mg/dL (80-110); HEMOLYSIS < 15 (0-50); Potassium 4.4 mmol/L (3.4-5.1); Sodium 139 mmol/L (137-145)
[2019-03-07 13:11] LABS: Neutrophils Absolute Manual 5280 /uL (3000-5900); White Blood Cell Count 52.8 X10^3/uL (4.5-11.0)
== END ==
PROVIDERS: Family Provider Internal Medicine; PCP Internal Medicine; Visit Provider Family Medicine
DX: R79.89 Other specified abnormal findings of blood chemistry (principal)
CPT/HCPCS: 36415; 80048; 85025

== ENCOUNTER → 2019-03-09 10:47 | Oncology outpatient (ONC) | payer OTHER, SELFPAY ==
[2018-09-25 14:54] VITALS: BP 132/70; PULSE 73; RESP 18; TEMP 36.4; O2SAT 98
--- NOTE | 2018-09-25 17:03 | ONC.PN ---
PN -Subjective Interval history: 83-year-old gentleman with low grade mantle cell lymphoma, that was diagnosed after biopsy of a blue, spongy, vascular mass over the posterior hard palate in 04/2010. Patient received chemotherapy including bendamustine and Rituxan followed by 4 additional cycles of maintenance Rituxan, that had to be discontinued in 09/2012 due to instability of gait which has since resolved. He suffered a recurrence of mantle cell lymphoma confirmed by an ileostomy sidewall biopsy of an irritative growth on 03/02/2016. The patient went on to receive additional bendamustine/Rituxan completed December 2016. According to the patient, his stoma symptoms improved with the chemotherapy. I believe that probably since after the chemotherapy, patient has noticed the growth has been slowly growing. Initially it was a size of 3-4 cm, now it has grown to the size of a golf ball and it is very hard. Patient said that sometimes the growth closes off the stoma especially after he ingests solid food. Patient said that he usually would develop symptoms including pain, but denies any nausea or vomiting. On 12/29/2017, CT of the neck, chest abdomen and pelvis showed no overt evidence of gross evidence of lymphoma. Patient underwent a repeat ileostomy sidewall biopsy on 01/20/2018. The immunohistochemistry staining was suggestive of infiltrative mantle cell lymphoma. Dr. Alarcon saw the patient at the time, and discussed with the patient about chemotherapy as well as possible radiation treatment. However patient did not show any interest in further chemotherapy and today he admitted that he decided himself not to proceed with further follow-up at our cancer center. Recently he was evaluated by his primary care provider Nicko Diaz. Dr. Diaz persuaded him to come to our clinic for further evaluation as the growth at the stoma has been slowly growing with some tenderness and occasionally bleeding. Patient is here accompanied by his . Patient denies fever or chills, denies nausea or vomiting, denies shortness of breath, denies abdominal pain and denies weight loss. - Additional ROS All systems PM: reviewed and no additional remarkable complaints except as stated Home Medications and Allergies Home Medications Medication Instructions Recorded Confirmed Type lisinopril 10 mg PO QDAY #0 12/01/17 09/11/18 History metoprolol succinate 50 mg PO QDAY #30 ter 12/01/17 09/11/18 Rx simvastatin 80 mg PO HS #60 tab 12/01/17 09/11/18 Rx clopidogrel 75 mg tablet 75 mg PO DAILY 08/10/18 09/11/18 History Allergies Allergy/AdvReac Type Severity Reaction Status Date / Time No Known Allergies Allergy Uncoded 09/11/18 11:19 Exam Vital signs: Last Vital Signs Temp 97.5 F L 09/25/18 14:54 Pulse 73 09/25/18 14:54 Resp 18 09/25/18 14:54 BP 132/70 09/25/18 14:54 Pulse Ox 98 09/25/18 14:54 ECOG 1 - Constitutional positive no acute distress, positive average body habitus, positive cooperative - Routine HEENT Exam Head: Present: normocephalic, atraumatic Eye: Present: EOMI, PERRL, normal accommodation. Absent: conjunctival icterus ENT: Present: mucous membranes moist - Routine Neck Exam Present: supple, full ROM. Absent: lymphadenopathy, thyromegaly, tenderness, swelling - Routine Respiratory Exam Present: Clear to auscultation bilaterally - Routine Cardiovascular Exam Present: RRR, S1, S2. Absent: murmur, gallop, rubs, S3 - Routine Abdominal Exam Present: soft, normoactive bowel sounds, ostomy (A dark red golf ball size tumor protruding from the ostomy noted. ). Absent: distended, organomegaly - Routine Extremities Exam Absent: edema - Routine Neurological Exam Present: alert, oriented X3, CN II-XII intact. Absent: sensory deficit, motor deficit - Routine Psychiatric Exam Present: normal affect, normal thought process, cooperative, good insight, good judgment Results - Labs Pathology report reviewed. - Imaging Additional studies: Procedures Injection or infusion of other therapeutic or prophylactic substance (02/08/14) Assessment and Plan (1) Mantle cell lymphoma Problem details: Low grade mantle cell lymphoma dianosed after biopsy of mass at posterior hard palate in 04/2010. He was treated with bendamustine and Rituxan followed by 4 additional cycles of maintenance Rituxan, that had to be discontinued in 09/2012 due to instability of gait which has since resolved. Recurrence of mantle cell lymphoma confirmed by an ileostomy sidewall biopsy of an irritative growth on 03/02/2016. The patient underwent repeat bendamustine/Rituxan completed December 2016. Now with continued slow growing of the ileostomy mass, biopsy of which in 01/20/2018 confirmed recurrence of mantle cell lymphoma. Assessment I had a long discussion with patient and his . I explained to him that MCL is a systemic disease and systemic therapy is usually recommended. We also use radiation therapy for palliative local purposes. Before any systemic therapy, a through and complete evaluation of the extent of the underlying mantle cell lymphoma is required. I recommended PET/CT. As for systemic therapy, I briefly touched base with him about ibrutinib and/or venetoclax. Clinical trials have showed excellent response. Furthermore, they are oral medications. Patient is very much worried about the co-pay cost. He understood that the medications usually a very expensive. I talked with the patient that we can touch base with our clinical social work aide Elizabeth to help with the financial issues. Plan 1. PET/CT 2. Referral to radiation oncology for evaluation 3. RTC after scan.
[2018-10-06 10:13] VITALS: BP 119/79; PULSE 82; RESP 16; TEMP 36.4; O2SAT 98
--- NOTE | 2018-10-06 11:12 | ONC.PN ---
PN -Subjective Interval history: Patient underwent PET-CT on 10/04/2018 that showed soft tissue nodules in the right ileostomy site with increased FDG activity consistent with recurrent lymphoma, numerous new and mildly enlarged/normal sized lymph nodes involving the left neck, supraclavicular region, mediastinum, mesenteric, and retroperitoneum demonstrating mildly increased uptake concerning for recurrence of lymphoma. Patient saw Dr. Nicko Wiseman at [facility] on 10/05/2018. Dr. Wiseman recommended consideration for palliative radiation directed at the PET/CT positive masses. Dr. Wiseman thought that the potential benefits from palliative radiation exceeded the potential risks form radiation toxicity. Patient himself is not determined yet. He presents here today for continued discussion. Oncological History 83-year-old gentleman with low grade mantle cell lymphoma, that was diagnosed after biopsy of a blue, spongy, vascular mass over the posterior hard palate in 04/2010. Patient received chemotherapy including bendamustine and Rituxan followed by 4 additional cycles of maintenance Rituxan, that had to be discontinued in 09/2012 due to instability of gait which has since resolved. He suffered a recurrence of mantle cell lymphoma confirmed by an ileostomy sidewall biopsy of an irritative growth on 03/02/2016. The patient went on to receive additional bendamustine/Rituxan completed December 2016. According to the patient, his stoma symptoms improved with the chemotherapy. I believe that probably since after the chemotherapy, patient has noticed the growth has been slowly growing. Initially it was a size of 3-4 cm, now it has grown to the size of a golf ball and it is very hard. Patient said that sometimes the growth closes off the stoma especially after he ingests solid food. Patient said that he usually would develop symptoms including pain, but denies any nausea or vomiting. On 12/29/2017, CT of the neck, chest abdomen and pelvis showed no overt evidence of gross evidence of lymphoma. Patient underwent a repeat ileostomy sidewall biopsy on 01/20/2018. The immunohistochemistry staining was suggestive of infiltrative mantle cell lymphoma. Dr. Alarcon saw the patient at the time, and discussed with the patient about chemotherapy as well as possible radiation treatment. However patient did not show any interest in further chemotherapy and today he admitted that he decided himself not to proceed with further follow-up at our cancer center. Recently he was evaluated by his primary care provider Nicko Diaz. Dr. Diaz persuaded him to come to our clinic for further evaluation as the growth at the stoma has been slowly growing with some tenderness and occasionally bleeding. Patient is here accompanied by his . Patient denies fever or chills, denies nausea or vomiting, denies shortness of breath, denies abdominal pain and denies weight loss. - Additional ROS All systems PM: reviewed and no additional remarkable complaints except as stated Home Medications and Allergies Home Medications Medication Instructions Recorded Confirmed Type lisinopril 10 mg PO QDAY #0 12/01/17 09/11/18 History metoprolol succinate 50 mg PO QDAY #30 ter 12/01/17 09/11/18 Rx simvastatin 80 mg PO HS #60 tab 12/01/17 09/11/18 Rx clopidogrel 75 mg tablet 75 mg PO DAILY 08/10/18 09/11/18 History Allergies Allergy/AdvReac Type Severity Reaction Status Date / Time No Known Allergies Allergy Uncoded 09/11/18 11:19 Exam Vital signs: Last Vital Signs Temp 97.6 F 10/06/18 10:13 Pulse 82 10/06/18 10:13 Resp 16 10/06/18 10:13 BP 119/79 10/06/18 10:13 Pulse Ox 98 10/06/18 10:13 ECOG 1 Narrative: Constitutional: WDWN, NAD, average body habitus, well groomed, pleasant and cooperative. HEENT: NCAT, EOMI, PERRLA, anicteric sclera, no hearing difficulty; Oral mucus membrane moist and without ulcers. Neck: Supple, symmetrical, and tracheal midline; A group of 0.5 cm lymph nodes palpable in the left supraclavicular fosa (Level 4/5). Respiratory: No use of accessory muscles. Clear to auscultation, and no wheezes or rales or rubs. Cardiovascular: Regular rate and rhythm, S1 and S2 normal, no murmurs gallops or rubs. No JVD. No pitting edema of lower extremities. Abdomen: Soft, nontender, non-distended, bowel sounds normal, no palpable organomegaly. Ileostomy noted with a protruding pink soft tissue mass about the size of a golf ball noted. No bleeding. Lower extremities: No palpable pedal edema. Lymphatic: lymphadenopathy in the neck ( see above). no palpable lymph nodes in the axillae, or groins. Musculoskeletal: normal gait and station, no clubbing, no cyanosis, no pitting edema. Skin: no rashes, no ulcers, no petechiae Neurological: Awake and alert and oriented x3. CN II-XII grossly intact. No focal motor or sensory deficit. Psychiatric: Good judgment, good insight, normal affect, normal thought process, cooperative, no depression, no anxiety. Results - Labs Reviewed - Imaging Additional studies: Procedures Injection or infusion of other therapeutic or prophylactic substance (02/08/14) Assessment and Plan (1) Mantle cell lymphoma Problem details: Low grade mantle cell lymphoma dianosed after biopsy of mass at posterior hard palate in 04/2010, status post bendamustine and Rituxan followed by 4 cycles of maintenance Rituxan discontinued in 09/2012 due to instability of gait which has since resolved. Recurrence of mantle cell lymphoma confirmed by an ileostomy sidewall biopsy of an irritative growth on 03/02/2016, status post bendamustine/Rituxan completed December 2016. Now with continued slow growing of the ileostomy mass, biopsy of which in 01/20/2018 confirmed recurrence of mantle cell lymphoma. Assessment: I reviewed the PET scan results with the patient. I agree with Dr. Nicko Wiseman that radiation treatment might be of some palliative benefit in terms of controlling the locally recurrent mantle cell lymphoma at the ostomy site. However the PET-CT mentioned mildly but new lymphadenopathy involving multiple sites including neck, mediastinum and retroperitoneum. There are new even though they are not bulky by size. I believe they most likely represent recurrent mantle cell lymphoma. I talked with the patient that mantle cell lymphoma is a systemic disease. If it affects lymph nodes both above and below the diaphragm, it is at least stage III, and maybe stage IV given the extranodal involvement. I showed the patient the PET scan results and NCCN guidelines for mantle cell lymphoma. I recommended further workup including bone marrow aspiration biopsy while at the same time patient should get palliative radiotherapy. I recommended treatment with venetoclax and ibrutinib. The rate of complete response as assessed by PET was 62% at week 16 and 71% overall (Asif Curry et al. [facility] 2018; [id number]) The patient is undecided about the systemic therapy at this moment. However he agrees to proceed with radiation treatment and he will contact Dr. Nicko Wiseman. I have scheduled the patient to come back after the new year and we will proceed with bone marrow aspiration biopsy first and we talked with him about the systemic therapy. Plan 1. Follow up with Dr. Nicko Gong for palliative therapy 2. RTC in one month, BMA/Bx.
--- NOTE | 2018-10-06 11:16 | P.PNONC_ITS ---
PN -Subjective Interval history: Patient underwent PET-CT on 10/04/2018 that showed soft tissue nodules in the right ileostomy site with increased FDG activity consistent with recurrent lymphoma, numerous new and mildly enlarged/normal sized lymph nodes involving the left neck, supraclavicular region, mediastinum, mesenteric, and retroperitoneum demonstrating mildly increased uptake concerning for recurrence of lymphoma. Patient saw Dr. Nicko Wiseman at [facility] on 2017. Dr. Wiseman recommended consideration for palliative radiation directed at the PET/CT positive masses. Dr. Wiseman thought that the potential benefits from palliative radiation exceeded the potential risks form radiation toxicity. Patient himself is not determined yet. He presents here today for continued discussion. Oncological History 83-year-old gentleman with low grade mantle cell lymphoma, that was diagnosed after biopsy of a blue, spongy, vascular mass over the posterior hard palate in 04/2010. Patient received chemotherapy including bendamustine and Rituxan followed by 4 additional cycles of maintenance Rituxan, that had to be discontinued in 09/2012 due to instability of gait which has since resolved. He suffered a recurrence of mantle cell lymphoma confirmed by an ileostomy sidewall biopsy of an irritative growth on 03/02/2016. The patient went on to receive additional bendamustine/Rituxan completed December 2016. According to the patient, his stoma symptoms improved with the chemotherapy. I believe that probably since after the chemotherapy, patient has noticed the growth has been slowly growing. Initially it was a size of 3-4 cm, now it has grown to the size of a golf ball and it is very hard. Patient said that sometimes the growth closes off the stoma especially after he ingests solid food. Patient said that he usually would develop symptoms including pain, but denies any nausea or vomiting. On 12/29/2017, CT of the neck, chest abdomen and pelvis showed no overt evidence of gross evidence of lymphoma. Patient underwent a repeat ileostomy sidewall biopsy on 01/20/2018. The immunohistochemistry staining was suggestive of infiltrative mantle cell lymphoma. Dr. Alarcon saw the patient at the time, and discussed with the patient about chemotherapy as well as possible radiation treatment. However patient did not show any interest in further chemotherapy and today he admitted that he decided himself not to proceed with further follow -up at our cancer center. Recently he was evaluated by his primary care provider Nicko Diaz. Dr. Diaz persuaded him to come to our clinic for further evaluation as the growth at the stoma has been slowly growing with some tenderness and occasionally bleeding. Patient is here accompanied by his . Patient denies fever or chills, denies nausea or vomiting, denies shortness of breath, denies abdominal pain and denies weight loss. - Additional ROS All systems PM: reviewed and no additional remarkable complaints except as stated Home Medications and Allergies Home Medications Medication Instructions Recorded Confirmed Type lisinopril 10 mg PO QDAY #0 12/01/17 09/11/18 History metoprolol succinate 50 mg PO QDAY #30 ter 12/01/17 09/11/18 Rx simvastatin 80 mg PO HS #60 tab 12/01/17 09/11/18 Rx clopidogrel 75 mg tablet 75 mg PO DAILY 08/10/18 09/11/18 History Allergies Allergy/AdvReac Type Severity Reaction Status Date / Time No Known Allergies Allergy Uncoded 09/11/18 11:19 Exam Vital signs: Last Vital Signs Temp 97.6 F 10/06/18 10:13 Pulse 82 10/06/18 10:13 Resp 16 10/06/18 10:13 BP 119/79 10/06/18 10:13 Pulse Ox 98 10/06/18 10:13 ECOG 1 Narrative: Constitutional: WDWN, NAD, average body habitus, well groomed, pleasant and cooperative. HEENT: NCAT, EOMI, PERRLA, anicteric sclera, no hearing difficulty; Oral mucus membrane moist and without ulcers. Neck: Supple, symmetrical, and tracheal midline; A group of 0.5 cm lymph nodes palpable in the left supraclavicular fosa (Level 4/5). Respiratory: No use of accessory muscles. Clear to auscultation, and no wheezes or rales or rubs. Cardiovascular: Regular rate and rhythm, S1 and S2 normal, no murmurs gallops or rubs. No JVD. No pitting edema of lower extremities. Abdomen: Soft, nontender, non-distended, bowel sounds normal, no palpable organomegaly. Ileostomy noted with a protruding pink soft tissue mass about the size of a golf ball noted. No bleeding. Lower extremities: No palpable pedal edema. Lymphatic: lymphadenopathy in the neck ( see above). no palpable lymph nodes in the axillae, or groins. Musculoskeletal: normal gait and station, no clubbing, no cyanosis, no pitting edema. Skin: no rashes, no ulcers, no petechiae Neurological: Awake and alert and oriented x3. CN II-XII grossly intact. No focal motor or sensory deficit. Psychiatric: Good judgment, good insight, normal affect, normal thought process , cooperative, no depression, no anxiety. Results - Labs Reviewed - Imaging Additional studies: Procedures Injection or infusion of other therapeutic or prophylactic substance (02/08/14) Assessment and Plan (1) Mantle cell lymphoma Problem details: Low grade mantle cell lymphoma dianosed after biopsy of mass at posterior hard palate in 04/2010, status post bendamustine and Rituxan followed by 4 cycles of maintenance Rituxan discontinued in 09/2012 due to instability of gait which has since resolved. Recurrence of mantle cell lymphoma confirmed by an ileostomy sidewall biopsy of an irritative growth on , status post bendamustine/Rituxan completed December 2016. Now with continued slow growing of the ileostomy mass, biopsy of which in 01/20/2018 confirmed recurrence of mantle cell lymphoma. Assessment: I reviewed the PET scan results with the patient. I agree with Dr. Nicko Wiseman that radiation treatment might be of some palliative benefit in terms of controlling the locally recurrent mantle cell lymphoma at the ostomy site. However the PET-CT mentioned mildly but new lymphadenopathy involving multiple sites including neck, mediastinum and retroperitoneum. There are new even though they are not bulky by size. I believe they most likely represent recurrent mantle cell lymphoma. I talked with the patient that mantle cell lymphoma is a systemic disease. If it affects lymph nodes both above and below the diaphragm, it is at least stage III, and maybe stage IV given the extranodal involvement. I showed the patient the PET scan results and NCCN guidelines for mantle cell lymphoma. I recommended further workup including bone marrow aspiration biopsy while at the same time patient should get palliative radiotherapy. I recommended treatment with venetoclax and ibrutinib. The rate of complete response as assessed by PET was 62% at week 16 and 71% overall (Asif Curry et al. [facility] 2018; [id number]) The patient is undecided about the systemic therapy at this moment. However he agrees to proceed with radiation treatment and he will contact Dr. Nicko Wiseman. I have scheduled the patient to come back after the new year and we will proceed with bone marrow aspiration biopsy first and we talked with him about the systemic therapy. Plan 1. Follow up with Dr. Nicko Gong for palliative therapy 2. RTC in one month, BMA/Bx.
--- NOTE | 2018-11-09 15:14 | ONC.PROCEDUR ---
Date of procedure: 11/09/18 Diagnosis: Mantel cell lymphoma Onc Bone Marrow: bone marrow biopsy and aspiration Procedure: Patient was instructed to lie on his left side. Right posterior iliac crest was prepped, draped, and sterilized per standard aseptic procedure. Local anesthesia was obtained by injection of 2% lidocaine. Bone marrow aspiration needle was inserted without difficulties. I aspirated about 20 cc of bone marrow and handed over the table for perforation of slides and samples. Then I inserted the [employer] bone marrow biopsy needle and obtained a 2 cm long bone marrow sample. Patient tolerated the procedure well. No immediate complications.
[2018-11-09 15:45] LABS: Add Manual Diff / Slide Review NO; Basophils Percent Auto 0.4 % (0-2); Hematocrit 34.4 % (41-53); Hemoglobin 11.6 g/dL (13.5-17.5); Lymphocytes Percent Auto 45.7 % (25-40); Mean Corpuscular HGB Conc 33.8 % (30-36); Mean Corpuscular Hemoglobin 33.8 PG (26-34); Mean Corpuscular Volume 100.1 fL (80-100); Monocytes Percent Auto 2.8 % (3-14); Neutrophils Absolute Auto 7600 /uL (1500-7000); Neutrophils Percent Auto 37.1 % (50-75); Platelet Count 240 X10^3/uL (150-400); Red Blood Cell Count 3.44 X10^6/uL (4.5-5.9); Red Cell Distribution Width 13.1 % (11.6-14.8); White Blood Cell Count 20.4 X10^3/uL (4.5-11.0)
[2018-11-09 16:52] VITALS: BP 107/58; PULSE 74; RESP 18; O2SAT 95
--- NOTE | 2018-11-24 10:38 | ONC.PN ---
PN -Subjective Interval history: On 11/09/2018, as part of the staging process patient underwent bone marrow aspiration biopsy. At the bone marrow aspiration biopsy showed involvement by the known mantle cell lymphoma. Patient presents here today (11/24/2018) to follow up on the biopsy report. Patient is currently receiving palliative radiotherapy towards the mass at the ostomy site. Patient has already received about 2 weeks of treatment. The plan is to receive overall [address] Nicko Richard progress note. Patient said after the start of the radiation treatment, patient has noticed significant stomach upset, loss of appetite, and fatigue. He said that he even could not stand up to shave. After radiation therapy, the mass is likely shrinking. He reports no fever, and no chills. He is complaining of shortness of breath all the time, especially on exertion. After resting a while, it usually gets better. He reports no chest pain. He has mild non-productive cough. He is having watery diarrhea. Occasionally, he saw blood in the ostomy bag only when he took the appliance off. He denies swelling of the legs. Oncological History 83-year-old gentleman with low grade mantle cell lymphoma, that was diagnosed after biopsy of a blue, spongy, vascular mass over the posterior hard palate in 04/2010. Patient received chemotherapy including bendamustine and Rituxan followed by 4 additional cycles of maintenance Rituxan, that had to be discontinued in 09/2012 due to instability of gait which has since resolved. He suffered a recurrence of mantle cell lymphoma confirmed by an ileostomy sidewall biopsy of an irritative growth on 03/02/2016. The patient went on to receive additional bendamustine/Rituxan completed December 2016. According to the patient, his stoma symptoms improved with the chemotherapy. I believe that probably since after the chemotherapy, patient has noticed the growth has been slowly growing. Initially it was a size of 3-4 cm, now it has grown to the size of a golf ball and it is very hard. Patient said that sometimes the growth closes off the stoma especially after he ingests solid food. Patient said that he usually would develop symptoms including pain, but denies any nausea or vomiting. On 12/29/2017, CT of the neck, chest abdomen and pelvis showed no overt evidence of gross evidence of lymphoma. Patient underwent a repeat ileostomy sidewall biopsy on 01/20/2018. The immunohistochemistry staining was suggestive of infiltrative mantle cell lymphoma. Dr. Alarcon saw the patient at the time, and discussed with the patient about chemotherapy as well as possible radiation treatment. However patient did not show any interest in further chemotherapy In 07/2018, he was evaluated by his primary care provider Nicko Diaz. Dr. Diaz persuaded him to come to our clinic for further evaluation as the growth at the stoma has been slowly growing with some tenderness and occasionally bleeding. He then underwent PET-CT on 10/04/2018 that showed soft tissue nodules in the right ileostomy site with increased FDG activity consistent with recurrent lymphoma, numerous new and mildly enlarged/normal sized lymph nodes involving the left neck, supraclavicular region, mediastinum, mesenteric, and retroperitoneum demonstrating mildly increased uptake concerning for recurrence of lymphoma. Patient saw Dr. Nicko Wiseman at [facility] on 10/05/2018. Dr. Wiseman recommended consideration for palliative radiation directed at the PET/CT positive masses. Dr. Wiseman thought that the potential benefits from palliative radiation exceeded the potential risks form radiation toxicity. Home Medications and Allergies Home Medications Medication Instructions Recorded Confirmed Type lisinopril 10 mg PO QDAY #0 12/01/17 09/11/18 History metoprolol succinate 50 mg PO QDAY #30 ter 12/01/17 09/11/18 Rx simvastatin 80 mg PO HS #60 tab 12/01/17 09/11/18 Rx clopidogrel 75 mg tablet 75 mg PO DAILY 08/10/18 09/11/18 History Allergies Allergy/AdvReac Type Severity Reaction Status Date / Time No Known Drug Allergies Allergy Verified 11/24/18 10:57 Exam Vital signs: Last Vital Signs Temp 97.8 F 11/24/18 10:53 Pulse 113 H 11/24/18 10:53 Resp 19 11/24/18 10:53 BP 110/66 11/24/18 10:53 Pulse Ox 95 11/09/18 16:52 ECOG 2 Narrative: Constitutional: WDWN, NAD, average body habitus, well groomed, pleasant and cooperative. Accompanied by his HEENT: NCAT, EOMI, PERRLA, anicteric sclera, no hearing difficulty; Oral mucus membrane moist and without ulcers. Neck: Supple, symmetrical, and tracheal midline; A group of 0.5 cm lymph nodes palpable in the left supraclavicular fosa (Level 4/5). Respiratory: No use of accessory muscles. Clear to auscultation, and no wheezes or rales or rubs. Cardiovascular: Regular rate and rhythm, S1 and S2 normal, no murmurs gallops or rubs. No JVD. Abdomen: Soft, nontender, non-distended, bowel sounds normal, no palpable organomegaly. Ileostomy noted with a protruding pink soft tissue mass about the size of a golf ball noted. No bleeding. Lower extremities: No pitting edema of lower extremities. Lymphatic: lymphadenopathy in the neck ( see above). no palpable lymph nodes in the axillae, or groins. Musculoskeletal: normal gait and station, no clubbing, no cyanosis, no pitting edema. Skin: no rashes, no ulcers, no petechiae Neurological: Awake and alert and oriented x3. CN II-XII grossly intact. No focal motor or sensory deficit. Psychiatric: Good judgment, good insight, normal affect, normal thought process, cooperative, no depression, no anxiety. Results - Imaging Additional studies: Procedures Injection or infusion of other therapeutic or prophylactic substance (02/08/14) Assessment and Plan (1) Mantle cell lymphoma Problem details: Low grade mantle cell lymphoma dianosed after biopsy of mass at posterior hard palate in 04/2010, status post bendamustine and Rituxan followed by 4 cycles of maintenance Rituxan discontinued in 09/2012 due to instability of gait which has since resolved. Recurrence of mantle cell lymphoma confirmed by an ileostomy sidewall biopsy of an irritative growth on 03/02/2016, status post bendamustine/Rituxan completed December 2016. Now with continued slow growing of the ileostomy mass, biopsy of which in 01/20/2018 confirmed recurrence of mantle cell lymphoma. Assessment: I reviewed the pathology of the bone marrow aspiration biopsy results with the patient. I pointed out that they are 25-30% abnormal mantle cell lymphoma cells in the bone marrow samples. It is consistent with involvement by the mantle cell lymphoma. Then, I took time once again and discussed with the patient and patient's in greater details about the overall plan for treatment of mantle cell lymphoma. First of all I talked with them that his mantle cell lymphoma is stage IV with involvement of lymph nodes both above and below the diaphragm and also with extra jolly involvement. I we emphasized that there have been new development in treating mantle cell lymphoma with new medications. Most of them actually is oral medications. And clinical trials have shown that the oral regimen fares better than previous traditional chemotherapy (venetoclax and ibrutinib. The rate of complete response as assessed by PET was 62% at week 16 and 71% overall Asif Curry et al. [facility] 2018; [id number]). Patient again seems to be undecided. One of his concerns is the high cost of the treatment. In addition he thought that the disease is incurable and why not just go naturally. I recommended that he discuss and engage in conversation with our SCHEDULING SPECIALIST, Elizabeth VAZQUEZ for these issues. Plan 1. Follow up with Dr. Nicko Wiseman and continue XRT 2. RTC in one week for more discussion. 3. SCHEDULING SPECIALIST Elizabeth to see patient. (2) Failure to thrive Assessment: Patient currently is receiving radiation treatment. Clinically patient is complaining significant fatigue, loss of appetite, exertional shortness breath, diarrhea, and occasional blood at the ostomy site. I explained to the patient the could represent reactions to the radiation treatment, it also could reflect the progression of the underlying mantle cell lymphoma. It also could represent severe dehydration. On 11/15/2018, patient's creatinine level was 2.02 at [facility]. I talked with the patient that we need to obtain laboratory tests stat to evaluate the current status. I will give the patient normal saline 2000 cc iv. Plan: 1. Stat CBC, CMP today 2. NS 2000 cc, iv, 2 hours 3. RTC in one week, CBC, CMP, LDH, B2M
[2018-11-24 10:53] VITALS: BP 110/66; PULSE 113; RESP 19; TEMP 36.6
--- NOTE | 2018-11-24 10:54 | P.PNONC_ITS ---
PN -Subjective Interval history: On 11/09/2018, as part of the staging process patient underwent bone marrow aspiration biopsy. At the bone marrow aspiration biopsy showed involvement by the known mantle cell lymphoma. Patient presents here today (11/24/2018) to follow up on the biopsy report. Patient is currently receiving palliative radiotherapy towards the mass at the ostomy site. Patient has already received about 2 weeks of treatment. The plan is to receive overall [address] Nicko Richard progress note. Patient said after the start of the radiation treatment, patient has noticed significant stomach upset, loss of appetite, and fatigue. He said that he even could not stand up to shave. After radiation therapy, the mass is likely shrinking. He reports no fever, and no chills. He is complaining of shortness of breath all the time, especially on exertion. After resting a while, it usually gets better. He reports no chest pain. He has mild non-productive cough. He is having watery diarrhea. Occasionally, he saw blood in the ostomy bag only when he took the appliance off. He denies swelling of the legs. Oncological History 83-year-old gentleman with low grade mantle cell lymphoma, that was diagnosed after biopsy of a blue, spongy, vascular mass over the posterior hard palate in 04/2010. Patient received chemotherapy including bendamustine and Rituxan followed by 4 additional cycles of maintenance Rituxan, that had to be discontinued in 09/2012 due to instability of gait which has since resolved. He suffered a recurrence of mantle cell lymphoma confirmed by an ileostomy sidewall biopsy of an irritative growth on 03/02/2016. The patient went on to receive additional bendamustine/Rituxan completed December 2016. According to the patient, his stoma symptoms improved with the chemotherapy. I believe that probably since after the chemotherapy, patient has noticed the growth has been slowly growing. Initially it was a size of 3-4 cm, now it has grown to the size of a golf ball and it is very hard. Patient said that sometimes the growth closes off the stoma especially after he ingests solid food. Patient said that he usually would develop symptoms including pain, but denies any nausea or vomiting. On 12/29/2017, CT of the neck, chest abdomen and pelvis showed no overt evidence of gross evidence of lymphoma. Patient underwent a repeat ileostomy sidewall biopsy on 01/20/2018. The immunohistochemistry staining was suggestive of infiltrative mantle cell lymphoma. Dr. Alarcon saw the patient at the time, and discussed with the patient about chemotherapy as well as possible radiation treatment. However patient did not show any interest in further chemotherapy In 07/2018, he was evaluated by his primary care provider Nicko Diaz. Dr. Diaz persuaded him to come to our clinic for further evaluation as the growth at the stoma has been slowly growing with some tenderness and occasionally bleeding. He then underwent PET-CT on 10/04/2018 that showed soft tissue nodules in the right ileostomy site with increased FDG activity consistent with recurrent lymphoma, numerous new and mildly enlarged/normal sized lymph nodes involving the left neck, supraclavicular region, mediastinum, mesenteric, and retroperitoneum demonstrating mildly increased uptake concerning for recurrence of lymphoma. Patient saw Dr. Nicko Wiseman at [facility] on 2017. Dr. Wiseman recommended consideration for palliative radiation directed at the PET/CT positive masses. Dr. Wiseman thought that the potential benefits from palliative radiation exceeded the potential risks form radiation toxicity. Home Medications and Allergies Home Medications Medication Instructions Recorded Confirmed Type lisinopril 10 mg PO QDAY #0 12/01/17 09/11/18 History metoprolol succinate 50 mg PO QDAY #30 ter 12/01/17 09/11/18 Rx simvastatin 80 mg PO HS #60 tab 12/01/17 09/11/18 Rx clopidogrel 75 mg tablet 75 mg PO DAILY 08/10/18 09/11/18 History Allergies Allergy/AdvReac Type Severity Reaction Status Date / Time No Known Drug Allergies Allergy Verified 11/24/18 10:57 Exam Vital signs: Last Vital Signs Temp 97.8 F 11/24/18 10:53 Pulse 113 H 11/24/18 10:53 Resp 19 11/24/18 10:53 BP 110/66 11/24/18 10:53 Pulse Ox 95 11/09/18 16:52 ECOG 2 Narrative: Constitutional: WDWN, NAD, average body habitus, well groomed, pleasant and cooperative. Accompanied by his HEENT: NCAT, EOMI, PERRLA, anicteric sclera, no hearing difficulty; Oral mucus membrane moist and without ulcers. Neck: Supple, symmetrical, and tracheal midline; A group of 0.5 cm lymph nodes palpable in the left supraclavicular fosa (Level 4/5). Respiratory: No use of accessory muscles. Clear to auscultation, and no wheezes or rales or rubs. Cardiovascular: Regular rate and rhythm, S1 and S2 normal, no murmurs gallops or rubs. No JVD. Abdomen: Soft, nontender, non-distended, bowel sounds normal, no palpable organomegaly. Ileostomy noted with a protruding pink soft tissue mass about the size of a golf ball noted. No bleeding. Lower extremities: No pitting edema of lower extremities. Lymphatic: lymphadenopathy in the neck ( see above). no palpable lymph nodes in the axillae, or groins. Musculoskeletal: normal gait and station, no clubbing, no cyanosis, no pitting edema. Skin: no rashes, no ulcers, no petechiae Neurological: Awake and alert and oriented x3. CN II-XII grossly intact. No focal motor or sensory deficit. Psychiatric: Good judgment, good insight, normal affect, normal thought process , cooperative, no depression, no anxiety. Results - Imaging Additional studies: Procedures Injection or infusion of other therapeutic or prophylactic substance (02/08/14) Assessment and Plan (1) Mantle cell lymphoma Problem details: Low grade mantle cell lymphoma dianosed after biopsy of mass at posterior hard palate in 04/2010, status post bendamustine and Rituxan followed by 4 cycles of maintenance Rituxan discontinued in 09/2012 due to instability of gait which has since resolved. Recurrence of mantle cell lymphoma confirmed by an ileostomy sidewall biopsy of an irritative growth on , status post bendamustine/Rituxan completed December 2016. Now with continued slow growing of the ileostomy mass, biopsy of which in 01/20/2018 confirmed recurrence of mantle cell lymphoma. Assessment: I reviewed the pathology of the bone marrow aspiration biopsy results with the patient. I pointed out that they are 25-30% abnormal mantle cell lymphoma cells in the bone marrow samples. It is consistent with involvement by the mantle cell lymphoma. Then, I took time once again and discussed with the patient and patient's in greater details about the overall plan for treatment of mantle cell lymphoma. First of all I talked with them that his mantle cell lymphoma is stage IV with involvement of lymph nodes both above and below the diaphragm and also with extra jolly involvement. I we emphasized that there have been new development in treating mantle cell lymphoma with new medications. Most of them actually is oral medications. And clinical trials have shown that the oral regimen fares better than previous traditional chemotherapy (venetoclax and ibrutinib. The rate of complete response as assessed by PET was 62% at week 16 and 71% overall Asif Curry et al. [facility] 2018; [id number]). Patient again seems to be undecided. One of his concerns is the high cost of the treatment. In addition he thought that the disease is incurable and why not just go naturally. I recommended that he discuss and engage in conversation with our SENSITIZER, Elizabeth VAZQUEZ for these issues. Plan 1. Follow up with Dr. Nicko Wiseman and continue XRT 2. RTC in one week for more discussion. 3. SENSITIZER Elizabeth to see patient. (2) Failure to thrive Assessment: Patient currently is receiving radiation treatment. Clinically patient is complaining significant fatigue, loss of appetite, exertional shortness breath, diarrhea, and occasional blood at the ostomy site. I explained to the patient the could represent reactions to the radiation treatment, it also could reflect the progression of the underlying mantle cell lymphoma. It also could represent severe dehydration. On 11/15/2018, patient's creatinine level was 2.02 at [facility]. I talked with the patient that we need to obtain laboratory tests stat to evaluate the current status. I will give the patient normal saline 2000 cc iv. Plan: 1. Stat CBC, CMP today 2. NS 2000 cc, iv, 2 hours 3. RTC in one week, CBC, CMP, LDH, B2M
--- NOTE | 2018-11-24 10:54 | ONC.SCHED ---
PATHOLOGY PROGRESS: DR HESS REQUESTED FISH ASSAY BE RUN ON BONE MARROW SAMPLE. I CALLED [facility] [phone] AND SPOKE WITH PAULA. HE WILL SEE IF THEY CAN RUN IT AND GET BACK TO ME IF ANYTHING ELSE IS NEEDED.
--- NOTE | 2018-11-24 11:17 | ONC.SCHED ---
PATHOLOGY PROGRESS: ANGY [place]/PAULA AT [facility], REQUIRES A NEW ORDER WITH PARTICULARS OF FISH ASSAY TO BE ORDERED. AWAIT ORDER FROM DR. HESS
[2018-11-24 12:22] LABS: Add Manual Diff / Slide Review NO; Basophils Absolute Auto 100 /uL (0-100); Basophils Percent Auto 0.5 % (0-2); Eosinophils Absolute Auto 500 /uL (0-450); Eosinophils Percent Auto 3.3 % (2-4); Hematocrit 36.6 % (41-53); Hemoglobin 12.2 g/dL (13.5-17.5); Lymphocytes Absolute Auto 7300 /uL (1100-4500); Mean Corpuscular HGB Conc 33.4 % (30-36); Mean Corpuscular Hemoglobin 33.3 PG (26-34); Mean Corpuscular Volume 99.8 fL (80-100); Monocytes Absolute Auto 600 /uL (0-900); Monocytes Percent Auto 3.7 % (3-14); Neutrophils Absolute Auto 6500 /uL (1500-7000); Neutrophils Percent Auto 43.5 % (50-75); Platelet Count 251 X10^3/uL (150-400); Red Blood Cell Count 3.67 X10^6/uL (4.5-5.9); White Blood Cell Count 14.9 X10^3/uL (4.5-11.0)
[2018-11-24] MEDS: SODIUM CHLORIDE 0.9% 1,000 ML 1000 ML IV (12:26)
[2018-11-24 12:33] LABS: Alanine Aminotransferase 28 IU/L (21-72); Albumin 4.5 g/dL (3.5-5.0); Albumin Globulin Ratio 1.5 (1.0-2.8); Alkaline Phosphatase 87 U/L (38-126); Aspartate Aminotransferase 22 IU/L (17-59); BUN Creatinine Ratio 32.4 (6-22); Bilirubin Total 0.4 mg/dL (0.2-1.3); Blood Urea Nitrogen 81 mg/dL (9-20); Calcium 9.9 mg/dL (8.4-10.2); Carbon Dioxide 17 mmol/L (22-32); Chloride 107 mmol/L (98-107); Estimated Glomerular Filt Rate 24.8 mL/min (>60); Glucose 119 mg/dL (80-110); HEMOLYSIS < 15 (0-50); Sodium 136 mmol/L (137-145); Total Protein 7.5 g/dL (6.3-8.2)
--- NOTE | 2018-11-24 13:28 | PC.NURSE ---
Due to hyperkalemia of 6.3 and acute renal failure of 2.50, pt was given 1 liter IVF then transferred to ED per Dr Hicks's request. Trish, church supervisor was notified. Pt escorted to ED by [facility].
--- NOTE | 2018-11-24 13:52 | PC.NURSE ---
Wheeled pt to ER per orders. NO s/s of acute distress at time of transfer. Left IV in.
--- NOTE | 2018-11-24 16:03 | ONC.SCHED ---
PATH PROGRESS: order for FISH panel faxed to [facility].
[2018-11-27 09:31] LABS: Potassium 6.3 mmol/L (3.4-5.1)
--- NOTE | 2018-11-27 16:23 | PC.NURSE ---
LABORATORY FOLLOW-UP Spoke with Doyle at [facility] on 11/27/18 at 4:20pm. [facility] has agreed to do the FISH [id number]. We are expecting the results in about a weeks time. Josie CADENA
--- NOTE | 2018-12-07 12:09 | ONC.SCHED ---
path progress: spoke with Luana at [facility] : fish results have been read and should be signed and faxed in 1 to 2 days.
[2019-01-11 12:20] VITALS: BP 101/60; PULSE 69; RESP 18; TEMP 36.2; O2SAT 98
--- NOTE | 2019-01-11 12:32 | ONC.PN ---
PN -Subjective Interval history: From 11/07/2018, he was started on palliative radiotherapy towards the mass at the ostomy site under the care of Dr Nicko Wiseman. After about 2 weeks of radiation therapy, he was hospitalized for acute kidney failure due to large volume ileostomy fluid output. 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 After hydration, his serum Cr has improved dramatically. His ostomy output also has decreased. Today, he admitted that he has a remote history of C-diff infection. Today, he came in accompanied by his daughter. He said that he is still having watery diarrhea. He has refused to continue and complete the remaining radiation therapy. He would like to know more prognosis information regarding his mantle cell lymphoma to help him decide about if hospice care is appropriate. Oncological History 83-year-old gentleman with low grade mantle cell lymphoma, that was diagnosed after biopsy of a blue, spongy, vascular mass over the posterior hard palate in 04/2010. Patient received chemotherapy including bendamustine and Rituxan followed by 4 additional cycles of maintenance Rituxan, that had to be discontinued in 09/2012 due to instability of gait which has since resolved. He suffered a recurrence of mantle cell lymphoma confirmed by an ileostomy sidewall biopsy of an irritative growth on 03/02/2016. The patient went on to receive additional bendamustine/Rituxan completed December 2016. According to the patient, his stoma symptoms improved with the chemotherapy. I believe that probably since after the chemotherapy, patient has noticed the growth has been slowly growing. Initially it was a size of 3-4 cm, now it has grown to the size of a golf ball and it is very hard. Patient said that sometimes the growth closes off the stoma especially after he ingests solid food. Patient said that he usually would develop symptoms including pain, but denies any nausea or vomiting. On 12/29/2017, CT of the neck, chest abdomen and pelvis showed no overt evidence of gross evidence of lymphoma. Patient underwent a repeat ileostomy sidewall biopsy on 01/20/2018. The immunohistochemistry staining was suggestive of infiltrative mantle cell lymphoma. Dr. Alarcon saw the patient at the time, and discussed with the patient about chemotherapy as well as possible radiation treatment. However patient did not show any interest in further chemotherapy In 07/2018, he was evaluated by his primary care provider Nicko Diaz. Dr. Diaz persuaded him to come to our clinic for further evaluation as the growth at the stoma has been slowly growing with some tenderness and occasionally bleeding. He then underwent PET-CT on 10/04/2018 that showed soft tissue nodules in the right ileostomy site with increased FDG activity consistent with recurrent lymphoma, numerous new and mildly enlarged/normal sized lymph nodes involving the left neck, supraclavicular region, mediastinum, mesenteric, and retroperitoneum demonstrating mildly increased uptake concerning for recurrence of lymphoma. Patient saw Dr. Nicko Wiseman at [facility] on 10/05/2018. Dr. Wiseman recommended consideration for palliative radiation directed at the PET/CT positive masses. Dr. Wiseman thought that the potential benefits from palliative radiation exceeded the potential risks form radiation toxicity. On 11/09/2018, as part of the staging process patient underwent bone marrow aspiration biopsy that showed involvement by the known mantle cell lymphoma. - Patient Self-Reported Symptoms SR Constitution: Fatigue/Malaise SR ears, nose, mouth, throat issues: Cough, Difficulty swallowing, Hoarseness SR respiratory issues: Cough, Shortness of breath SR Cardiovascular issues: Shortness of breath with activity or lying flat, Dizzy/lightheaded SR Gastrointestinal issues: Poor or no appetite SR Musculoskeletal issues: Muscle weakness SR Neuro issues: Lightheaded/dizzy SR Hematologic issues: Swollen lymph nodes - Additional ROS All systems PM: reviewed and no additional remarkable complaints except as stated Home Medications and Allergies Home Medications Medication Instructions Recorded Confirmed Type clopidogrel 75 mg tablet 75 mg PO DAILY 08/10/18 01/04/19 History aspirin 81 mg PO DAILY 11/30/18 01/04/19 History metoprolol succinate 50 mg PO DAILY 11/30/18 01/04/19 History vancomycin 125 mg PO QID #56 cap 12/26/18 01/04/19 Rx Allergies Allergy/AdvReac Type Severity Reaction Status Date / Time No Known Drug Allergies Allergy Verified 01/04/19 11:21 Exam Vital signs: Last Vital Signs Temp 97.1 F L 01/11/19 12:20 Pulse 69 01/11/19 12:20 Resp 18 01/11/19 12:20 BP 101/60 01/11/19 12:20 Pulse Ox 98 01/11/19 12:20 ECOG 1 Narrative: I did not performed physical examination throughout today's information encounter. Results - Labs Laboratory Last Values WBC 14.9 X10^3/uL (4.5-11.0) H 11/24/18 11:29 RBC 3.67 X10^6/uL (4.5-5.9) L 11/24/18 11:29 Hgb 12.2 g/dL (13.5-17.5) L 11/24/18 11:29 Hct 36.6 % (41-53) L 11/24/18 11:29 MCV 99.8 fL (80-100) 11/24/18 11:29 MCH 33.3 PG (26-34) 11/24/18 11:29 MCHC 33.4 % (30-36) 11/24/18 11:29 RDW 13.0 % (11.6-14.8) 11/24/18 11:29 Plt Count 251 X10^3/uL (150-400) 11/24/18 11:29 Neut % (Auto) 43.5 % (50-75) L 11/24/18 11:29 Lymph % (Auto) 49.0 % (25-40) H 11/24/18 11:29 [place] % (Auto) 3.7 % (3-14) 11/24/18 11:29 Eos % (Auto) 3.3 % (2-4) 11/24/18 11:29 Baso % (Auto) 0.5 % (0-2) 11/24/18 11:29 Neut # (Auto) 6500 /uL (7931-4211) 11/24/18 11:29 Lymph # (Auto) 7300 /uL (4138-0578) H 11/24/18 11:29 [place] # (Auto) 600 /uL (0-900) 11/24/18 11:29 Eos # (Auto) 500 /uL (0-450) H 11/24/18 11:29 Baso # (Auto) 100 /uL (0-100) 11/24/18 11:29 Sodium 136 mmol/L (137-145) L 11/24/18 11:29 Potassium 6.3 mmol/L (3.4-5.1) H* 11/24/18 11:29 Chloride 107 mmol/L (98-107) 11/24/18 11:29 Carbon Dioxide 17 mmol/L (22-32) L 11/24/18 11:29 BUN 81 mg/dL (9-20) H 11/24/18 11:29 Creatinine 2.50 mg/dL (0.66-1.25) H 11/24/18 11:29 Estimated GFR 24.8 mL/min (>60) L 11/24/18 11:29 BUN/Creatinine Ratio 32.4 (6-22) H 11/24/18 11:29 Glucose 119 mg/dL (80-110) H 11/24/18 11:29 Calcium 9.9 mg/dL (8.4-10.2) 11/24/18 11:29 Total Bilirubin 0.4 mg/dL (0.2-1.3) 11/24/18 11:29 AST 22 IU/L (17-59) 11/24/18 11:29 ALT 28 IU/L (21-72) 11/24/18 11:29 Alkaline Phosphatase 87 U/L (38-126) 11/24/18 11:29 Total Protein 7.5 g/dL (6.3-8.2) 11/24/18 11:29 Albumin 4.5 g/dL (3.5-5.0) 11/24/18 11:29 Globulin 3.0 g/dL (1.7-4.1) 11/24/18 11:29 Albumin/Globulin Ratio 1.5 (1.0-2.8) 11/24/18 11:29 - Imaging Additional studies: Procedures Injection or infusion of other therapeutic or prophylactic substance (02/08/14) Assessment and Plan (1) Mantle cell lymphoma Problem details: Low grade mantle cell lymphoma dianosed after biopsy of mass at posterior hard palate in 04/2010, status post bendamustine and Rituxan followed by 4 cycles of maintenance Rituxan discontinued in 09/2012 due to instability of gait which has since resolved. Recurrence of mantle cell lymphoma confirmed by an ileostomy sidewall biopsy of an irritative growth on 03/02/2016, status post bendamustine/Rituxan completed December 2016. Now with continued slow growing of the ileostomy mass, biopsy of which in 01/20/2018 confirmed recurrence of mantle cell lymphoma. I have talked with him multiple times about medical palliative therapy (venetoclax, ibrutinib), however, patient has been very reluctant. Eventually, he agreed and underwent palliative radiation therapy from 11/07/2018 to with delays and interruption. He said that the mass at the ileostomy site has shrunked dramatically Assessment and Plan: Today, he and his daughter first would like to know what life expectancy would be. I told them I can not predict. His mantle cell lymphoma has been diagnosed for almost a decade. He has had multiple recurrences. Usually mantel cell lymphoma is an aggressive type of lymphoma requiring intensive chemotherapy followed by bone marrow transplant. However, there is a small proportion of patients who demonstrated a rather indolent courser. His mantel cell lymphoma could be this type, but we can not be sure. I emphasized multiple times that I can not tell how long he will live. Next, I talked with them that there have been lots of new development for the past 10 years as far as treatment of mantle cell lymphoma is concerned. These new treatments are not traditional cytotoxic chemotherapy. They have a better outcome with lesser complications. We talked with him again about the regimen with venetoclax and or iburinib. They are oral medications. Clinical trials have shown that the oral regimen fares better than previous traditional chemotherapy (venetoclax and ibrutinib. The rate of complete response as assessed by PET was 62% at week 16 and 71% overall Asif Curry et al. WAJ 2018; [id number]). I also offer to refer him to [facility] for second opinion to help him decide. I told him that my opinion is that his mantle cell lymphoma is treatable and hospice care may not be the best option. However, I will support his own decision if he chose to proceed to hospice care. Patient is undecided and agrees with a second opinion at [facility]. Plan 1. Refer to [facility] for second opinion 2. RTC in one month for follow up visit. (2) C. difficile enteritis Assessment and Plan: He is now experiencing active C-diff infection. He has a remote history of C-diff in the past. I told him that the current episode most likely is recurrence from his previous infection. I encourage him continue follow up with Nicko Do for treatment. The patient is taking oral vancomycin. He said he was taking a different medication when he had his first episode of C-diff. I told him that we used to use Flagyl to treat C-diff, but now oral vancomycin is the standard of care and works better than Flagy.
--- NOTE | 2019-01-11 12:35 | P.PNONC_ITS ---
PN -Subjective Interval history: From 11/07/2018, he was started on palliative radiotherapy towards the mass at the ostomy site under the care of Dr Nicko Wiseman. After about 2 weeks of radiation therapy, he was hospitalized for acute kidney failure due to large volume ileostomy fluid output. 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 After hydration, his serum Cr has improved dramatically. His ostomy output also has decreased. Today, he admitted that he has a remote history of C-diff infection. Today, he came in accompanied by his daughter. He said that he is still having watery diarrhea. He has refused to continue and complete the remaining radiation therapy. He would like to know more prognosis information regarding his mantle cell lymphoma to help him decide about if hospice care is appropriate. Oncological History 83-year-old gentleman with low grade mantle cell lymphoma, that was diagnosed after biopsy of a blue, spongy, vascular mass over the posterior hard palate in 04/2010. Patient received chemotherapy including bendamustine and Rituxan followed by 4 additional cycles of maintenance Rituxan, that had to be discontinued in 09/2012 due to instability of gait which has since resolved. He suffered a recurrence of mantle cell lymphoma confirmed by an ileostomy sidewall biopsy of an irritative growth on 03/02/2016. The patient went on to receive additional bendamustine/Rituxan completed December 2016. According to the patient, his stoma symptoms improved with the chemotherapy. I believe that probably since after the chemotherapy, patient has noticed the growth has been slowly growing. Initially it was a size of 3-4 cm, now it has grown to the size of a golf ball and it is very hard. Patient said that sometimes the growth closes off the stoma especially after he ingests solid food. Patient said that he usually would develop symptoms including pain, but denies any nausea or vomiting. On 12/29/2017, CT of the neck, chest abdomen and pelvis showed no overt evidence of gross evidence of lymphoma. Patient underwent a repeat ileostomy sidewall biopsy on 01/20/2018. The immunohistochemistry staining was suggestive of infiltrative mantle cell lymphoma. Dr. Alarcon saw the patient at the time, and discussed with the patient about chemotherapy as well as possible radiation treatment. However patient did not show any interest in further chemotherapy In 07/2018, he was evaluated by his primary care provider Nicko Diaz. Dr. Diaz persuaded him to come to our clinic for further evaluation as the growth at the stoma has been slowly growing with some tenderness and occasionally bleeding. He then underwent PET-CT on 10/04/2018 that showed soft tissue nodules in the right ileostomy site with increased FDG activity consistent with recurrent lymphoma, numerous new and mildly enlarged/normal sized lymph nodes involving the left neck, supraclavicular region, mediastinum, mesenteric, and retroperitoneum demonstrating mildly increased uptake concerning for recurrence of lymphoma. Patient saw Dr. Nicko Wiseman at [facility] on 10/05/2018. Dr. Wiseman recommended consideration for palliative radiation directed at the PET/CT positive masses. Dr. Wiseman thought that the potential benefits from palliative radiation exceeded the potential risks form radiation toxicity. On 11/09/2018, as part of the staging process patient underwent bone marrow aspiration biopsy that showed involvement by the known mantle cell lymphoma. - Patient Self-Reported Symptoms SR Constitution: Fatigue/Malaise SR ears, nose, mouth, throat issues: Cough, Difficulty swallowing, Hoarseness SR respiratory issues: Cough, Shortness of breath SR Cardiovascular issues: Shortness of breath with activity or lying flat, Dizzy/lightheaded SR Gastrointestinal issues: Poor or no appetite SR Musculoskeletal issues: Muscle weakness SR Neuro issues: Lightheaded/dizzy SR Hematologic issues: Swollen lymph nodes - Additional ROS All systems PM: reviewed and no additional remarkable complaints except as stated Home Medications and Allergies Home Medications Medication Instructions Recorded Confirmed Type clopidogrel 75 mg tablet 75 mg PO DAILY 08/10/18 01/04/19 History aspirin 81 mg PO DAILY 11/30/18 01/04/19 History metoprolol succinate 50 mg PO DAILY 11/30/18 01/04/19 History vancomycin 125 mg PO QID #56 cap 12/26/18 01/04/19 Rx Allergies Allergy/AdvReac Type Severity Reaction Status Date / Time No Known Drug Allergies Allergy Verified 01/04/19 11:21 Exam Vital signs: Last Vital Signs Temp 97.1 F L 01/11/19 12:20 Pulse 69 01/11/19 12:20 Resp 18 01/11/19 12:20 BP 101/60 01/11/19 12:20 Pulse Ox 98 01/11/19 12:20 ECOG 1 Narrative: I did not performed physical examination throughout today's information encounter. Results - Labs Laboratory Last Values WBC 14.9 X10^3/uL (4.5-11.0) H 11/24/18 11:29 RBC 3.67 X10^6/uL (4.5-5.9) L 11/24/18 11:29 Hgb 12.2 g/dL (13.5-17.5) L 11/24/18 11:29 Hct 36.6 % (41-53) L 11/24/18 11:29 MCV 99.8 fL (80-100) 11/24/18 11:29 MCH 33.3 PG (26-34) 11/24/18 11:29 MCHC 33.4 % (30-36) 11/24/18 11:29 RDW 13.0 % (11.6-14.8) 11/24/18 11:29 Plt Count 251 X10^3/uL (150-400) 11/24/18 11:29 Neut % (Auto) 43.5 % (50-75) L 11/24/18 11:29 Lymph % (Auto) 49.0 % (25-40) H 11/24/18 11:29 [place] % (Auto) 3.7 % (3-14) 11/24/18 11:29 Eos % (Auto) 3.3 % (2-4) 11/24/18 11:29 Baso % (Auto) 0.5 % (0-2) 11/24/18 11:29 Neut # (Auto) 6500 /uL (4141-3249) 11/24/18 11:29 Lymph # (Auto) 7300 /uL (2516-5811) H 11/24/18 11:29 [place] # (Auto) 600 /uL (0-900) 11/24/18 11:29 Eos # (Auto) 500 /uL (0-450) H 11/24/18 11:29 Baso # (Auto) 100 /uL (0-100) 11/24/18 11:29 Sodium 136 mmol/L (137-145) L 11/24/18 11:29 Potassium 6.3 mmol/L (3.4-5.1) H* 11/24/18 11:29 Chloride 107 mmol/L (98-107) 11/24/18 11:29 Carbon Dioxide 17 mmol/L (22-32) L 11/24/18 11:29 BUN 81 mg/dL (9-20) H 11/24/18 11:29 Creatinine 2.50 mg/dL (0.66-1.25) H 11/24/18 11:29 Estimated GFR 24.8 mL/min (>60) L 11/24/18 11:29 BUN/Creatinine Ratio 32.4 (6-22) H 11/24/18 11:29 Glucose 119 mg/dL (80-110) H 11/24/18 11:29 Calcium 9.9 mg/dL (8.4-10.2) 11/24/18 11:29 Total Bilirubin 0.4 mg/dL (0.2-1.3) 11/24/18 11:29 AST 22 IU/L (17-59) 11/24/18 11:29 ALT 28 IU/L (21-72) 11/24/18 11:29 Alkaline Phosphatase 87 U/L (38-126) 11/24/18 11:29 Total Protein 7.5 g/dL (6.3-8.2) 11/24/18 11:29 Albumin 4.5 g/dL (3.5-5.0) 11/24/18 11:29 Globulin 3.0 g/dL (1.7-4.1) 11/24/18 11:29 Albumin/Globulin Ratio 1.5 (1.0-2.8) 11/24/18 11:29 - Imaging Additional studies: Procedures Injection or infusion of other therapeutic or prophylactic substance (02/08/14) Assessment and Plan (1) Mantle cell lymphoma Problem details: Low grade mantle cell lymphoma dianosed after biopsy of mass at posterior hard palate in 04/2010, status post bendamustine and Rituxan followed by 4 cycles of maintenance Rituxan discontinued in 09/2012 due to instability of gait which has since resolved. Recurrence of mantle cell lymphoma confirmed by an ileostomy sidewall biopsy of an irritative growth on 03/02/2016, status post bendamustine/Rituxan completed December 2016. Now with continued slow growing of the ileostomy mass, biopsy of which in 01/20/2018 confirmed recurrence of mantle cell lymphoma. I have talked with him multiple times about medical palliative therapy (venetoclax, ibrutinib), however, patient has been very reluctant. Eventually, he agreed and underwent palliative radiation therapy from 11/07/2018 to with delays and interruption. He said that the mass at the ileostomy site has shrunked dramatically Assessment and Plan: Today, he and his daughter first would like to know what life expectancy would be. I told them I can not predict. His mantle cell lymphoma has been diagnosed for almost a decade. He has had multiple recurrences. Usually mantel cell lymphoma is an aggressive type of lymphoma requiring intensive chemotherapy followed by bone marrow transplant. However, there is a small proportion of patients who demonstrated a rather indolent courser. His mantel cell lymphoma could be this type, but we can not be sure. I emphasized multiple times that I can not tell how long he will live. Next, I talked with them that there have been lots of new development for the past 10 years as far as treatment of mantle cell lymphoma is concerned. These new treatments are not traditional cytotoxic chemotherapy. They have a better outcome with lesser complications. We talked with him again about the regimen with venetoclax and or iburinib. They are oral medications. Clinical trials have shown that the oral regimen fares better than previous traditional chemotherapy (venetoclax and ibrutinib. The rate of complete response as assessed by PET was 62% at week 16 and 71% overall Asif Curry et al. DCJ 2018; [id number]). I also offer to refer him to [facility] for second opinion to help him decide. I told him that my opinion is that his mantle cell lymphoma is treatable and hospice care may not be the best option. However, I will support his own decision if he chose to proceed to hospice care. Patient is undecided and agrees with a second opinion at [facility]. Plan 1. Refer to [facility] for second opinion 2. RTC in one month for follow up visit. (2) C. difficile enteritis Assessment and Plan: He is now experiencing active C-diff infection. He has a remote history of C-diff in the past. I told him that the current episode most likely is recurrence from his previous infection. I encourage him continue follow up with Nicko Do for treatment. The patient is taking oral vancomycin. He said he was taking a different medication when he had his first episode of C-diff. I told him that we used to use Flagyl to treat C-diff, but now oral vancomycin is the standard of care and works better than Flagy.
--- NOTE | 2019-01-29 15:17 | ONC.SCHED ---
FAXED RECORDS TO [facility] REGARDING THIS REFERRAL. I CALLED JUST NOW TO MAKE SURE THEY RECEIVED THE FAX I DID GET CONFIRMATION AND THEY CONFIRMED IN THEIR ONCOLOGY DEPT. THAT THEY DID GET THE REFERRAL AND WILL WORK TO GET THE PATIENT SCHEDULED.
[2019-03-08 11:37] VITALS: BP 118/60; PULSE 88; RESP 18; TEMP 36.2; O2SAT 100
--- NOTE | 2019-03-08 11:56 | ONC.PN ---
PN -Subjective Interval history: From 11/07/2018, he was started on palliative radiotherapy towards the mass at the ostomy site under the care of Dr Nicko Wiseman. After about 2 weeks of radiation therapy, he was hospitalized for acute kidney failure due to large volume ileostomy fluid output. 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 After hydration, his serum Cr has improved dramatically. His ostomy output also has decreased. Today, he admitted that he has a remote history of C-diff infection. He then refused to continue and complete the remaining radiation therapy. During his previous visit, I referred the patient to [facility] for a second opinion. However due to insurance restriction, patient did not get from [facility]: However he was evaluated by a [facility] hematology oncologist at [place]. Patient could not remember the name of the hematology oncologist. However Jake said that the recommendation is the same as I have told the patient. However patient was extremely concerned about the listed potential side effects on the product insert. He said he would not want to from the complications Clinically patient is still having some diarrhea but probably slightly less than before. He has a poor appetite. He has problems with the swallowing and throat. There is bilateral submandibular swelling and lumps. He denies any fever or chills. No nausea no vomiting. He denies any bone pain. He denies any blood in the stool. Patient does report some muscle soreness. Oncological History 83-year-old gentleman with low grade mantle cell lymphoma, that was diagnosed after biopsy of a blue, spongy, vascular mass over the posterior hard palate in 04/2010. Patient received chemotherapy including bendamustine and Rituxan followed by 4 additional cycles of maintenance Rituxan, that had to be discontinued in 09/2012 due to instability of gait which has since resolved. He suffered a recurrence of mantle cell lymphoma confirmed by an ileostomy sidewall biopsy of an irritative growth on 03/02/2016. The patient went on to receive additional bendamustine/Rituxan completed December 2016. According to the patient, his stoma symptoms improved with the chemotherapy. I believe that probably since after the chemotherapy, patient has noticed the growth has been slowly growing. Initially it was a size of 3-4 cm, now it has grown to the size of a golf ball and it is very hard. Patient said that sometimes the growth closes off the stoma especially after he ingests solid food. Patient said that he usually would develop symptoms including pain, but denies any nausea or vomiting. On 12/29/2017, CT of the neck, chest abdomen and pelvis showed no overt evidence of gross evidence of lymphoma. Patient underwent a repeat ileostomy sidewall biopsy on 01/20/2018. The immunohistochemistry staining was suggestive of infiltrative mantle cell lymphoma. Dr. Alarcon saw the patient at the time, and discussed with the patient about chemotherapy as well as possible radiation treatment. However patient did not show any interest in further chemotherapy In 07/2018, he was evaluated by his primary care provider Nicko Diaz. Dr. Diaz persuaded him to come to our clinic for further evaluation as the growth at the stoma has been slowly growing with some tenderness and occasionally bleeding. He then underwent PET-CT on 10/04/2018 that showed soft tissue nodules in the right ileostomy site with increased FDG activity consistent with recurrent lymphoma, numerous new and mildly enlarged/normal sized lymph nodes involving the left neck, supraclavicular region, mediastinum, mesenteric, and retroperitoneum demonstrating mildly increased uptake concerning for recurrence of lymphoma. Patient saw Dr. Nicko Wiseman at [facility] on 10/05/2018. Dr. Wiseman recommended consideration for palliative radiation directed at the PET/CT positive masses. Dr. Wiseman thought that the potential benefits from palliative radiation exceeded the potential risks form radiation toxicity. On 11/09/2018, as part of the staging process patient underwent bone marrow aspiration biopsy that showed involvement by the known mantle cell lymphoma. - Patient Self-Reported Symptoms SR Constitution: Weight loss/gain, Fatigue/Malaise SR ears, nose, mouth, throat issues: Difficulty swallowing, Mouth sores, Bleeding gums SR respiratory issues: Cough, Shortness of breath SR Cardiovascular issues: Shortness of breath with activity or lying flat, Dizzy/lightheaded SR Gastrointestinal issues: Poor or no appetite, Diarrhea SR Genitourinary issues: Frequent urination, Change in stream SR Musculoskeletal issues: Muscle weakness SR Neuro issues: Lightheaded/dizzy SR Hematologic issues: Swollen lymph nodes - Additional ROS All systems PM: reviewed and no additional remarkable complaints except as stated Home Medications and Allergies Home Medications Medication Instructions Recorded Confirmed Type clopidogrel 75 mg tablet 75 mg PO DAILY 08/10/18 03/08/19 History aspirin 81 mg PO DAILY 11/30/18 03/08/19 History tamsulosin 0.4 mg capsule 0.4 mg PO DAILY #30 cap 02/08/19 03/08/19 Rx ibrutinib 560 mg PO DAILY #30 tab 03/08/19 Rx Allergies Allergy/AdvReac Type Severity Reaction Status Date / Time No Known Drug Allergies Allergy Verified 03/01/19 11:18 Exam Vital signs: Last Vital Signs Temp 97.2 F L 03/08/19 11:37 Pulse 88 03/08/19 11:37 Resp 18 03/08/19 11:37 BP 118/60 03/08/19 11:37 Pulse Ox 100 03/08/19 11:37 ECOG 1 Narrative: Gen: WDWN, NAD, chronically ill, accompanied by his sister. HEENT: NCAT, EOMI, PERRLA, anicteric sclera. There are palpable submandibular lobulated masses/lymph nodes about the size of 5 cm with some tenderness. oropharynx is clean and without mass or erythema all source. Tonsils are not enlarged. Neck: Supple, No palpable thyromegaly or lymphadenopathy. Respiratory: CTAB, no wheezes audible. No JVD Cardiovascular: RRR, S1 and S2 normal, no M/G/R. Abdomen: Soft, NTND, BS normal, spleen just palpable below the left costal margin. Ostomy site noted. Extremities: No LE pitting edema. Lymphatic: no palpable lymph nodes in the neck, axillae, or groins. Neurological: AOx3, CN II-XII grossly intact. No focal motor or sensory deficit. Results - Labs Laboratory tests from 03/07/2019 WBC 52.8, hemoglobin 8.4, hematocrit 27.0, MCV 100.8, platelets 183, sodium 139, potassium 4.4, chloride 110, carbon dioxide 18, BUN 52, creatinine 2.6, glucose 111, calcium 9.2 - Imaging Additional studies: Procedures Injection or infusion of other therapeutic or prophylactic substance (02/08/14) Assessment and Plan (1) Mantle cell lymphoma Overview: Low grade mantle cell lymphoma dianosed after biopsy of mass at posterior hard palate in 04/2010, status post bendamustine and Rituxan followed by 4 cycles of maintenance Rituxan discontinued in 09/2012 due to instability of gait which has since resolved. Recurrence of mantle cell lymphoma confirmed by an ileostomy sidewall biopsy of an irritative growth on 03/02/2016, status post bendamustine/Rituxan completed December 2016. Now with continued slow growing of the ileostomy mass, biopsy of which in 01/20/2018 confirmed recurrence of mantle cell lymphoma. I have talked with him multiple times about medical palliative therapy (venetoclax, ibrutinib), however, patient has been very reluctant. Eventually, he agreed and underwent palliative radiation therapy from 11/07/2018 to with delays and interruption. He said that the mass at the ileostomy site has shrunked dramatically Assessment: I talked with the patient that it is good to know that the health clinician from [facility] actually recommended the same strategy as I have been talking with the patient for the last couple of months. I talked with him that mantle cell lymphoma is a treatable disease. If we do not treat, it will definitely continue to grow and to cause signs and symptoms. I especially talked with him that the submandibular lymph nodes eventually will cause problems with swallowing and possibly breathing. Patient apparently voiced understanding. Based on the report, treatment with ibrutinib and venetoclax are highly effective in relieving the signs and symptoms. It has a very high complete response in the range of 60-70% (Laith S. Patricio et al. [facility] 2018; 378:1211). However, I talked with him and his daughter that there is no way we can predict who is going to respond and who is not. In addition we cannot predict who is going to develope medications related side effects. But in my opinion, the benefit far outweighs the potential side effects/complications. Patient however is still very reluctant. He is afraid of the potential side effects as well as worried about the potential cost. Our social media marketing analyst Elizabeth was with us during the whole discussion. Yossi reassured the patient that we can try to help him as far as co-pay is concerned by identifying potential foundations. Eventually, patient agreed to try 1 medication first and move forward. I talked with the patient I will proceed with ibrutinib first. In addition, patient has significant lymphocytosis. I will obtain blood samples for flow cytometry to confirm the diagnosis of mantle cell lymphoma. Plan 1. pre-auth: Ibrubinib 560 mg daily, start once received. 2. Flow-cytometry, peripheral blood, lymphoma/leukemia panel 3. RTC on 03/19/2019
--- NOTE | 2019-03-08 12:06 | P.PNONC_ITS ---
PN -Subjective Interval history: From 11/07/2018, he was started on palliative radiotherapy towards the mass at the ostomy site under the care of Dr Nicko Wiseman. After about 2 weeks of radiation therapy, he was hospitalized for acute kidney failure due to large volume ileostomy fluid output. 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 After hydration, his serum Cr has improved dramatically. His ostomy output also has decreased. Today, he admitted that he has a remote history of C-diff infection. He then refused to continue and complete the remaining radiation therapy. During his previous visit, I referred the patient to [facility] for a second opinion. However due to insurance restriction, patient did not get from [facility]: However he was evaluated by a [place] hematology oncologist at [place]. Patient could not remember the name of the hematology oncologist. However Jake said that the recommendation is the same as I have told the patient. However patient was extremely concerned about the listed potential side effects on the product insert. He said he would not want to from the complications Clinically patient is still having some diarrhea but probably slightly less than before. He has a poor appetite. He has problems with the swallowing and throat. There is bilateral submandibular swelling and lumps. He denies any fever or chills. No nausea no vomiting. He denies any bone pain. He denies any blood in the stool. Patient does report some muscle soreness. Oncological History 83-year-old gentleman with low grade mantle cell lymphoma, that was diagnosed after biopsy of a blue, spongy, vascular mass over the posterior hard palate in 04/2010. Patient received chemotherapy including bendamustine and Rituxan followed by 4 additional cycles of maintenance Rituxan, that had to be discontinued in 09/2012 due to instability of gait which has since resolved. He suffered a recurrence of mantle cell lymphoma confirmed by an ileostomy sidewall biopsy of an irritative growth on 03/02/2016. The patient went on to receive additional bendamustine/Rituxan completed December 2016. According to the patient, his stoma symptoms improved with the chemotherapy. I believe that probably since after the chemotherapy, patient has noticed the growth has been slowly growing. Initially it was a size of 3-4 cm, now it has grown to the size of a golf ball and it is very hard. Patient said that sometimes the growth closes off the stoma especially after he ingests solid food. Patient said that he usually would develop symptoms including pain, but denies any nausea or vomiting. On 12/29/2017, CT of the neck, chest abdomen and pelvis showed no overt evidence of gross evidence of lymphoma. Patient underwent a repeat ileostomy sidewall biopsy on 01/20/2018. The immunohistochemistry staining was suggestive of infiltrative mantle cell lymphoma. Dr. Alarcon saw the patient at the time, and discussed with the patient about chemotherapy as well as possible radiation treatment. However patient did not show any interest in further chemotherapy In 07/2018, he was evaluated by his primary care provider Nicko Diaz. Dr. Diaz persuaded him to come to our clinic for further evaluation as the growth at the stoma has been slowly growing with some tenderness and occasionally bleeding. He then underwent PET-CT on 10/04/2018 that showed soft tissue nodules in the right ileostomy site with increased FDG activity consistent with recurrent lymphoma, numerous new and mildly enlarged/normal sized lymph nodes involving the left neck, supraclavicular region, mediastinum, mesenteric, and retroperitoneum demonstrating mildly increased uptake concerning for recurrence of lymphoma. Patient saw Dr. Nicko Wiseman at [facility] on 10/05/2018. Dr. Wiseman recommended consideration for palliative radiation directed at the PET/CT positive masses. Dr. Wiseman thought that the potential benefits from palliative radiation exceeded the potential risks form radiation toxicity. On 11/09/2018, as part of the staging process patient underwent bone marrow aspiration biopsy that showed involvement by the known mantle cell lymphoma. - Patient Self-Reported Symptoms SR Constitution: Weight loss/gain, Fatigue/Malaise SR ears, nose, mouth, throat issues: Difficulty swallowing, Mouth sores, Bleeding gums SR respiratory issues: Cough, Shortness of breath SR Cardiovascular issues: Shortness of breath with activity or lying flat, Dizzy/lightheaded SR Gastrointestinal issues: Poor or no appetite, Diarrhea SR Genitourinary issues: Frequent urination, Change in stream SR Musculoskeletal issues: Muscle weakness SR Neuro issues: Lightheaded/dizzy SR Hematologic issues: Swollen lymph nodes - Additional ROS All systems PM: reviewed and no additional remarkable complaints except as stated Home Medications and Allergies Home Medications Medication Instructions Recorded Confirmed Type clopidogrel 75 mg tablet 75 mg PO DAILY 08/10/18 03/08/19 History aspirin 81 mg PO DAILY 11/30/18 03/08/19 History tamsulosin 0.4 mg capsule 0.4 mg PO DAILY #30 cap 02/08/19 03/08/19 Rx ibrutinib 560 mg PO DAILY #30 tab 03/08/19 Rx Allergies Allergy/AdvReac Type Severity Reaction Status Date / Time No Known Drug Allergies Allergy Verified 03/01/19 11:18 Exam Vital signs: Last Vital Signs Temp 97.2 F L 03/08/19 11:37 Pulse 88 03/08/19 11:37 Resp 18 03/08/19 11:37 BP 118/60 03/08/19 11:37 Pulse Ox 100 03/08/19 11:37 ECOG 1 Narrative: Gen: WDWN, NAD, chronically ill, accompanied by his sister. HEENT: NCAT, EOMI, PERRLA, anicteric sclera. There are palpable submandibular lobulated masses/lymph nodes about the size of 5 cm with some tenderness. oropharynx is clean and without mass or erythema all source. Tonsils are not enlarged. Neck: Supple, No palpable thyromegaly or lymphadenopathy. Respiratory: CTAB, no wheezes audible. No JVD Cardiovascular: RRR, S1 and S2 normal, no M/G/R. Abdomen: Soft, NTND, BS normal, spleen just palpable below the left costal margin. Ostomy site noted. Extremities: No LE pitting edema. Lymphatic: no palpable lymph nodes in the neck, axillae, or groins. Neurological: AOx3, CN II-XII grossly intact. No focal motor or sensory deficit. Results - Labs Laboratory tests from 03/07/2019 WBC 52.8, hemoglobin 8.4, hematocrit 27.0, MCV 100.8, platelets 183, sodium 139, potassium 4.4, chloride 110, carbon dioxide 18, BUN 52, creatinine 2.6, glucose 111, calcium 9.2 - Imaging Additional studies: Procedures Injection or infusion of other therapeutic or prophylactic substance (02/08/14) Assessment and Plan (1) Mantle cell lymphoma Overview: Low grade mantle cell lymphoma dianosed after biopsy of mass at posterior hard palate in 04/2010, status post bendamustine and Rituxan followed by 4 cycles of maintenance Rituxan discontinued in 09/2012 due to instability of gait which has since resolved. Recurrence of mantle cell lymphoma confirmed by an ileostomy sidewall biopsy of an irritative growth on 03/02/2016, status post bendamustine/Rituxan completed December 2016. Now with continued slow growing of the ileostomy mass, biopsy of which in 01/20/2018 confirmed recurrence of mantle cell lymphoma. I have talked with him multiple times about medical palliative therapy (venetoclax, ibrutinib), however, patient has been very reluctant. Eventually, he agreed and underwent palliative radiation therapy from 11/07/2018 to with delays and interruption. He said that the mass at the ileostomy site has shrunked dramatically Assessment: I talked with the patient that it is good to know that the brick paving checker from [place] actually recommended the same strategy as I have been talking with the patient for the last couple of months. I talked with him that mantle cell lymphoma is a treatable disease. If we do not treat, it will definitely continue to grow and to cause signs and symptoms. I especially talked with him that the submandibular lymph nodes eventually will cause problems with swallowing and possibly breathing. Patient apparently voiced understanding. Based on the report, treatment with ibrutinib and venetoclax are highly effective in relieving the signs and symptoms. It has a very high complete response in the range of 60-70% (Laith S. Patricio et al. [facility] 2018; 378:1211). However, I talked with him and his daughter that there is no way we can predict who is going to respond and who is not. In addition we cannot predict who is going to develope medications related side effects. But in my opinion, the benefit far outweighs the potential side effects/complications. Patient however is still very reluctant. He is afraid of the potential side effects as well as worried about the potential cost. Our cut in worker Elizabeth was with us during the whole discussion. Yossi reassured the patient that we can try to help him as far as co-pay is concerned by identifying potential foundations. Eventually, patient agreed to try 1 medication first and move forward. I talked with the patient I will proceed with ibrutinib first. In addition, patient has significant lymphocytosis. I will obtain blood samples for flow cytometry to confirm the diagnosis of mantle cell lymphoma. Plan 1. pre-auth: Ibrubinib 560 mg daily, start once received. 2. Flow-cytometry, peripheral blood, lymphoma/leukemia panel 3. RTC on 03/19/2019
[2019-03-09 12:20] LABS: Lactate Dehydrogenase 624 U/L (313-618)
[2019-03-13 12:29] LABS: Beta-2-Microglobulin 24.37 mg/L (< 2.52)
--- NOTE | 2019-03-21 09:29 | ONC.MSW ---
Addendum entered and electronically signed by Elizabeth Arnold LOCOMOTIVE SUPERVISOR 03/22/19 13:44: 03/21/19 T/C with daughter. Daughter was expressing frustration as to how long it was taking to obtain the Imbruvica. LOCOMOTIVE SUPERVISOR explained that we were now waiting to hear from [email or web address]. She states that her father was not doing well, that she thought he needed fluids, wasn't eating/drinking and that he was sleeping for most hours during the day. She requested assistance with expediting the hospice admission. LOCOMOTIVE SUPERVISOR called hospice and discussed this with the referral center. Pt is on a waitlist for admission, which they are hoping to have a spot soon in the coming week. LOCOMOTIVE SUPERVISOR spoke with charge histotechnologist, requested that pt be scheduled tomorrow for fluids and for md do resident urgent care. Pt was scheduled for 11:00am tomorrow. Goal is to help pt recover from dehydration and avoid acute kidney failure. Pt, dtr agree to the plan for pt to go forward with taking his palliative Imbruvica, even if he opts for hospice now. Hospice is okay with this plan as long as they don't have to order or monitor this medication. Goal for the Imbruvica is to shrink the size of the lymph nodes in pt's neck in order to improve PO intake, and thus improve quality of life. LOCOMOTIVE SUPERVISOR also emailed dtr the [facility] Durable Power of Motion Picture Director forms, per her request. Original Note: Description: Financial Assistance/Imbruvica Activity: LOCOMOTIVE SUPERVISOR faxed in the completed application for financial assistance for Imbruvica to [employer]. Pt is becoming frustrated with the process of obtaining this medication, however, he doesn't have any drug insurance/Part D with his Medicare, so we needed to apply directly to the tube man. Dtr called yesterday, insisting that this is taking too long, however she also was not understanding the process of obtaining an Oncology medication that requires pre-auth first-which is how we found out that he doesn't have drug coverage-then coordination for delivery with a specialty pharmacy. Pt decided yesterday that he will move forward with waiting for this medication, which is palliative, instead of opting for hospice services right now. LOCOMOTIVE SUPERVISOR will call dtr later today to give an update.
--- NOTE | 2019-03-21 15:22 | PC.NURSE ---
Call made to daughter of patient (Sherine) that we have made an appt for him to come in for fluids and nurse evaluation at 11 am on 03/22. This was initiated after a report from CALLY Johnson of a call with daughter reporting patient not drinking or eating, sleeping much, dehydrated. He has been frequently hospitilized in recent past. Hospice is presently being considered as a next step.
--- NOTE | 2019-04-12 09:41 | ONC.MSW ---
*Sent bereavement card.
== END ==
PROVIDERS: PCP Internal Medicine; Visit Provider Internal Medicine Hematology & Oncology
DX: C83.13 Mantle cell lymphoma, intra-abdominal lymph nodes (principal)
CPT/HCPCS: 36415; 38222; 80053; 82232; 83615; 85025; 96360; 99000; 99214; 99215

== ENCOUNTER → 2019-03-14 14:11 | Outpatient (CLI) | payer OTHER, SELFPAY ==
[2019-03-14 14:50] LABS: Hematocrit 27.7 % (41-53); Hemoglobin 8.6 g/dL (13.5-17.5); Mean Corpuscular HGB Conc 31.1 % (30-36); Mean Corpuscular Hemoglobin 31.2 PG (26-34); Mean Corpuscular Volume 100.1 fL (80-100); Platelet Count 205 X10^3/uL (150-400); Red Blood Cell Count 2.76 X10^6/uL (4.5-5.9)
[2019-03-14 14:53] LABS: White Blood Cell Count 52.9 X10^3/uL (4.5-11.0)
[2019-03-14 14:54] LABS: Add Manual Diff / Slide Review YES
[2019-03-14 15:12] LABS: Neutrophils Absolute Manual 3703 /uL (3000-5900); Total Cells Counted 100
[2019-03-14 15:13] LABS: RBC Morphology Normal Morphology; Smudge Cells 1+
== END ==
PROVIDERS: Family Provider Internal Medicine; PCP Internal Medicine; Visit Provider Internal Medicine
DX: C83.10 Mantle cell lymphoma, unspecified site (principal)
CPT/HCPCS: 36415; 85025

== ENCOUNTER → 2019-03-15 12:00 | Outpatient (CLI) | payer OTHER, SELFPAY ==
[2019-03-15 12:25] LABS: BUN Creatinine Ratio 20.3 (6-22); Blood Urea Nitrogen 79 mg/dL (9-20); Carbon Dioxide 15 mmol/L (22-32); Chloride 107 mmol/L (98-107); Estimated Glomerular Filt Rate 14.9 mL/min (>60); Glucose 94 mg/dL (80-110); HEMOLYSIS < 15 (0-50); Sodium 137 mmol/L (137-145)
[2019-03-15 12:29] LABS: Potassium 5.7 mmol/L (3.4-5.1)
[2019-03-15 16:07] LABS: Clostridium Difficile Tox PCR Negative for C.diff
== END ==
PROVIDERS: Family Provider Internal Medicine; PCP Internal Medicine; Visit Provider Internal Medicine
DX: A04.72 Enterocolitis due to Clostridium difficile, not specified as recurrent (principal); E87.5 Hyperkalemia; N17.9 Acute kidney failure, unspecified
CPT/HCPCS: 80048; 87493

== ENCOUNTER → 2019-03-22 11:00 | Outpatient (RCR) | payer OTHER, SELFPAY ==
[2019-03-16] MEDS: SODIUM CHLORIDE 0.9% 1,000 ML 500 ML IV ×2 (09:59→12:08)
[2019-03-16 10:10] VITALS: BP 123/57; PULSE 97; RESP 18; TEMP 36.8; O2SAT 96
--- NOTE | 2019-03-16 10:12 | PC.NURSE ---
Addendum entered by Jani Lua R.N. 03/16/19 14:55: 1415: 2cd infusion NS completed. patient tolerated well. no s/sx's of respiratory distress. sat 100% on ra. vss. was assisted to the br once in between liters to empty his colostomy and unmeasured urine. ate 1/2 of a jello cup and some water while he was here. his friend arrived at conclusion of infusion. patient was escorted by this aligner typewriter by to the vehicle. Addendum entered by Jani Lua R.N. 03/16/19 10:51: patient snoring. appears comfortable. iv patent no adverse symptoms noted. Original Note: PATIENT ARRIVED FOR INFUSION WITH HIS FRIEND TO ACCOMPANY HIM. STATES FEELS WEAK, DIFFICULTY TALKING RELATED TO EFFORT AND DRYNESS, CAN'T WALK, CAN'T STAND TO SHOWER. STATES HE CAN WALK FROM THE BED TO THE BR W/ WALKER HOWEVER. ALSO REPORTS POOR APPETITE. IV STARTED AND INFUSION STARTED PER ORDERS.
[2019-03-16 12:09] VITALS: BP 124/50; PULSE 99; O2SAT 95
[2019-03-16 14:17] VITALS: BP 131/64; PULSE 95; RESP 18; O2SAT 99
[2019-03-22 11:30] VITALS: BP 112/55; PULSE 94; RESP 16; TEMP 36.7; O2SAT 99
[2019-03-22] MEDS: SODIUM CHLORIDE 0.9% 1,000 ML 1000 ML IV ×2 (11:58→14:00)
[2019-03-22 12:07] LABS: Hematocrit 27.4 % (41-53); Hemoglobin 8.4 g/dL (13.5-17.5); Mean Corpuscular HGB Conc 30.6 % (30-36); Mean Corpuscular Hemoglobin 30.8 PG (26-34); Mean Corpuscular Volume 100.5 fL (80-100); Platelet Count 194 X10^3/uL (150-400); Red Blood Cell Count 2.72 X10^6/uL (4.5-5.9); Red Cell Distribution Width 13.9 % (11.6-14.8)
[2019-03-22 12:08] LABS: Add Manual Diff / Slide Review YES
[2019-03-22 12:09] LABS: White Blood Cell Count 62.6 X10^3/uL (4.5-11.0)
[2019-03-22 12:21] LABS: Alanine Aminotransferase 10 IU/L (21-72); Albumin 3.8 g/dL (3.5-5.0); Albumin Globulin Ratio 1.6 (1.0-2.8); Alkaline Phosphatase 73 U/L (38-126); Aspartate Aminotransferase 16 IU/L (17-59); BUN Creatinine Ratio 19.2 (6-22); Bilirubin Total 0.3 mg/dL (0.2-1.3); Blood Urea Nitrogen 100 mg/dL (9-20); Calcium 9.5 mg/dL (8.4-10.2); Carbon Dioxide 14 mmol/L (22-32); Chloride 115 mmol/L (98-107); Estimated Glomerular Filt Rate 10.7 mL/min (>60); Globulin 2.4 g/dL (1.7-4.1); Glucose 140 mg/dL (80-110); HEMOLYSIS < 15 (0-50); Potassium 5.3 mmol/L (3.4-5.1); Sodium 142 mmol/L (137-145); Total Protein 6.2 g/dL (6.3-8.2)
[2019-03-22 12:47] LABS: Neutrophils Absolute Manual 5008 /uL (3000-5900); RBC Morphology Normal Morphology; Smudge Cells 1+; Total Cells Counted 100
== END ==
LOC: ONC 03-15 19:06
PROVIDERS: Family Provider Internal Medicine; PCP Internal Medicine; Visit Provider Internal Medicine Hematology & Oncology
DX: C83.13 Mantle cell lymphoma, intra-abdominal lymph nodes (principal)
CPT/HCPCS: 36415; 80053; 85025; 96361; 96365

== ENCOUNTER 2019-03-22 16:12 | Observation (INO) | payer OTHER, SELFPAY ==
[2019-03-22 16:25] VITALS: BP 134/57; PULSE 91; RESP 16; TEMP 36.4; O2SAT 100
--- NOTE | 2019-03-22 16:45 | DI.RAD.S_ITS ---
PROCEDURE: XR ACUTE ABDOMEN SERIES INDICATIONS: chronic abd pain, nausea, cancer TECHNIQUE: One view chest and two views of the abdomen were acquired. COMPARISON: [facility], , XR ACUTE ABDOMEN SERIES, 11/30/2018, 11:57. [facility], , ABDOMEN ACUTE SERIES, 07/05/2014, 12:45. FINDINGS: Surgical changes and devices: None. Chest: Lungs are clear. Heart size is normal. No pleural effusions. No pneumoperitoneum. Abdomen: Bowel gas pattern is normal. No suspicious calcifications. Visualized solid organ contours appear normal. Bones: No suspicious bony lesions. IMPRESSION: Nonspecific bowel gas pattern. Scattered surgical clips noted over the lower abdomen and pelvis but these have been previously present. No subdiaphragmatic free air. Dictated by: Juan Carlos Vela M.D. on 03/22/2019 at 17:45 Approved by: Juan Carlos Vela M.D. on 03/22/2019 at 17:46
--- NOTE | 2019-03-22 16:53 | ED_ITS ---
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 He has had recurrent dehydration, getting progressively weaker at home, unable to tolerate food and minimal oral fluid. He was noted to have renal failure and elevated potassium today and was infused with 2 L of fluid, admission was requested as he is on a waiting list for hospice but unable to ambulate with a cane as usual due to weakness, unable to shower or manage daily activities. He states he has chronic abdominal pain, but no acute changes today. He has nausea, no vomiting. He has had 1 can of Ensure today, no solid foods or more fluids aside from the IV. He states he has a weak urinary stream and more frequency, also gradual. No hematuria or dysuria. He has an ostomy in place, no changes there. He denies any chest pain, or cough. He denies any new fever or other new symptoms on systems review such as pain or swelling in the extremities. notes that he was given some pain medication to try at home but this caused stomach upset in the morning when he tried to eat. His daughter joins later and notes that he has probably had a bite or 2 of solid food in the last 4 days (cereal 4 days ago). Related Data Home Medications Medication Instructions Recorded Confirmed clopidogrel 75 mg tablet 75 mg PO DAILY 08/10/18 03/22/19 aspirin 81 mg PO DAILY 11/30/18 03/22/19 Previous Rx's Medication Instructions Recorded ibrutinib 560 mg PO DAILY #30 tab 03/08/19 tramadol 50 mg tablet 50 mg PO Q8H PRN #30 tab 03/15/19 Allergies Allergy/AdvReac Type Severity Reaction Status Date / Time No Known Drug Allergies Allergy Verified 03/22/19 16:25 Review of Systems <Tita Alarcon PA-C - Last Filed: 03/22/19 19:00> Review of Systems ROS Unobtainable: All systems reviewed & are unremarkable except as noted in HPI and below PFSH <Tita Alarcon PA-C - Last Filed: 03/22/19 19:00> Medical History 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) Coronary artery disease (Chronic ~04/2016) Peripheral vascular disease (Chronic) GERD (gastroesophageal reflux disease) (Chronic) Mixed hyperlipidemia (Chronic 06/23/11) Elevated prostate specific antigen (PSA) (Chronic 06/23/11) Ileostomy present (Inactive 01/21/14) Status post insertion of drug-eluting stent into right coronary artery for coronary artery disease (Inactive 05/06/16) Hematuria (Resolved) Ulcerative colitis (Resolved) Surgical History Status post colectomy (~1969) Status post transurethral resection of prostate Social History household members: friend(s) Smoking Status: Former smoker alcohol intake: current Social History household members: significant other Smoking Status: Former smoker alcohol intake: current Exam <Tita Alarcon PA-C - Last Filed: 03/22/19 19:00> Narrative Exam Narrative: GENERAL APPEARANCE: Frail appearing patient resting comfortably HEENT: PERRL, EOMI, conjunctiva somewhat pale NECK: Supple LUNGS: Clear to auscultation bilaterally aside from some right basilar crackles that clear with cough, no cough on exam. HEART: Rate and rhythm regular, normal S1 and S2, no S3 or S4. ABDOMEN: Soft, moderate generalized tenderness without guarding or rebound, nondistended, bowel sounds present x [address] EXTREMITIES: No edema, no calf tenderness DERMATOLOGIC: No jaundice or exanthem NEUROLOGIC: Alert and oriented with normal speech and coordination Initial Vital Signs Initial Vital Signs: Vital Signs Temperature 97.5 F L 03/22/19 16:25 Pulse Rate 91 H 03/22/19 16:25 Respiratory Rate 16 03/22/19 16:25 Blood Pressure 134/57 L 03/22/19 16:25 Pulse Oximetry 100 03/22/19 16:25 <Alyssa Martinez DO - Last Filed: 03/24/19 08:47> Initial Vital Signs Initial Vital Signs: Vital Signs Temperature 97.5 F L 03/22/19 16:25 Pulse Rate 91 H 03/22/19 16:25 Respiratory Rate 16 03/22/19 16:25 Blood Pressure 134/57 L 03/22/19 16:25 Pulse Oximetry 100 03/22/19 16:25 Course <Tita Alarcon PA-C - Last Filed: 03/22/19 19:00> Additional Information: Although patient does not complain of changes today such as worsening pain, new fever or signs of infection, he does have gradually worsening weakness, unable to manage ADLs safely or on his own, recurrent acute renal failure/kidney injury, hyperkalemia. He has no intention of dialysis and already had planned to start hospice, however has not been able to get evaluation (per social Work there is a waiting list). I have spoken with Dr. Perales who is cold roll packer sheet iron for PCP Dr. Diaz, who agrees admission is reasonable for hydration, antiemetics and pain medicine if needed and social work consultation in the morning for hospice consult. Social work is aware of this patient. Orders Ordered: Acetaminophen (Tylenol) 650 mg PO Q6HR PRN PRN Reason: As Needed for Fever/Mild Pain Hydrocodone Bitart/Acetaminophen ([place] 5/325) 1 tab PO Q4HR PRN PRN Reason: Pain, Moderate (4-6) Al Hydrox/Mg Hydrox/Simethicone (Maalox Plus) 30 ml PO Q6HR PRN PRN Reason: Dyspepsia Aspirin (Aspirin Ec) 81 mg PO DAILY COUNTS INCLUDE 234 BEDS AT THE [facility] Last Admin: 03/23/19 09:50 Dose: 81 mg Calcium Carbonate (Tums) 1,000 mg PO Q4HR PRN PRN Reason: Dyspepsia Last Admin: 03/23/19 01:12 Dose: 1,000 mg Clopidogrel Bisulfate (Plavix) 75 mg PO DAILY COUNTS INCLUDE 234 BEDS AT THE [facility] Last Admin: 03/23/19 09:50 Dose: 75 mg Hydromorphone HCl (Dilaudid) 1 mg IV Q6HR PRN PRN Reason: Pain, Severe (7-10) Last Admin: 03/23/19 16:55 Dose: 0.5 mg Sodium Chloride (Normal Saline 0.9%) 1,000 mls @ 60 mls/hr IV CONT COUNTS INCLUDE 234 BEDS AT THE [facility] Last Admin: 03/24/19 04:58 Dose: 100 mls/hr Infusion: 03/23/19 19:51 Dose: 100 mls/hr Admin: 03/23/19 09:51 Dose: 100 mls/hr Naloxone HCl (Narcan) 0.2 mg IV Q2MIN PRN PRN Reason: Opiate Reversal Ondansetron HCl (Zofran) 4 mg IV Q8HR PRN PRN Reason: Nausea And Vomiting Sodium Chloride (Normal Saline 0.9% Flush) 10 ml IV BID COUNTS INCLUDE 234 BEDS AT THE [facility] Last Admin: 03/23/19 20:20 Dose: 10 ml Admin: 03/23/19 09:50 Dose: 10 ml Sodium Chloride (Normal Saline 0.9% Flush) 10 ml IV PRN PRN PRN Reason: Flush Discontinued Medications Sodium Chloride (Normal Saline 0.9%) 1,000 mls @ 84 mls/hr IV CONT COUNTS INCLUDE 234 BEDS AT THE [facility] Last Infusion: 03/22/19 18:44 Dose: 0 mls/hr Admin: 03/22/19 16:54 Dose: 84 mls/hr Ondansetron HCl (Zofran) 4 mg IV NOW ONE Stop: 03/22/19 16:46 Last Admin: 03/22/19 16:54 Dose: 4 mg Vital Signs - 8 hr 03/24/19 05:55 03/24/19 08:29 Temperature 98.6 F Pulse Rate 94 H 88 Respiratory Rate 16 18 Blood Pressure 106/64 134/60 Pulse Oximetry 92 98 <Alyssa Martinez DO - Last Filed: 03/24/19 08:47> Orders Ordered: Acetaminophen (Tylenol) 650 mg PO Q6HR PRN PRN Reason: As Needed for Fever/Mild Pain Hydrocodone Bitart/Acetaminophen ([place] 5/325) 1 tab PO Q4HR PRN PRN Reason: Pain, Moderate (4-6) Al Hydrox/Mg Hydrox/Simethicone (Maalox Plus) 30 ml PO Q6HR PRN PRN Reason: Dyspepsia Aspirin (Aspirin Ec) 81 mg PO DAILY COUNTS INCLUDE 234 BEDS AT THE [facility] Last Admin: 03/23/19 09:50 Dose: 81 mg Calcium Carbonate (Tums) 1,000 mg PO Q4HR PRN PRN Reason: Dyspepsia Last Admin: 03/23/19 01:12 Dose: 1,000 mg Clopidogrel Bisulfate (Plavix) 75 mg PO DAILY COUNTS INCLUDE 234 BEDS AT THE [facility] Last Admin: 03/23/19 09:50 Dose: 75 mg Hydromorphone HCl (Dilaudid) 1 mg IV Q6HR PRN PRN Reason: Pain, Severe (7-10) Last Admin: 03/23/19 16:55 Dose: 0.5 mg Sodium Chloride (Normal Saline 0.9%) 1,000 mls @ 60 mls/hr IV CONT COUNTS INCLUDE 234 BEDS AT THE [facility] Last Admin: 03/24/19 04:58 Dose: 100 mls/hr Infusion: 03/23/19 19:51 Dose: 100 mls/hr Admin: 03/23/19 09:51 Dose: 100 mls/hr Naloxone HCl (Narcan) 0.2 mg IV Q2MIN PRN PRN Reason: Opiate Reversal Ondansetron HCl (Zofran) 4 mg IV Q8HR PRN PRN Reason: Nausea And Vomiting Sodium Chloride (Normal Saline 0.9% Flush) 10 ml IV BID COUNTS INCLUDE 234 BEDS AT THE [facility] Last Admin: 03/23/19 20:20 Dose: 10 ml Admin: 03/23/19 09:50 Dose: 10 ml Sodium Chloride (Normal Saline 0.9% Flush) 10 ml IV PRN PRN PRN Reason: Flush Discontinued Medications Sodium Chloride (Normal Saline 0.9%) 1,000 mls @ 84 mls/hr IV CONT COUNTS INCLUDE 234 BEDS AT THE [facility] Last Infusion: 03/22/19 18:44 Dose: 0 mls/hr Admin: 03/22/19 16:54 Dose: 84 mls/hr Ondansetron HCl (Zofran) 4 mg IV NOW ONE Stop: 03/22/19 16:46 Last Admin: 03/22/19 16:54 Dose: 4 mg Vital Signs - 8 hr 03/24/19 05:55 03/24/19 08:29 Temperature 98.6 F Pulse Rate 94 H 88 Respiratory Rate 16 18 Blood Pressure 106/64 134/60 Pulse Oximetry 92 98 MDM - Nausea/Vomiting/Diarrhea <Tita Alarcon PA-C - Last Filed: 03/22/19 19:00> Lab Data Result diagrams: 03/23/19 05:30 03/23/19 05:30 Lab Results 05/23/19 05/23/19 05/23/19 Range/Units 17:03 17:03 17:03 WBC 67.3 H* (4.5-11.0) X10^3/uL RBC 2.79 L (4.5-5.9) X10^6/uL Hgb 8.6 L (13.5-17.5) g/dL Hct 28.5 L (41-53) % MCV 102.0 H (80-100) fL MCH 30.7 (26-34) PG MCHC 30.1 (30-36) % RDW 14.2 (11.6-14.8) % Plt Count 190 (150-400) X10^3/uL Neut % (Auto) Not Reportable Lymph % (Auto) Not Reportable [place] % (Auto) Not Reportable Eos % (Auto) Not Reportable Baso % (Auto) Not Reportable Lymph # (Auto) Not Reportable [place] # (Auto) Not Reportable Baso # (Auto) Not Reportable Total Counted 100 Seg Neutrophils % 11.0 L D (38-70) % Band Neutrophils % (3-7) % Lymphocytes % (Manual) 88.0 H (25-45) % Atypical Lymphs % ( - 0) % Monocytes % (Manual) 1.0 L (2-11) % Neutrophils # (Manual) 7403 H (5529-4248) /uL Smudge Cells 1+ H RBC Morphology Normal morphology Anisocytosis Sodium 144 (137-145) mmol/L Potassium 4.8 (3.4-5.1) mmol/L Chloride 117 H (98-107) mmol/L Carbon Dioxide 12 L (22-32) mmol/L BUN 95 H (9-20) mg/dL Creatinine 4.70 H (0.66-1.25) mg/dL Estimated GFR 12.0 L (>60) mL/min BUN/Creatinine Ratio 20.2 (6-22) Glucose 93 (80-110) mg/dL Lactate 0.7 (0.7-2.1) mmol/L Calcium 8.9 (8.4-10.2) mg/dL Urine Color Urine Appearance Urine pH (4.5-8.0) Ur Specific Taylor (1.000-1.035) Urine Protein (Negative) Urine Glucose (UA) (Negative) g/dL Urine Ketones (NEGATIVE) Urine Occult Blood (Negative) Urine Nitrate (Negative) Urine Bilirubin (NEGATIVE) Urine Urobilinogen (0.2) E.U./dL Ur Leukocyte Esterase (NEGATIVE) Urine RBC (0-5/HPF) Urine WBC (0-5/HPF) Ur Squamous Epith Cells (0-5/HPF) Amorphous Sediment Urine Bacteria (None) Ur Culture Indicated? 03/23/19 03/23/19 03/23/19 Range/Units 01:27 05:30 05:30 WBC 59.9 H* (4.5-11.0) X10^3/uL RBC 2.34 L (4.5-5.9) X10^6/uL Hgb 7.2 L (13.5-17.5) g/dL Hct 24.0 L (41-53) % MCV 102.3 H (80-100) fL MCH 30.9 (26-34) PG MCHC 30.2 (30-36) % RDW 14.3 (11.6-14.8) % Plt Count 159 (150-400) X10^3/uL Neut % (Auto) Not Reportable Lymph % (Auto) Not Reportable [place] % (Auto) Not Reportable Eos % (Auto) Not Reportable Baso % (Auto) Not Reportable Lymph # (Auto) Not Reportable [place] # (Auto) Not Reportable Baso # (Auto) Not Reportable Total Counted 100 Seg Neutrophils % 10.0 L (38-70) % Band Neutrophils % 7.0 (3-7) % Lymphocytes % (Manual) 69.0 H (25-45) % Atypical Lymphs % 11.0 H ( - 0) % Monocytes % (Manual) 3.0 (2-11) % Neutrophils # (Manual) 74363 H (4971-1365) /uL Smudge Cells RBC Morphology See below Anisocytosis 1+ H Sodium 145 (137-145) mmol/L Potassium 5.1 (3.4-5.1) mmol/L Chloride 121 H (98-107) mmol/L Carbon Dioxide 11 L (22-32) mmol/L BUN 91 H (9-20) mg/dL Creatinine 4.70 H (0.66-1.25) mg/dL Estimated GFR 12.0 L (>60) mL/min BUN/Creatinine Ratio 19.4 (6-22) Glucose 85 (80-110) mg/dL Lactate (0.7-2.1) mmol/L Calcium 9.3 (8.4-10.2) mg/dL Urine Color Yellow Urine Appearance Clear Urine pH 5.0 (4.5-8.0) Ur Specific [place] 1.020 (1.000-1.035) Urine Protein 1+ H (Negative) Urine Glucose (UA) Negative (Negative) g/dL Urine Ketones Negative (NEGATIVE) Urine Occult Blood 1+ H (Negative) Urine Nitrate Negative (Negative) Urine Bilirubin Negative (NEGATIVE) Urine Urobilinogen Normal (0.2) E.U./dL Ur Leukocyte Esterase Negative (NEGATIVE) Urine RBC 1-5/hpf (0-5/HPF) Urine WBC 0-1/hpf (0-5/HPF) Ur Squamous Epith Cells 0-1 /hpf (0-5/HPF) Amorphous Sediment 1+ Urine Bacteria Occasional (0-1) (None) Ur Culture Indicated? Cult not indicated Imaging Data Abdominal x-ray: Radiologist's impression: 16 Tita Alarcon PA-C Find Patient Imaging Jake Hall 83 M 1935 ACTIVITY DATE EXAM STATUS AUTHOR 03/22/19 16:45 [place] [address] XRay Report Signed Patient: Jake Hall BMR#: [id number] : 6Acct:[id number] Age/Sex: 83 / MDate of Service: 03/22/19 Loc: [id number] Accession Number: [id number] Procedure: XR acute abdomen series Ordering Provider: Tita Alarcon P.A-C PROCEDURE: XR ACUTE ABDOMEN SERIES INDICATIONS: chronic abd pain, nausea, cancer TECHNIQUE: One view chest and two views of the abdomen were acquired. COMPARISON: [facility], XR ACUTE ABDOMEN SERIES, 11/30/2018, 11:57. [facility], ABDOMEN ACUTE SERIES, 07/05/2014, 12:45. FINDINGS: Surgical changes and devices: None. Chest: Lungs are clear. Heart size is normal. No pleural effusions. No pneumoperitoneum. Abdomen: Bowel gas pattern is normal. No suspicious calcifications. Visualized solid organ contours appear normal. Bones: No suspicious bony lesions. IMPRESSION: Nonspecific bowel gas pattern. Scattered surgical clips noted over the lower abdomen and pelvis but these have been previously present. No subdiaphragmatic free air. Dictated by: Juan Carlos Vela M.D. on 03/22/2019 at 17:45 Approved by: Juan Carlos Vela M.D. on 03/22/2019 at 17:46 <Alyssa Michelle, DO - Last Filed: 03/24/19 08:47> Lab Data Lab Results 03/22/19 03/22/19 03/22/19 Range/Units 17:03 17:03 17:03 WBC 67.3 H* (4.5-11.0) X10^3/uL RBC 2.79 L (4.5-5.9) X10^6/uL Hgb 8.6 L (13.5-17.5) g/dL Hct 28.5 L (41-53) % MCV 102.0 H (80-100) fL MCH 30.7 (26-34) PG MCHC 30.1 (30-36) % RDW 14.2 (11.6-14.8) % Plt Count 190 (150-400) X10^3/uL Neut % (Auto) Not Reportable Lymph % (Auto) Not Reportable [place] % (Auto) Not Reportable Eos % (Auto) Not Reportable Baso % (Auto) Not Reportable Lymph # (Auto) Not Reportable [place] # (Auto) Not Reportable Baso # (Auto) Not Reportable Total Counted 100 Seg Neutrophils % 11.0 L D (38-70) % Band Neutrophils % (3-7) % Lymphocytes % (Manual) 88.0 H (25-45) % Atypical Lymphs % ( - 0) % Monocytes % (Manual) 1.0 L (2-11) % Neutrophils # (Manual) 7403 H (2684-1025) /uL Smudge Cells 1+ H RBC Morphology Normal morphology Anisocytosis Sodium 144 (137-145) mmol/L Potassium 4.8 (3.4-5.1) mmol/L Chloride 117 H (98-107) mmol/L Carbon Dioxide 12 L (22-32) mmol/L BUN 95 H (9-20) mg/dL Creatinine 4.70 H (0.66-1.25) mg/dL Estimated GFR 12.0 L (>60) mL/min BUN/Creatinine Ratio 20.2 (6-22) Glucose 93 (80-110) mg/dL Lactate 0.7 (0.7-2.1) mmol/L Calcium 8.9 (8.4-10.2) mg/dL Urine Color Urine Appearance Urine pH (4.5-8.0) Ur Specific Taylor (1.000-1.035) Urine Protein (Negative) Urine Glucose (UA) (Negative) g/dL Urine Ketones (NEGATIVE) Urine Occult Blood (Negative) Urine Nitrate (Negative) Urine Bilirubin (NEGATIVE) Urine Urobilinogen (0.2) E.U./dL Ur Leukocyte Esterase (NEGATIVE) Urine RBC (0-5/HPF) Urine WBC (0-5/HPF) Ur Squamous Epith Cells (0-5/HPF) Amorphous Sediment Urine Bacteria (None) Ur Culture Indicated? 03/23/19 03/23/19 03/23/19 Range/Units 01:27 05:30 05:30 WBC 59.9 H* (4.5-11.0) X10^3/uL RBC 2.34 L (4.5-5.9) X10^6/uL Hgb 7.2 L (13.5-17.5) g/dL Hct 24.0 L (41-53) % MCV 102.3 H (80-100) fL MCH 30.9 (26-34) PG MCHC 30.2 (30-36) % RDW 14.3 (11.6-14.8) % Plt Count 159 (150-400) X10^3/uL Neut % (Auto) Not Reportable Lymph % (Auto) Not Reportable [place] % (Auto) Not Reportable Eos % (Auto) Not Reportable Baso % (Auto) Not Reportable Lymph # (Auto) Not Reportable [place] # (Auto) Not Reportable Baso # (Auto) Not Reportable Total Counted 100 Seg Neutrophils % 10.0 L (38-70) % Band Neutrophils % 7.0 (3-7) % Lymphocytes % (Manual) 69.0 H (25-45) % Atypical Lymphs % 11.0 H ( - 0) % Monocytes % (Manual) 3.0 (2-11) % Neutrophils # (Manual) 15202 H (7393-1698) /uL Smudge Cells RBC Morphology See below Anisocytosis 1+ H Sodium 145 (137-145) mmol/L Potassium 5.1 (3.4-5.1) mmol/L Chloride 121 H (98-107) mmol/L Carbon Dioxide 11 L (22-32) mmol/L BUN 91 H (9-20) mg/dL Creatinine 4.70 H (0.66-1.25) mg/dL Estimated GFR 12.0 L (>60) mL/min BUN/Creatinine Ratio 19.4 (6-22) Glucose 85 (80-110) mg/dL Lactate (0.7-2.1) mmol/L Calcium 9.3 (8.4-10.2) mg/dL Urine Color Yellow Urine Appearance Clear Urine pH 5.0 (4.5-8.0) Ur Specific Taylor 1.020 (1.000-1.035) Urine Protein 1+ H (Negative) Urine Glucose (UA) Negative (Negative) g/dL Urine Ketones Negative (NEGATIVE) Urine Occult Blood 1+ H (Negative) Urine Nitrate Negative (Negative) Urine Bilirubin Negative (NEGATIVE) Urine Urobilinogen Normal (0.2) E.U./dL Ur Leukocyte Esterase Negative (NEGATIVE) Urine RBC 1-5/hpf (0-5/HPF) Urine WBC 0-1/hpf (0-5/HPF) Ur Squamous Epith Cells 0-1 /hpf (0-5/HPF) Amorphous Sediment 1+ Urine Bacteria Occasional (0-1) (None) Ur Culture Indicated? Cult not indicated Discharge Plan Departure Patient Disposition: Admitted as Observation Clinical Impression: Weakness, Dehydration Acute renal failure Qualifiers: Acute renal failure type: unspecified Qualified Code(s): N17.9 - Acute kidney failure, unspecified Mantle cell lymphoma Qualifiers: Lymphoma site: unspecified region Qualified Code(s): C83.10 - Mantle cell lymphoma, unspecified site Discharge Date/Time: 03/22/19 18:45 Interventions: ED Discharge Assessment Last Done: 03/22/19 18:23 Admit Date/Time: 03/22/19 17:35 Admit Provider: Margareth Perales <Alyssa Martinez DO - Last Filed: 03/24/19 08:47> Cosign ED Attending Veroature Attestation: I was immediately available in the department for consultation. Documentation has been reviewed. I agree with assessment and plan.
[2019-03-22] MEDS: SODIUM CHLORIDE 0.9% 1,000 ML 84 ML IV (16:54)
[2019-03-22] MEDS: ONDANSETRON 4 MG/2 ML INJ IV (16:54)
[2019-03-22 17:15] LABS: Hematocrit 28.5 % (41-53); Hemoglobin 8.6 g/dL (13.5-17.5); Mean Corpuscular HGB Conc 30.1 % (30-36); Mean Corpuscular Hemoglobin 30.7 PG (26-34); Platelet Count 190 X10^3/uL (150-400); Red Blood Cell Count 2.79 X10^6/uL (4.5-5.9); Red Cell Distribution Width 14.2 % (11.6-14.8)
[2019-03-22 17:18] LABS: Add Manual Diff / Slide Review YES; White Blood Cell Count 67.3 X10^3/uL (4.5-11.0)
[2019-03-22 17:22] LABS: BUN Creatinine Ratio 20.2 (6-22); Blood Urea Nitrogen 95 mg/dL (9-20); Calcium 8.9 mg/dL (8.4-10.2); Carbon Dioxide 12 mmol/L (22-32); Chloride 117 mmol/L (98-107); Glucose 93 mg/dL (80-110); HEMOLYSIS < 15 (0-50); Lactate (Lactic Acid) 0.7 mmol/L (0.7-2.1); Potassium 4.8 mmol/L (3.4-5.1); Sodium 144 mmol/L (137-145)
[2019-03-22 17:40] VITALS: BP 129/57; PULSE 84; RESP 18; O2SAT 99
[2019-03-22 18:01] LABS: Total Cells Counted 100
[2019-03-22 18:03] LABS: Neutrophils Absolute Manual 7403 /uL (3000-5900); RBC Morphology Normal Morphology; Smudge Cells 1+
[2019-03-22 18:25] VITALS: BP 123/52; PULSE 88; RESP 17; O2SAT 100
[2019-03-22 18:55] VITALS: BP 120/72; PULSE 90; RESP 20; TEMP 36.4; O2SAT 96
[2019-03-22 20:31] VITALS: BMI 20.5
--- NOTE | 2019-03-22 20:59 | P.HP_ITS ---
History of Present Illness Date Patient Seen: 03/22/19 Time Patient Seen: 18:06 Chief complaint: RENAL FAILURE PER RN Narrative: Patient is an 83 yo male with a second recurrence of mantal cell lymphoma who was seen at the infusion clinic this afternoon for fluids and found to have worsening renal function. He is here with his daughter and product management specialist. After 2 liters of fluid there he was sent to the ED for evaluation. He has had abdominal pain which has been pretty constant and not changed today. His product management specialist believes that his voice has improved since the administration of fluids. He hasn't had much to eat in the past 4 days. Not much to drink either. He has had diarrhea through his ostomy. He has history of c. ciff and Review of his chart shows negative c. diff just a week ago. Patient has made a decision at this point that he wants to be comfortable. Hospice consult has been been placed and daughter reports that they had an informational meeting scheduled for tomorrow afternoon. 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) Coronary artery disease (Chronic ~04/2016) Peripheral vascular disease (Chronic) GERD (gastroesophageal reflux disease) (Chronic) Mixed hyperlipidemia (Chronic 06/23/11) Elevated prostate specific antigen (PSA) (Chronic 06/23/11) Ileostomy present (Inactive 01/21/14) Status post insertion of drug-eluting stent into right coronary artery for coronary artery disease (Inactive 05/06/16) Hematuria (Resolved) Ulcerative colitis (Resolved) Surgical History Status post colectomy (~1969) Status post transurethral resection of prostate Social History household members: friend(s) Smoking Status: Former smoker alcohol intake: current Family & Social History Social History: household members friend(s) Safety & Behavioral: Feels Safe in Current Yes Environment Been Physically Hurt or No Threatened By a Person Suicidal Ideation Description None Suicide Plan Description No Plan Tobacco & Substance use: Smoking Status Former smoker alcohol intake current alcohol intake frequency 0-2 drinks per day Substance Use Type does not use Meds Home Medications Medication Instructions Recorded Confirmed Type clopidogrel 75 mg tablet 75 mg PO DAILY 08/10/18 03/22/19 History aspirin 81 mg PO DAILY 11/30/18 03/22/19 History ibrutinib 560 mg PO DAILY #30 tab 03/08/19 03/22/19 Rx tramadol 50 mg tablet 50 mg PO Q8H PRN #30 tab 03/15/19 03/22/19 Rx Allergies Allergy/AdvReac Type Severity Reaction Status Date / Time No Known Drug Allergies Allergy Verified 03/22/19 16:25 Review of Systems Review of Systems All systems reviewed & are unremarkable except as noted in HPI and below Gastrointestinal Gastrointestinal: Reports abdominal pain and Reports change in bowel habits Exam Vital Signs (past 8 hours): - 03/22/19 16:25 03/22/19 17:40 03/22/19 18:25 Temperature 97.5 F L Pulse Rate 91 H 84 88 Respiratory Rate 16 18 17 Blood Pressure 134/57 L Blood Pressure [Left Arm] 129/57 L 123/52 L Pulse Oximetry 100 99 100 03/22/19 18:55 Temperature 97.6 F Pulse Rate 90 Respiratory Rate 20 Blood Pressure 120/72 Blood Pressure [Left Arm] Pulse Oximetry 96 Oxygen Delivery Method Room Air Oxygen Flow Rate 0 Narrative Exam Narrative: GEN: elderly, pale, cachectic, male, no acute distress HEENT: mucosa dry HEART: RRR LUNGS: CTA bilaterally EXT: warm, mild edema Objective Labs Result Diagrams: 03/22/19 17:03 03/22/19 17:03 Labs: Laboratory Results - last 24 hr 03/22/19 03/22/19 03/22/19 17:03 17:03 17:03 WBC 67.3 H* RBC 2.79 L Hgb 8.6 L Hct 28.5 L MCV 102.0 H MCH 30.7 MCHC 30.1 RDW 14.2 Plt Count 190 Neut % (Auto) Not Reportable Lymph % (Auto) Not Reportable [place] % (Auto) Not Reportable Eos % (Auto) Not Reportable Baso % (Auto) Not Reportable Lymph # (Auto) Not Reportable [place] # (Auto) Not Reportable Baso # (Auto) Not Reportable Total Counted 100 Seg Neutrophils % 11.0 L D Lymphocytes % (Manual) 88.0 H Monocytes % (Manual) 1.0 L Neutrophils # (Manual) 7403 H Smudge Cells 1+ H RBC Morphology Normal morphology Sodium 144 Potassium 4.8 Chloride 117 H Carbon Dioxide 12 L BUN 95 H Creatinine 4.70 H Estimated GFR 12.0 L BUN/Creatinine Ratio 20.2 Glucose 93 Lactate 0.7 Calcium 8.9 Assessment & Plan Assessment & Plan narrative: 83 yo male with: 1) mantel cell lymphoma. Patient currently desires to be kept comfortable. will treat his nausea and pain. he is now beyond treatment. 2) acute on chronic renal failure. dehydration certainly a component. certainly feels that dialysis is not an option for him at this point. he is more com fortable after fluids and will continue with these while he is here. Did discuss the futility of dialysis. 3) hospice informational visit. 4) CAD. will continue his asa and plavis for now. Code status: DNR DVT prophylaxis: contraindicated, end of life care Disposition: home with hospice once this is set up.
[2019-03-23] VITALS (8 sets, daily range): BP systolic 112–134; BP diastolic 55–62; PULSE 84–98; RESP 17–20; TEMP 36.3–37.1; O2SAT 96–100
[2019-03-23] MEDS: CALCIUM CARBONATE 500 MG TAB 1000 MG PO (01:12)
--- NOTE | 2019-03-23 02:21 | PC.NURSE ---
Addendum entered by Jenny Gaona R.N. 03/23/19 06:04: Slept most of shift. Had 225cc stool from ileostomy and voided total of 300cc this shift. When asked will say abdomen is tender but declines pain medication. Original Note: Patient is mostly oriented; soft spoken and indecisive. When asking about pain or nausea patient vague with responses. Breath sounds CTA with RA sat of 97%. HRR. Indicates abdominal/stomach discomfort but denies nausea; medicated with Tums and discussed if that does not relieve sx can try pain medications and/or antiemetics. BT present and has ileostomy on right side of abdomen. Denies dysuria, frequency or urgency but states he has minimal UOP. Did get up to bathroom and voided 150cc clear, yellow urine. Able to move self in bed but is very weak when up so requires assistance and uses walker. Appeared to get SOB with exertion of walking to/from bathroom. Fall risk score is high and bed alarm is activated.
[2019-03-23 03:36] LABS: Appearance Urine UA Clear; Color Urine UA YELLOW
[2019-03-23 03:37] LABS: Amorphous Sediment Urine 1+; Bacteria Urine Occasional (0-1); Bilirubin Urine UA Negative (NEGATIVE); Culture Indicated Urine Cult Not Indicated; Glucose Urine UA NEGATIVE (Negative); Ketones Urine UA NEGATIVE (NEGATIVE); Leukocyte Esterase Urine UA NEGATIVE (NEGATIVE); Nitrite Urine UA NEGATIVE (Negative); Occult Blood Urine UA 1+ (Negative); Protein Urine UA 1+ (Negative); RBC Urine 1-5/HPF (0-5/HPF); Squamous Epithelial Cell Urine 0-1 /HPF (0-5/HPF); Urobilinogen Urine UA Normal E.U./dL (0.2); WBC Urine 0-1/HPF (0-5/HPF)
[2019-03-23 06:22] LABS: Hemoglobin 7.2 g/dL (13.5-17.5); Mean Corpuscular HGB Conc 30.2 % (30-36); Mean Corpuscular Hemoglobin 30.9 PG (26-34); Mean Corpuscular Volume 102.3 fL (80-100); Platelet Count 159 X10^3/uL (150-400); Red Blood Cell Count 2.34 X10^6/uL (4.5-5.9); Red Cell Distribution Width 14.3 % (11.6-14.8)
[2019-03-23 06:24] LABS: Add Manual Diff / Slide Review YES
[2019-03-23 06:26] LABS: BUN Creatinine Ratio 19.4 (6-22); Blood Urea Nitrogen 91 mg/dL (9-20); Calcium 9.3 mg/dL (8.4-10.2); Carbon Dioxide 11 mmol/L (22-32); Chloride 121 mmol/L (98-107); Glucose 85 mg/dL (80-110); HEMOLYSIS < 15 (0-50); Potassium 5.1 mmol/L (3.4-5.1); Sodium 145 mmol/L (137-145)
[2019-03-23 06:42] LABS: White Blood Cell Count 59.9 X10^3/uL (4.5-11.0)
[2019-03-23 07:10] LABS: Neutrophils Absolute Manual 10183 /uL (3000-5900); Total Cells Counted 100
[2019-03-23 07:12] LABS: Anisocytosis 1+
[2019-03-23] MEDS: ASPIRIN EC 81 MG TABLET PO (09:50)
[2019-03-23] MEDS: CLOPIDOGREL 75 MG TABLET PO (09:50)
[2019-03-23] MEDS: SODIUM CHLORIDE 0.9% FLUSH 10 ML IV ×2 (09:50→20:20)
[2019-03-23] MEDS: SODIUM CHLORIDE 0.9% 1,000 ML 100 ML IV (09:51)
--- NOTE | 2019-03-23 12:46 | PT.IPTN ---
Current Diagnoses Dysphagia, unspecified (03/22/19) Physical Therapy Treatment Note M3 PT-IP Subjective Start: 03/23/19 12:44 Freq: NEEDED Status: Active Protocol: Document 03/23/19 12:45 AB (Rec: 03/23/19 12:45 AB [id number]) Subjective Physical Therapy Visit Type Notes pt on hold for PT eval this morning pending hospice consult.
--- NOTE | 2019-03-23 13:18 | PC.NURSE ---
Day shift: Pt has been calm and cooperative with care. Urine output OK. NS started this AM per Dr Jolly. ABD pain minimal. Does not want any pain meds. Denies any nausea. Family in room for support. Will go home on hospice when all lined up. VS stable. WBC's 59.9. RA 96%. GFR 12. Some SOB with activity. Ostomy site patent.
--- NOTE | 2019-03-23 14:02 | PT.IPTN ---
Current Diagnoses Dysphagia, unspecified (03/22/19) Physical Therapy Treatment Note M3 PT-IP Subjective Start: 03/23/19 12:44 Freq: NEEDED Status: Active Protocol: Document 03/23/19 13:59 AB (Rec: 03/23/19 14:02 AB [id number]) Subjective Physical Therapy Visit Type Notes talked to pt and informed regarding PT eval and pt requested to hold off on PT. stated that he is considering hospice and currently has hospice consult and pt wants to wait until hospice consult result.
--- NOTE | 2019-03-23 14:03 | OT.IP.TRT ---
Current Diagnoses Dysphagia, unspecified (03/22/19) Occupational Therapy Treatment Note M3 OT- IP Subjective and Pain Start: 03/23/19 13:55 Freq: Status: Active Protocol: Document 03/23/19 13:55 [facility] (Rec: 03/23/19 14:03 [facility] [id number]) OT- Subjective Occupational Therapy Visit Type Type Patient Refusal Notes Approached pt for OT eval with PT. Pt not wanting to have any therapy at this time and states looking into hospice at this time. Therefore hold OT eval at this time until further confirmation of hospice results.
--- NOTE | 2019-03-23 14:17 | CM.SWNOTE ---
DCP: RIGGER HELPER reviewed chart and met with family for d/c planning needs. PCP: Dr. Diaz Payor: [facility] [place] RIGGER HELPER met with pt, dtr and his significant other, Yen, to discuss their questions and planning needs for discharge. Pt is anticipated to remain in the hospital over the weekend for continuous fluids. RIGGER HELPER discussed options for hiring in-home care, and provided resources for local caregiving agencies. Pt's preference is to d/c home with hospice, and is not willing to consider a SNF for placement option. Discussed in more detail the services that hospice will provide, including ostomy care, which was one of their concerns. Discussed DME needs, which RIGGER HELPER forwarded on to hospice for delivery planning. Pt/family had many questions about the [employer], and the process. RIGGER HELPER provided teaching re: the steps involved in completing the process, what to expect with the ingestion process, and the resource in the community that assists families with all of the steps involved. Family will plan to move the furniture out of the area where the hospital bed will be placed. Pt presents as much more peaceful and resolved in his decision to focus on comfort and end of life, and no longer desires to move forward with obtaining the oral chemo medication that he was going to continue to take while on hospice. He feels that his worsening kidney function failure led him to this decision. Dtr is coping much better than she had over these last few days, and expresses supporting this plan that her father has decided on. Discharge Planning/Care Management Advanced directive, confirm from FAMILY Start: 03/22/19 20:33 Freq: Q24H Status: Active Protocol: Document 03/22/19 20:33 KMD (Rec: 03/22/19 20:34 KMD [id number]) Advance Directive, confirm on record Time 20:34 Person contacted Pt Copy received No CM Discharge Assessment Start: 03/23/19 14:06 Freq: Status: Active Protocol: Document 03/23/19 14:06 DPL (Rec: 03/23/19 14:17 DPL [id number]) Discharge Planning Assessment Assigned Senior Director Finance KELSEY Fields DPOA/Assigned Designee Name Sherine Mejia Contact Information Advance Directives? Yes Advance Directives on File Yes History Provided By Patient Medical Record Expected Length of Stay 3 Has Patient been admitted in last 30 No days? Prior Living Arrangements House Household Members significant other Comment Pt resides with long-time life partner, Yen. His dtr lives nearby and is very active in his care. Type of transporation used prior to Drives own vehicle admit Comment Pt will no longer be able to drive. Either his dtr or his significant other will drive him. Independent with ADL's Yes Is patient alert and oriented? Yes Needs Assistance With Bathing Grooming Meal Prep Toileting Managing Medications Home Chores / Shopping Comment RIGGER HELPER provided pt/family the list of care agencies locally available. They will begin calling today to secure in- home, hired care prior to his d/c. Caregiver for Another No Community Services used prior to Social Work admission: Comment Pt is also an oncology patient here at , has been working closely with the ONC RIGGER HELPER re: financial assistance for oral chemo meds, care planning and goals conversations. DME Already Rented / Owned Cane Comment RIGGER HELPER called [facility] and left a message for the referral center requesting the following DME: bed, over the bedside table, O2, wheelchair, walker, shower bench, commode, and baby monitor. Comment Pt will be d/c home with hospice. Comment Pt is waiting for an opening to admit to hospice, they are currently full to capacity, but they anticipate having an opening in the coming days. Barriers to Discharge Yes Comment Barriers at this time include the need to hire in-home care, hospice availability to admit . Discharge Plan Home Transportation Arrangement Daughter or friend Referrals Initiated Other Additional Comment Hospice and caregiving resources. Whiteboard Updated in Patient Room with Yes name and ext. # of Senior Director Finance
--- NOTE | 2019-03-23 15:53 | P.PN_ITS ---
Subjective Date Patient Seen: 03/23/19 Time Patient Seen: 07:25 Interval history: Patient feels improved overnight with fluids. Is able to sit at the side of the bed and sit up. Had a lengthy discussion with patient about his goals of care. He has some mild abdominal pain. has no appetite. Exam Vital Signs (past 8 hours): - 03/23/19 08:10 03/23/19 08:42 03/23/19 12:00 Temperature 97.4 F L 97.9 F Pulse Rate 92 H 88 Respiratory Rate 17 20 Blood Pressure 114/55 L 116/58 L Pulse Oximetry 96 96 98 Oxygen Delivery Method Room Air Oxygen Flow Rate 0 Narrative Exam Narrative: GEN: elderly, pale, cachectic, male, no acute distress HEENT: mucosa dry HEART: RRR LUNGS: CTA bilaterally EXT: warm, mild edema Objective Labs Result Diagrams: 03/23/19 05:30 03/23/19 05:30 Labs: Laboratory Results - last 24 hr 03/22/19 03/22/19 03/22/19 17:03 17:03 17:03 WBC 67.3 H* RBC 2.79 L Hgb 8.6 L Hct 28.5 L MCV 102.0 H MCH 30.7 MCHC 30.1 RDW 14.2 Plt Count 190 Neut % (Auto) Not Reportable Lymph % (Auto) Not Reportable [place] % (Auto) Not Reportable Eos % (Auto) Not Reportable Baso % (Auto) Not Reportable Lymph # (Auto) Not Reportable [place] # (Auto) Not Reportable Baso # (Auto) Not Reportable Total Counted 100 Seg Neutrophils % 11.0 L D Band Neutrophils % Lymphocytes % (Manual) 88.0 H Atypical Lymphs % Monocytes % (Manual) 1.0 L Neutrophils # (Manual) 7403 H Smudge Cells 1+ H RBC Morphology Normal morphology Anisocytosis Sodium 144 Potassium 4.8 Chloride 117 H Carbon Dioxide 12 L BUN 95 H Creatinine 4.70 H Estimated GFR 12.0 L BUN/Creatinine Ratio 20.2 Glucose 93 Lactate 0.7 Calcium 8.9 Urine Color Urine Appearance Urine pH Ur Specific [place] Urine Protein Urine Glucose (UA) Urine Ketones Urine Occult Blood Urine Nitrate Urine Bilirubin Urine Urobilinogen Ur Leukocyte Esterase Urine RBC Urine WBC Ur Squamous Epith Cells Amorphous Sediment Urine Bacteria Ur Culture Indicated? 03/23/19 03/23/19 03/23/19 01:27 05:30 05:30 WBC 59.9 H* RBC 2.34 L Hgb 7.2 L Hct 24.0 L MCV 102.3 H MCH 30.9 MCHC 30.2 RDW 14.3 Plt Count 159 Neut % (Auto) Not Reportable Lymph % (Auto) Not Reportable [place] % (Auto) Not Reportable Eos % (Auto) Not Reportable Baso % (Auto) Not Reportable Lymph # (Auto) Not Reportable [place] # (Auto) Not Reportable Baso # (Auto) Not Reportable Total Counted 100 Seg Neutrophils % 10.0 L Band Neutrophils % 7.0 Lymphocytes % (Manual) 69.0 H Atypical Lymphs % 11.0 H Monocytes % (Manual) 3.0 Neutrophils # (Manual) 02674 H Smudge Cells RBC Morphology See below Anisocytosis 1+ H Sodium 145 Potassium 5.1 Chloride 121 H Carbon Dioxide 11 L BUN 91 H Creatinine 4.70 H Estimated GFR 12.0 L BUN/Creatinine Ratio 19.4 Glucose 85 Lactate Calcium 9.3 Urine Color Yellow Urine Appearance Clear Urine pH 5.0 Ur Specific [place] 1.020 Urine Protein 1+ H Urine Glucose (UA) Negative Urine Ketones Negative Urine Occult Blood 1+ H Urine Nitrate Negative Urine Bilirubin Negative Urine Urobilinogen Normal Ur Leukocyte Esterase Negative Urine RBC 1-5/hpf Urine WBC 0-1/hpf Ur Squamous Epith Cells 0-1 /hpf Amorphous Sediment 1+ Urine Bacteria Occasional (0-1) Ur Culture Indicated? Cult not indicated Assessment & Plan Assessment & Plan narrative: Assessment & Plan narrative: 83 yo male with: 1) mantel cell lymphoma. Patient currently desires to be kept comfortable. will treat his nausea and pain. up until this evening he had not received any pain medication. Did receive 0.25 mg of hydromorphone. Would transition to oral liquid hydromorphone and preparation for discharge. He understands that he is now beyond treatment. 2) acute on chronic renal failure. dehydration certainly a component. certainly feels that dialysis is not an option for him at this point. he is more comfortable after fluids and will continue with these untill tomorrow. Did discuss the futility of dialysis. 3) hospice informational visit this afternoon and they will start delivering equipment over the weekend. Discharge once equipment has arrived. 4) CAD. will continue his asa and plavix for now. Code status: DNR DVT prophylaxis: contraindicated, end of life care Disposition: home with hospice once this is set up anticipate another 48 hours care. Time Spent With Patient Time with patient: Greater than 35 minutes
[2019-03-23] MEDS: HYDROMORPHONE 1 MG INJ IV (16:55)
[2019-03-24] VITALS (9 sets, daily range): BP systolic 106–134; BP diastolic 53–67; PULSE 83–94; RESP 16–20; TEMP 36.4–37; O2SAT 92–100
--- NOTE | 2019-03-24 01:16 | PC.NURSE ---
2300- Pt admit for dehydration, DNR status. Moving SBA w/ FWW; tolerating regular diet; NS running as ordered. Ostomy in place w/ pt doing his own care regarding that.
[2019-03-24] MEDS: SODIUM CHLORIDE 0.9% 1,000 ML 100 ML IV (04:58)
--- NOTE | 2019-03-24 08:19 | PM.PN.1 ---
Subjective Date Patient Seen: 03/24/19 Time Patient Seen: 08:19 Interval history: Patient seen and evaluated resting comfortably this morning. Has a dry mouth and a runny nose. Met with hospice yesterday. Plan is for him to be discharged with hospice. He is okay with that. Has an attentive caregiver and daughter. His questions were answered. Patient has no pain. Exam Vital Signs (past 8 hours): - 03/24/19 00:33 03/24/19 05:55 Temperature 98.3 F 98.6 F Pulse Rate 91 H 94 H Respiratory Rate 16 16 Blood Pressure 124/61 106/64 Pulse Oximetry 99 92 Oxygen Delivery Method Room Air Oxygen Flow Rate 0 Narrative Exam Narrative: Gen.: Alert good historian HEENT: Pupils equal round and reactive or mucosa is dry neck is supple Cardio: S1-S2 regular rate and rhythm Respiratory: Lungs are clear Abdomen: Soft Extremities: No significant edema Neurologic: Grossly intact. Objective Labs Result Diagrams: 03/23/19 05:30 03/23/19 05:30 Assessment & Plan Assessment & Plan narrative: 1) mantel cell lymphoma. Patient currently desires to be kept comfortable. Hospice met yesterday. Awaiting for final go ahead on that. Once hospice is arranged for home patient will go home with hospice. 2) acute on chronic renal failure. Still getting mild IV fluid hydration. Decrease IV fluid today. 3) hospice informational visit. Patient is agreed to go on hospice will be discharged once everything is in place that maybe later today or tomorrow. 4) CAD. will continue his asa and plavix for now.
[2019-03-24] MEDS: CLOPIDOGREL 75 MG TABLET PO (09:37)
[2019-03-24] MEDS: ASPIRIN EC 81 MG TABLET PO (09:37)
[2019-03-24] MEDS: SODIUM CHLORIDE 0.9% FLUSH 10 ML IV (09:38)
[2019-03-24] MEDS: HYDROCODONE/ACET 5/325 TABLET 1 TAB PO (09:40)
--- NOTE | 2019-03-24 10:00 | PT.IIE ---
Current Diagnoses Dysphagia, unspecified (03/22/19) Surgical History (Last Reviewed 03/22/19 @ 17:04 by Tita Alarcon PA-C) Status post colectomy (~1970) Status post transurethral resection of prostate Medical History (Last Reviewed 03/22/19 @ 17:04 by Tita Alarcon PA-C) 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) Coronary artery disease (Chronic ~04/2016) Peripheral vascular disease (Chronic) GERD (gastroesophageal reflux disease) (Chronic) Mixed hyperlipidemia (Chronic 06/23/11) Elevated prostate specific antigen (PSA) (Chronic 06/23/11) Ileostomy present (Inactive 01/21/14) Status post insertion of drug-eluting stent into right coronary artery for coronary artery disease (Inactive 05/06/16) Hematuria (Resolved) Ulcerative colitis (Resolved) Physical Therapy Inpatient Evaluation/Re-Eval M1 PT/OT-IP Prior Functional Status Start: 03/23/19 12:44 Freq: NEEDED Status: Active Protocol: Document 03/24/19 10:00 AB (Rec: 03/24/19 11:30 AB [id number]) Medical Review Prior Functional Status Medical History Reviewed Yes Communication able to make needs known Mobility and Gait pt stated that he is modified independent with all mobilities and ambulation using SPC Social History Household Members significant other Living Arrangements House Number of Floors (Floors) One Floor Number of Stairs To Enter/Railing? no steps to enter Home Environment Walk in Shower Home Equipment Straight Cane Hospital Bed Grab Bars In Shower Additional Social History Comment pt stated that his significant other will not be able to physically assist him or assist him with his ostomy bag pt has has a walking stick stated that hospice is delivering a hospital bed to his home today M1 PT/OT-IP Prior Functional Status Start: 03/23/19 13:55 Freq: NEEDED Status: Active Protocol: Document 03/24/19 10:00 AB (Rec: 03/24/19 11:30 AB [id number]) M2 PT-IP Current Condition Start: 03/23/19 12:44 Freq: NEEDED Status: Active Protocol: Document 03/24/19 10:00 AB (Rec: 03/24/19 11:30 AB [id number]) Physical Therapy Current Condition Current Condition Evaluation Date 03/24/19 Treatment Diagnosis acute kidney failure; lymphoma ; generalized weakness Onset Date 03/22/19 Precautions Other Precautions ostomy bag M3 PT-IP Subjective Start: 03/23/19 12:44 Freq: NEEDED Status: Active Protocol: Document 03/24/19 10:00 AB (Rec: 03/24/19 11:30 AB [id number]) Subjective Physical Therapy Visit Type Type Initial Evaluation Visit Start Time 10:00 Visit Stop Time 10:51 Total Visit Minutes 51 Number of LICENSED EMBALMER Visits 0 Physical Therapy Visit Comments Patient Comments pt not wanting to do any PT but agreed to participate with PT eval to determine d/c needs. stated that he is planning on going home and has hospice services. Patient Goals to go home Therapy Pain Assessment Pain When Pain Assessed At Rest Pain Present Pain Present Pain Reported Location Abdomen Scale Used pain level not stated Pain Management Techniques Re-positioning Timing of Activity with Medications M4 PT-IP Mobility and Gait Start: 03/23/19 12:44 Freq: NEEDED Status: Active Protocol: Document 03/24/19 10:00 AB (Rec: 03/24/19 11:30 AB [id number]) PT-Bed Mobility Assessment Supine to Sit Supine to Sit Standby Assistance Head of Bed Elevated Sit to Supine Sit to Supine Standby Assistance Head of Bed Elevated PT-Transfer Assessment Sit to and From Stand Sit to and from Stand Contact Guard Assistance 1 Person Assistance Use of Upper Extremities Equipment Transfer Assistive Device Gait Belt Front Wheeled Walker Orthotic/Prosthetic Devices or Brace: No Comments Mobility Comments pt completed sit to stand from EOB CGA. refused to ambulate but completed marching in place x 3 reps using FWW CGA. pt requested to go back to bed afterwards. Gait Assessment Comments Gait Comments pt refused to do ambulation PT-Balance Assessment Sitting Balance and Reactions Static Sitting Balance Ability Good Dynamic Sitting Balance Ability Good Standing Balance and Reactions Static Standing Balance Ability Fair Dynamic Standing Balance Ability Fair Device Used FWW M5 PT-IP Objective Assessments Start: 03/23/19 12:44 Freq: NEEDED Status: Active Protocol: Document 03/24/19 10:00 AB (Rec: 03/24/19 11:30 AB [id number]) Orientation Orientation/Cognition Level of Alertness Alert Orientation Name Place Situation Gross Range of Motion Lower Extremity ROM Assessment Within Functional Limits Strength Lower Extremity Strength Assessment Bilaterally Impaired Hip 4-/5 Knee 4-/5 Sensation Assessment Sensation Gross Sensation WNL Muscle Tone Muscle Tone WNL Yes M6 PT-IP Treatment Start: 03/23/19 12:44 Freq: NEEDED Status: Active Protocol: Document 03/24/19 10:00 AB (Rec: 03/24/19 11:30 AB [id number]) Physical Therapy Treatment Education Education Provided Safety M7 PT-IP Assessment and Plan Start: 03/23/19 12:44 Freq: NEEDED Status: Active Protocol: Document 03/24/19 10:00 AB (Rec: 03/24/19 11:30 AB [id number]) PT Summary Assessment and Plan Potential Rehabilitation Potential Fair Status of Condition at Evaluation Evolving Summary Impairments Pain ROM Strength Balance Coordination Sensation Tone Cognition Bed Mobility Transfers Gait Activity Tolerance Assessment Summary PT eval completed to determine pt's level of assistance and d/c needs. pt plans to go home and receive hospice care. pt will need a hospital bed, shower chair with back rest, FWW. pt will also require caregiver services and bath aide. pt requested not to have any PT while here in the hospital. No further PT intervention indicated at this time. Informed caseworker regarding pt's status and d/c recommendations. Frequency of Treatment Frequency Of Treatment Discharge Recommendations To Nursing Amount of Assist Needed 1 Person Assist Discharge Recommendations PT Discharge Recommendations Home with 23/05 Assist Other Discharge Recommendations caregiver services; bath aide Equipment Needed for Home Before hospital bed; FWW, shower Discharge chair with back
--- NOTE | 2019-03-24 14:17 | PC.NURSE ---
day shift pt emptied his own ostomy, was not measured. c/o pain this AM, medicated with norco, crushed pills for pt as he couldn't take large pills and small pills he choked on previously. visitors off and on throughout shift.
--- NOTE | 2019-03-24 15:40 | CM.DPNOTE ---
TC placed to [facility]W, spoke w/Gissel. She explains DME is being delivered today, hospital bed, bedside table, O2, and w/c. glove wrapper can assess for shower chair and walker. Hospice admission date unknown until Anitra's return Tuesday03.26.19. Spoke w/ Ramandeep, PT. She explains pt will likely be able to go home w/family but they would benefit from cg training before DC. Ramandeep suggests a walker and shower chair be added to the Hospice DME list to help the family. No BSC needed since pt has an ostomy and uses a urinal to void. No opportunity today to review DCP w/pt and his family, no family at bedside all day. It's expected that family could likely take pt home tomorrow since DME has been already delivered ? This needs to be reviewed w/pt's dtr Sherine and partner Yen. Family was reportedly working on arranging private paid cgs to assist w/pt's long-term care once home. P: DC home, likely w/in 24-48hrs. No physician input for this TRAFFIC OR SYSTEM DISPATCHER today, although, the medical team likely awaiting a safe DCP for comfort management. Following closely, addtl. coordination needed w/pt and family. KELSEY Fields
--- NOTE | 2019-03-24 16:24 | PC.NURSE ---
1600- Pt resting quietly in bed with eyes closed. Awakens easily, A/O x3, 100%RA, LS clear. BT+ denies nausea, reported poor appetite. VSS. Chronic iliostomy with indep care. Uses urinal with SBA to void. requests to change ostomy appliance tomorrow morning with Inna. Plan to discharge tomorrow, home with hospice. Bed alarm on.
[2019-03-24] MEDS: ONDANSETRON 4 MG/2 ML INJ IV (18:00)
[2019-03-25 00:25] VITALS: O2SAT 97
[2019-03-25 03:00] VITALS: BP 122/60; PULSE 95; RESP 16; TEMP 37; O2SAT 96
--- NOTE | 2019-03-25 07:32 | PC.NURSE ---
Denies any pain all shift. Ambulated x3 to the BR. Indep. with ostomy care, voided x3 & 1 unmeasured. Will cont. POC & monitor.
[2019-03-25 07:55] VITALS: O2SAT 96
[2019-03-25 08:27] VITALS: BP 109/58; PULSE 93; RESP 17; TEMP 36.4; O2SAT 95
[2019-03-25] MEDS: CLOPIDOGREL 75 MG TABLET PO (09:54)
[2019-03-25] MEDS: ASPIRIN EC 81 MG TABLET PO (09:54)
[2019-03-25] MEDS: SODIUM CHLORIDE 0.9% 1,000 ML 60 ML IV (10:14)
--- NOTE | 2019-03-25 10:40 | PM.DS.1 ---
History of Present Illness Chief complaint: RENAL FAILURE PER patient services specialist Providers Date of admission: 03/22/19 17:35 Discharge Date: 03/24/19 Primary care physician: Nicko Diaz MD Consults: 03/22/19 18:58 Consult to Discharge Planning Routine Comment: Consult to Pumper Helper Routine Comment: 03/23/19 08:55 Consult to Occupational Therapy Evaluate & Treat Comment: Physician Instructions: Evaluate and treat Consult to Physical Therapy Evaluate & Treat Comment: Physician Instructions: Evaluate and Treat Discharge provider: Wilbur Abdul MD Summary Discharge Diagnosis: Mantle cell lymphoma Acute on chronic renal failure Dehydration Coronary artery disease Hospital Course: Patient was admitted the hospital for increasing weakness dehydration and lymphoma. Patient hospital stay consisted of IV fluid hydration electrolyte management and food. Patient had a hospice evaluation and consultation. He has had this before. He has gone through the course of not wanting to treat his lymphoma to treating to back not treating. Patient has elected this point after discussion with his partner as well as the daughter that he is going to go home with hospice. He is in agreement with that. Arrangements have been made with hospice equipment has delivered to his house today and he would like to go home with hospice comfort care. Exam Vital Signs (past 8 hours): - 03/25/19 03:00 03/25/19 07:55 03/25/19 08:27 Temperature 98.6 F 97.5 F L Pulse Rate 95 H 93 H Respiratory Rate 16 17 Blood Pressure 122/60 109/58 L Pulse Oximetry 96 96 95 Oxygen Delivery Method Room Air Oxygen Flow Rate 0 Narrative Exam Narrative: Gen.: Alert and oriented x3 no apparent distress. HEENT: NCAT PERRLA tympanic membranes are clear nares are patent oral mucosa is moist no tonsillar hypertrophy neck is supple without lymphadenopathy no thyroid enlargement. Cardio: S1-S2 regular rate and rhythm no murmurs appreciated. Respiratory: Lungs are clear to auscultation no wheezes or crackles normal respiratory effort. Abdomen: Soft nontender no rebound or guarding no liver spleen enlargement no appreciable hernias Extremities: Full range of motion no appreciable weakness no cyanosis or edema. Objective Labs Result Diagrams: 03/23/19 05:30 03/23/19 05:30 Discharge Plan Discharge Plan Patient Disposition: Hospice - Home Discharge comment: Home with hospice Discharge Med Rec/Prescriptions Prescriptions: Continued clopidogrel [Plavix] 75 mg tablet 75 mg PO DAILY RF: 0 tramadol 50 mg tablet 50 mg PO Q8H PRN (Reason: pain) Qty: 30 RF: 0 ibrutinib 560 mg Tablet 560 mg PO DAILY Qty: 30 RF: 11 aspirin 81 mg Tablet,Delayed Release (Dr/Ec) 81 mg PO DAILY RF: 0 Follow up/Referrals: Nicko Diaz MD [Primary Care Provider] - Visit Report/Discharge Packet Instructions: End of Life Care Visit Report Forms: Stroke Signs & Symptoms Discharge Data Primary Care Provider: Nicko Diaz Attending Provider: Margareth Perales Admit Date/Time: 03/22/19 17:35 Discharges patient from system. Discharge Date/Time: 03/25/19 13:40
--- NOTE | 2019-03-25 10:43 | P.DS_ITS ---
History of Present Illness Chief complaint: RENAL FAILURE PER financial assistance specialist Providers Date of admission: 03/22/19 17:35 Discharge Date: 03/24/19 Primary care physician: Nicko Diaz MD Consults: 03/22/19 18:58 Consult to Discharge Planning Routine Comment: Consult to Et[employer] Software Engineer Routine Comment: 03/23/19 08:55 Consult to Occupational Therapy Evaluate & Treat Comment: Physician Instructions: Evaluate and treat Consult to Physical Therapy Evaluate & Treat Comment: Physician Instructions: Evaluate and Treat Discharge provider: Wilbur Abdul MD Summary Discharge Diagnosis: Mantle cell lymphoma Acute on chronic renal failure Dehydration Coronary artery disease Hospital Course: Patient was admitted the hospital for increasing weakness dehydration and lymphoma. Patient hospital stay consisted of IV fluid hydration electrolyte management and food. Patient had a hospice evaluation and consultation. He has had this before. He has gone through the course of not wanting to treat his lymphoma to treating to back not treating. Patient has elected this point after discussion with his partner as well as the daughter that he is going to go home with hospice. He is in agreement with that. Arrangements have been made with hospice equipment has delivered to his house to day and he would like to go home with hospice comfort care. Exam Vital Signs (past 8 hours): - 03/25/19 03:00 03/25/19 07:55 03/25/19 08:27 Temperature 98.6 F 97.5 F L Pulse Rate 95 H 93 H Respiratory Rate 16 17 Blood Pressure 122/60 109/58 L Pulse Oximetry 96 96 95 Oxygen Delivery Method Room Air Oxygen Flow Rate 0 Narrative Exam Narrative: Gen.: Alert and oriented x3 no apparent distress. HEENT: NCAT PERRLA tympanic membranes are clear nares are patent oral mucosa is moist no tonsillar hypertrophy neck is supple without lymphadenopathy no thyroid enlargement. Cardio: S1-S2 regular rate and rhythm no murmurs appreciated. Respiratory: Lungs are clear to auscultation no wheezes or crackles normal respiratory effort. Abdomen: Soft nontender no rebound or guarding no liver spleen enlargement no appreciable hernias Extremities: Full range of motion no appreciable weakness no cyanosis or edema. Objective Labs Result Diagrams: 03/23/19 05:30 03/23/19 05:30 Discharge Plan Discharge Plan Patient Disposition: Hospice - Home Discharge comment: Home with hospice Discharge Med Rec/Prescriptions Prescriptions: Continued clopidogrel [Plavix] 75 mg tablet 75 mg PO DAILY RF: 0 tramadol 50 mg tablet 50 mg PO Q8H PRN (Reason: pain) Qty: 30 RF: 0 ibrutinib 560 mg Tablet 560 mg PO DAILY Qty: 30 RF: 11 aspirin 81 mg Tablet,Delayed Release (Dr/Ec) 81 mg PO DAILY RF: 0 Follow up/Referrals: Nicko Diaz MD [Primary Care Provider] - Visit Report/Discharge Packet Instructions: End of Life Care Visit Report Forms: Stroke Signs & Symptoms Discharge Data Primary Care Provider: Nicko Diaz Attending Provider: Margareth Perales Admit Date/Time: 03/22/19 17:35 Discharges patient from system. Discharge Date/Time: 03/25/19 13:40
--- NOTE | 2019-03-25 12:36 | CM.DPC ---
DCP Discharge home with Hospice Per MD, pt is medically stable to d/c home today with Comfort Care/Hospice and family support. Pt states that he is ready to d/c home and be in his own space with family. CALLY called pt's Dtr Sherine and updated on d/c today and she states they were anticipating this and that she and pt's Sig Other Yen will be bedside later this morning and are agreeable with d/c home where Hospice DME was already delivered. Sherine will plan to get pt's meds and scripts from the RN to fill pt's comfort meds prior to taking pt home and RN will help walk family through the d/c pwk. OT will work with family and pt on final CG training for support at home. CALLY provided Dtr with pt's MCR Rights and she acknowledged understanding and is agreeable with d/c home today and gave verbal signature via phone on Medicare Message. Dtr acknowledged that their preference is to provide transportation home for the pt and declined SW setting up any transportation. CALLY faxed pt's d/c summary to [facility] to review towards opening pt to service after discharge home today. Plan: Patient to d/c home today on Comfort Care via Dtr POV and [facility] to open pt to service likely early this week. KELSEY Jones
--- NOTE | 2019-03-25 13:46 | PC.NURSE ---
Discharge Provided d/c Rx to pt's daughter and she took them to town and picked up Rx. D/c instructions provided to pt,, SO and daughter. Aware that hospice will be admitting pt in next few days and if they have any additional questions to contact hospice or Dr Diaz. Pt states he took all belongings with him and left in w/c with MANAGER DELI escort.
--- NOTE | 2019-03-25 15:41 | OT.IP.EVAL ---
Current Diagnoses Dysphagia, unspecified (03/22/19) Past Medical History (Last Reviewed 03/22/19 @ 17:04 by Tita Alarcon PA-C) 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) Coronary artery disease (Chronic ~04/2016) Peripheral vascular disease (Chronic) GERD (gastroesophageal reflux disease) (Chronic) Mixed hyperlipidemia (Chronic 06/23/11) Elevated prostate specific antigen (PSA) (Chronic 06/23/11) Ileostomy present (Inactive 01/21/14) Status post insertion of drug-eluting stent into right coronary artery for coronary artery disease (Inactive 05/06/16) Hematuria (Resolved) Ulcerative colitis (Resolved) Surgical History (Last Reviewed 03/22/19 @ 17:04 by Tita Alarcon PA-C) Status post colectomy (~1969) Status post transurethral resection of prostate Occupational Therapy Inpatient Evaluation/Re-Eval M1 PT/OT-IP Prior Functional Status Start: 03/23/19 13:55 Freq: NEEDED Status: Active Protocol: Document 03/25/19 15:32 CGR (Rec: 03/25/19 15:40 CGR [email or web address]) Medical Review Prior Functional Status Medical History Reviewed Yes Communication able to make needs known Mobility and Gait pt stated that he is modified independent with all mobilities and ambulation using SPC Social History Household Members significant other Living Arrangements House Number of Floors (Floors) One Floor Number of Stairs To Enter/Railing? no steps to enter Home Environment Walk in Shower Home Equipment Straight Cane Hospital Bed Grab Bars In Shower Employment Status Retired Additional Social History Comment pt stated that his significant other will not be able to physically assist him or assist him with his ostomy bag pt has has a walking stick stated that hospice is delivering a hospital bed to his home today M2 OT-IP Current Condition Start: 03/23/19 13:55 Freq: Status: Active Protocol: Document 03/25/19 15:32 CGR (Rec: 03/25/19 15:40 CGR [email or web address]) Occupational Therapy Current Condition Current Condition Evaluation Date 03/25/19 Treatment Diagnosis Acute renal failure M3 OT- IP Subjective and Pain Start: 03/23/19 13:55 Freq: Status: Active Protocol: Document 03/25/19 15:32 CGR (Rec: 03/25/19 15:40 CGR [email or web address]) OT- Subjective Occupational Therapy Visit Type Type Initial Evaluation Visit Start Time 12:03 Visit Stop Time 12:47 Total Visit Minutes 44 Occupational Therapy Visit Comments Patient Comments I knew I had a terminal cancer but I wants expecting this with the renal failure. Patient/Caregiver Goals To go home. OT Pain Assessment Pain When Pain Assessed At Rest Pain Present Pain Present Denied Pain M4 OT- IP ADL's Start: 03/23/19 13:55 Freq: Status: Active Protocol: Document 03/25/19 15:32 CGR (Rec: 03/25/19 15:40 CGR [email or web address]) OT ADL-Grooming Comments OT Grooming Comments Not performed OT ADL-Oral Care Comments Oral Care Comments Not performed OT ADL-Dressing General Eval Lower Body Dressing Ability Total Assistance Comments OT Dressing Comments socks OT ADL-Toileting Comments OT Toileting Comments Pt declined need M5 OT- IP IADL's Start: 03/23/19 13:55 Freq: Status: Active Protocol: Document 03/25/19 15:32 CGR (Rec: 03/25/19 15:40 CGR [email or web address]) OT-Instrumental Activities of Daily Living Deficits IADL Deficits Identified Deficits Home Safety Awareness Awareness of Need for Assistance at Home Good Awareness Ability to Problem Solve Emergency Able to Problem Solve Situations Medication Management Medication Management Caregiver Administers Money Management Money Management Caregiver Provides Assistance Meal Preparation Meal Preparation Caregiver Provides Assist Development Expert Development Expert Caregiver Provides Assist Driving Driving Caregiver Provides Assist M6 OT- IP Functional Cognition Start: 03/23/19 13:55 Freq: Status: Active Protocol: Document 03/25/19 15:32 CGR (Rec: 03/25/19 15:40 CGR [email or web address]) Cognitive Factors Limiting Selfcare Function Cognitive Ability Level of Alertness Alert Patient Orientation Name Age Birthday Month Date Year Day of Week Place Situation Attention Span Ability Capable of Focused Attention Ability to Follow Commands Able to Follow One Step Commands Memory Description No Deficits Noted Safety Awareness No Deficits Noted Problem Solving Ability No deficits Noted Executive Function Ability No Deficits Noted OT- Vision and Hearing OT- Hearing Assessment OT- Hearing Assessment WFL OT- Vision Assessment Visual Acuity WFL M7 OT- IP Mobility and Balance Start: 03/23/19 13:55 Freq: Status: Active Protocol: Document 03/25/19 15:32 CGR (Rec: 05/26/19 15:40 CGR [email or web address]) OT- Bed Mobility Assessment Rolling Type of Rolling Roll to Left Level of Assistance Standby Assistance Supine to Sit Supine to Sit Assist Standby Assistance Sit to Supine Sit to Supine Assist Standby Assistance Scooting Scooting to Edge of Bed Standby Assistance Scooting Up and Down in Bed Standby Assistance OT-Transfer Assessment Sit to and From Stand Sit to and from Stand Standby Assistance Transfers Transfer Ability Standby Assistance Technique Transfer Destination Bed Devices Transfer Assistive Devices Front Wheeled Walker Comments Mobility Comments Pt spent most of session seated EOB for discussion of home safety and equipment needs OT- Balance Assessment Sitting Balance and Reactions Static Sitting Balance Ability Good Dynamic Sitting Balance Ability Good M8 OT- IP Objective Assessments Start: 03/23/19 13:55 Freq: Status: Active Protocol: Document 03/25/19 15:32 CGR (Rec: 03/25/19 15:40 CGR [email or web address]) OT Gross Range of Motion Upper Extremity Range of Motion Assessment Within Functional Limits OT Strength Upper Extremity Strength Assessment Within Functional Limits Comments Strength Comments Grossly 4-/5 OT- Coordination Assessment Upper Extremity Finger to Nose Test Within Functional Limits Finger Tapping Test Within Functional Limits OT Sensation Assessment Edema Edema Present Edema Comments Minimal noted to the RUE M9 OT- IP Assessment and Plan Start: 03/23/19 13:55 Freq: Status: Active Protocol: Document 03/25/19 15:32 CGR (Rec: 03/25/19 15:40 CGR [email or web address]) OT Summary Assessment and Plan Potential Rehabilitation Potential Fair Analytic Complexity at Evaluation Moderate Summary OT Impairments Strength Balance Functional Mobility Grooming Dressing Toileting Bathing Toilet Transfers Shower Transfers Assessment Summary Pt assessed for current function and session spent discussing likelyhood of declining function. Family and pt educated on how to assist pt with mobility and ADLs. DME recommendations made to family. Frequency of Treatment Frequency Of Treatment Discharge Discharge Recommendations Other Discharge Recommendations BSC and removable shower head.
== END 2019-03-25 13:40 | disposition hospice, home (50) | DRG 683 ==
LOC: ED 17:28 → AC 03-23 06:40
PROVIDERS: Admitting Provider Family Medicine; Emergency Provider Internal Medicine; Family Provider Internal Medicine; PCP Internal Medicine; Visit Provider Family Medicine
DX: N17.9 Acute kidney failure, unspecified (principal); R64 Cachexia; C83.13 Mantle cell lymphoma, intra-abdominal lymph nodes; Z68.20 Body mass index [BMI] 20.0-20.9, adult; E86.0 Dehydration; I25.10 Atherosclerotic heart disease of native coronary artery without angina pectoris; I73.9 Peripheral vascular disease, unspecified; Z93.2 Ileostomy status; Z87.891 Personal history of nicotine dependence
CPT/HCPCS: 36415; 74022; 80048; 81001; 83605; 85025; 96361; 96374; 96375; 96376; 97162; 97166; 97530; 97535; 99217; 99220; 99222; 99232; 99233; 99234; 99238; 99283; 99284; G0378; J1170; J2405